=== PATIENT | male | born 1935 | race Caucasian/White ===

== ENCOUNTER 2017-03-30 11:50 | Outpatient (CLI) | payer OTHER, MEDICARE ==
--- NOTE | 2017-03-30 13:09 | RAD ---
CHEST TWO VIEWS: History: Dyspnea. Comparison: 12-10-16 FINDINGS: The cardiac silhouette is upper limits of normal in size. Lungs remain hyperinflated. Extensive scar ring at the right base is similar in appearance to the prior study. There is no lobar consolidation, pneumothorax or pleural fluid evident. Degenerative changes involve the thoracic spine on the later al view. IMPRESSION: COPD and other chronic type findings are stable. POS: [facility]
== END 2017-03-30 11:51 | disposition home or self-care (01) ==
LOC: RAD 11:50
PROVIDERS: ATTEND Internal Medicine Pulmonary Disease
DX: R06.00 Dyspnea, unspecified (principal); J44.9 Chronic obstructive pulmonary disease, unspecified
CPT/HCPCS: 71020

== ENCOUNTER 2017-07-29 13:56 | Outpatient (CLI) | payer OTHER, MEDICARE ==
--- NOTE | 2017-07-29 21:28 | RAD ---
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 pulmonar y nodule. is stable. No acute abnormalities evident. IMPRESSION: Please see redictated report. . POS: [facility]
== END 2017-07-29 13:57 | disposition home or self-care (01) ==
LOC: RAD 13:56
PROVIDERS: ATTEND Thoracic Surgery (Cardiothoracic Vascular Surgery)
DX: C34.31 Malignant neoplasm of lower lobe, right bronchus or lung (principal)
CPT/HCPCS: 71046

== ENCOUNTER 2017-08-09 14:19 | Observation (INO) | payer OTHER, MEDICARE ==
[2017-08-09 14:58] LABS: #Eosinphils 0.2 thou/uL (0.0-0.7); #Lymphocytes 1.2 thou/uL (1.20-3.40); #Monocytes 0.8 thou/uL (0.11-0.59); %Basophils 0.6 % (0.0-1.0); %Eosinophils 2.6 % (0.0-10.0); %Lymphocytes 19.8 % (21.0-51.0); %Monocytes 12.2 % (0.0-10.0); %Neutrophils 64.8 % (42.0-75.0); Hemoglobin 10.7 g/dL (14.0-18.0); Mean Corpuscular HGB CONC 32.6 g/dL (32.0-36.0); Mean Corpuscular Hemoglobin 26.9 pg (27.0-31.0); Mean Corpuscular Volume 82.5 fl (80.0-94.0); Mean Platelet Volume 8.4 fL (7.4-10.4); Platelet Count 255 thou/uL (130-400); RBC Distribution Width 12.8 % (11.5-14.5); Red Blood Cell (RBC) Count 3.96 mill/uL (4.70-6.10); White Blood Cell (WBC) Count 6.1 thou/uL (4.8-10.8)
[2017-08-09 15:23] LABS: ALT (SGPT) 11 U/L (8-55); AST (SGOT) 19 U/L (5-34); Albumin 3.9 g/dL (3.4-4.8); Alkaline Phosphatase 35 U/L (40-150); Anion Gap 13 mmol/L (10-20); BUN (Urea Nitrogen) 25 mg/dL (8.4-25.7); Bilirubin, Total 0.4 mg/dL (0.2-1.2); Calc. Creatinine Clearance 0 mL/min (70-130); Calcium 9.3 mg/dL (7.8-10.44); Carbon Dioxide 22 mmol/L (23-31); Chloride 96 mmol/L (98-107); Estimated GFR-MDRD 38; Globulin 2.9 g/dL (2.4-3.5); Glucose 196 mg/dL (83-110); Potassium 4.4 mmol/L (3.5-5.1); Protein, Total 6.8 g/dL (5.8-8.1); Sodium 127 mmol/L (136-145)
[2017-08-09 15:27] LABS: CKMB 1.4 ng/mL (0-6.6); Troponin I 0.011 ng/mL (< 0.028)
--- NOTE | 2017-08-09 15:44 | RAD ---
PORTABLE CHEST: Date: 08/09/17 HISTORY: Chest pain. COMPARISON: 05/25/17. FINDINGS: Parenchymal stranding in the right lung base is stable. Lung chapa appear well aerated and clear. No infiltrate or vascular congestion seen. Heart size upper normal and stable. IMPRESSION: No acute process. POS: [facility]
[2017-08-09 16:08] LABS: Magnesium 2.2 mg/dL (1.6-2.6); Phosphorus 3.9 mg/dL (2.3-4.7)
[2017-08-09] MEDS ORDERED: Senokot 8.6 MG TAB PO PRN (17:44)
[2017-08-09] MEDS ORDERED: Calcium Carbonate 500 MG ChewTAB PO PRN (17:44)
[2017-08-09] MEDS ORDERED: Milk Of Magnesia 30 ML UDCUP PO PRN (17:44)
[2017-08-09] MEDS ORDERED: Nitroglycerin 0.4 MG TAB (25 Tab Bottle) PO PRN (17:44)
[2017-08-09] MEDS ORDERED: Acetaminophen 325 MG TAB PO PRN (17:44)
[2017-08-09] MEDS ORDERED: Mag-Al 1200 mg/1200 mg/30 ML UDCUP PO PRN (17:44)
[2017-08-09 18:15] VITALS: BMI 33.9
[2017-08-09 18:43] LABS: Troponin I 0.015 ng/mL (< 0.028)
[2017-08-09] MEDS: Sodium Chloride 0.9% 1,000 ML IV SCH (19:49)
[2017-08-09] MEDS ORDERED: Atorvastatin Calcium 10 MG TAB PO SCH ×2 (20:30→21:00)
[2017-08-09] MEDS ORDERED: Dronedarone HCl 400 MG TAB PO SCH (20:30)
[2017-08-09] MEDS ORDERED: Insulin Regular 300 UNITS/3 ML VIAL SC PRN ×2 (20:39)
[2017-08-09] MEDS ORDERED: Dextrose 50% Abboject 50 ML SYRINGE SLOW IVP PRN (20:39)
[2017-08-09] MEDS ORDERED: Dextrose 5% in Water 1,000 ML IV PRN (20:39)
--- NOTE | 2017-08-09 20:45 | PDOC.PN ---
- Subjective Encounter Start Date: 08/09/17 Encounter Start Time: 18:00 Patient seen and examined. - Objective Resuscitation Status: Resuscitation Status FULL:Full Resuscitation MAR Reviewed: Yes Vital Signs & Weight: Vital Signs (12 hours) Temp Pulse Resp BP Pulse Ox 08/09/17 19:33 97.5 F L 77 18 148/86 H 95 08/09/17 17:55 98.1 F 71 20 143/72 H 96 Weight Weight 229 lb 9.6 oz I&O: 08/08/17 08/09/17 08/10/17 06:59 06:59 06:59 Intake Total 240 Balance 240 Result Diagrams: 08/09/17 14:45 08/10/17 04:18 Additional Labs: Laboratory Tests 08/09/17 08/09/17 08/09/17 14:45 14:45 18:09 Troponin I 0.011 0.015 B-Natriuretic Peptide 583.8 H 08/09/17 20:45 Troponin I 0.010 B-Natriuretic Peptide Radiology Reviewed by me: Yes (CXR - no infiltrate/edema) EKG Reviewed by me: Yes (Afib) Phys Exam - Physical Examination Constitutional: NAD HEENT: PERRLA, moist MMs, sclera anicteric Neck: no nodes, no JVD, supple Respiratory: no wheezing, no rales, no rhonchi, clear to auscultation bilateral Cardiovascular: no significant murmur, no rub, irregular no heaves/pulsations Gastrointestinal: soft, non-tender, no distention, positive bowel sounds Musculoskeletal: no edema, pulses present Neurological: non-focal, normal sensation, moves all 4 limbs Psychiatric: normal affect, A&O x 3 Skin: no rash Dx/Plan - Plan * Please see H&P Review of Systems - Review of Systems Constitutional: weakness, malaise. negative: fever, chills, sweats Eyes: Vision Change (blurring of vision - resolved). negative: Pain, Conjunctivae Inflammation, Eyelid Inflammation, Redness ENT: negative: Ear Pain, Ear Discharge, Nose Pain, Nose Discharge, Nose Congestion, Mouth Pain, Mouth Swelling, Throat Pain, Throat Swelling, Other Respiratory: negative: Cough, Dry, Shortness of Breath, Hemoptysis, SOB with Excertion, Pleuritic Pain, Sputum, Wheezing Cardiovascular: negative: chest pain, palpitations, orthopnea, paroxysmal nocturnal dyspnea, edema, light headedness Gastrointestinal: negative: Nausea, Vomiting, Abdominal Pain, Diarrhea, Constipation, Melena, Hematochezia Genitourinary: negative: Dysuria, Frequency, Incontinence, Hematuria, Retention Musculoskeletal: Shoulder Pain (left). negative: Neck Pain, Arm Pain, Back Pain , Hand Pain, Leg Pain, Foot Pain Skin: negative: Rash, Lesions, Hardeep, Bruising, Other Neurological: negative: Weakness, Numbness, Incoordination, Change in Speech, Confusion, Seizures - Medications/Allergies Allergies/Adverse Reactions: Allergies Allergy/AdvReac Type Severity Reaction Status Date / Time No Known Allergies Allergy Verified 08/09/17 18:59 Medications: Current Medications Acetaminophen (Tylenol) 650 mg PO Q4H PRN PRN Reason: Headache/Fever or Pain Al Hydroxide/Mg Hydroxide (Maalox) 30 ml PO Q6H PRN PRN Reason: Heartburn or Indigestion Amlodipine Besylate (Norvasc) 2.5 mg PO DAILY [facility] Aspirin (Aspirin Chewable) 81 mg PO DAILY [facility] Atorvastatin Calcium (Lipitor) 10 mg PO HS [facility] Calcium Carbonate (Tums) 1,000 mg PO Q4H PRN PRN Reason: Heartburn or Indigestion Dextrose/Water (Dextrose 50%) 25 gm SLOW IVP PRN PRN PRN Reason: Hypoglycemia Dronedarone (Multaq) 400 mg PO NOW [facility]1983 Stop: 08/09/17 22:30 Dronedarone (Multaq) 400 mg PO BID-[facility] Fenofibrate (Tricor) 145 mg PO DAILY [facility] Glucagon (Glucagon) 1 mg IM PRN PRN PRN Reason: Hypoglycemia Sodium Chloride (Normal Saline 0.9%) 1,000 mls @ 50 mls/hr IV .Q20H [facility] Last Admin: 08/09/17 19:49 Dose: 1,000 mls Dextrose/Water (D5w) 1,000 mls @ 0 mls/hr IV .Q0M PRN; As Directed PRN Reason: Hypoglycemia Insulin Detemir 25 units/ (Miscellaneous Medication) 0.25 mls @ 0 mls/hr SC HS MELANIA Insulin Human Regular (Humulin R) 0 units SC .MILD SLIDING SCALE PRN PRN Reason: Mild Correctional Scale Insulin Human Regular (Humulin R) 0 units SC .BEDTIME SLIDING SC PRN PRN Reason: Bedtime Correctional Scale Magnesium Hydroxide (Milk Of Magnesium) 30 ml PO DAILYPRN PRN PRN Reason: Constipation Nitroglycerin (Nitrostat) 0.4 mg PO Q5MIN PRN PRN Reason: Chest Pain Non-Formulary Medication (Nebivolol Hcl [Bystolic]) 10 mg PO DAILY MELANIA Rivaroxaban (Xarelto) 15 mg PO DAILY MELANIA Senna (Senokot) 2 tab PO HSPRN PRN PRN Reason: Constipation
[2017-08-09] MEDS ORDERED: Insulin Detemir 100 UNITS/ML 25 UNITS in Admixture Fee SC SCH (21:00)
[2017-08-09 21:27] LABS: Anion Gap 10 mmol/L (10-20); BUN (Urea Nitrogen) 21 mg/dL (8.4-25.7); Calc. Creatinine Clearance 55 mL/min (70-130); Carbon Dioxide 24 mmol/L (23-31); Chloride 100 mmol/L (98-107); Estimated GFR-MDRD 44; Glucose 154 mg/dL (83-110); Potassium 4.2 mmol/L (3.5-5.1); Sodium 130 mmol/L (136-145)
--- NOTE | 2017-08-09 22:35 | CON ---
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 The patient sta wesley that early this morning, he was not feeling well. His sugar was on the low side. Over the day, his weakness became progressive. He also had some diplopia. For that reason, he went to the ER for further evaluation. Initially, the serum sodium was noted to be at 127 and creatinine was at 1.7. Hence, the renal consultation. REVIEW OF SYSTEMS: Positive for generalized malaise. No nausea, no vomiting. Positive for blurry v ision. No overt chest pain, no shortness of breath, no nausea, no vomiting, no syncopal episode, no productive cough. No fever or chills. Appetite is fair. Energy level is fair. No gross hematuria, no dysuria, no urinary frequency. MEDICATIONS: Home medications include Januvia 100 mg daily, glyburide 5 mg q.a.m., Xarelto 15 mg scotty ly, Bystolic 10 mg daily, insulin Tresiba 35-38 units subcu at bedtime, TriCor 145 mg once a day, Mul taq 400 mg p.o. b.i.d., atorvastatin 10 mg tab at bedtime, amlodipine 2.5 mg once a day, aspirin 81 m g daily. PAST MEDICAL HISTORY: 1. Hypertension. 2. 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 3. History of pancreatic mass. 4. Lung cancer - in remission. 5. Chronic atrial fibrillation ? 6. Hyperlipidemia. 7. Status post pneumonia. 8. Type 2 diabetes mellitus. 9. History of SIADH. PAST SURGICAL HISTORY: 1. Status post left knee surgery. 2. Status post right lower lobectomy with mediastinal lymph node dissection. 3. Status post cholecystectomy. SOCIAL HISTORY: The patient is [facility], is single. No children. Several siblings. Smoke d only for 4 years, less than half a pack a day. Alcohol rarely. Education, college graduate. No I V drug abuse. No blood transfusion. FAMILY HISTORY: No family history of ESRD. ALLERGIES: None. TRAUMA: None. IMMUNIZATIONS: Up-to-date. HOSPITALIZATIONS: Please see past medical history. PHYSICAL EXAMINATION: VITAL SIGNS: Currently pending. GENERAL: Awake, comfortable, not in overt distress. SKIN: Adequate turgor. HEENT: Pinkish conjunctivae. Anicteric sclerae. NECK: No neck mass, no carotid bruits, no JVD. LUNGS: Clear breath sounds. No wheezing, no crackles. HEART: Normal sinus rhythm. No murmur, no gallops, no rubs. ABDOMEN: Globular, soft, nontender. EXTREMITIES: No edema, no deformities. LABORATORY DATA: Laboratories of 08/09/2017, white count 6.1, hemoglobin 10.7. Sodium 127, potassiu m 4.4, chloride 96, carbon dioxide 22, BUN 25, creatinine 1.74, GFR 38 mL per minute, glucose 196, ca lcium 9.3, serum osmolality 276, alkaline phosphatase 35, albumin is 3.9. BNP is 583.8. IMAGING: Chest x-ray is clear, no CHF, no infiltrates. ASSESSMENT AND PLAN: 1. Hyponatremia, consider the possibility of hypovolemic hyponatremia since the patient has had decr eased p.o. intake. However, with empiric volume repletion and if this is simply from volume depletio n, the serum sodium should improve. 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 He has had chronic hyponatremia in the past. The serum sodiu m of 127 is near baseline. 2. Chronic renal failure - consider the possibility of hypertensive nephropathy. His previous urina lysis did not show any protein. We are currently also awaiting repeat urine sodium, urine creatinine . For the moment, I agree with empiric volume repletion with this patient with normal saline. We will recheck a base met and CBC in a.m.
[2017-08-10 05:25] LABS: Anion Gap 11 mmol/L (10-20); BUN (Urea Nitrogen) 20 mg/dL (8.4-25.7); Calc. Creatinine Clearance 58 mL/min (70-130); Calcium 9.3 mg/dL (7.8-10.44); Carbon Dioxide 25 mmol/L (23-31); Chloride 102 mmol/L (98-107); Estimated GFR-MDRD 47; Potassium 4.2 mmol/L (3.5-5.1); Sodium 134 mmol/L (136-145)
[2017-08-10 05:29] LABS: Glucose 54 mg/dL (83-110)
--- NOTE | 2017-08-10 06:38 | HP ---
REASON FOR ADMISSION/CHIEF COMPLAINT: Generalized weakness with diaphoresis since this morning. HISTORY OF PRESENT ILLNESS: The patient is an 82-year-old white male with hypertension, diabetes mellitus type 2 on insulin and glyburide presented to the emergency room with the above complaints. The patient presented to the emergency room due to dizziness and not feeling well since this morning. He was also diaphoretic and pale on arrival. He had some diaphoresis, dizziness, and blurriness of vision while he was walking today during his visitation around 8:30 a.m. Please note that patient was n.p.o. overnight for a blood transfusion. He denied any chest pain; however, had some discomfort in the left shoulder. He did not have his usual orange juice at home prior arriving to the hospital. He denies any syncope or other focal neurologic deficit. In the emergency room, his initial vital signs showed temperature 98.1, respiration of 17, pulse of 83 with a blood pressure 143/69 with O2 saturation 98% on room air. His blood sugar this morning was 56. He received 1 liter IV fluid in the emergency room. 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 PAST SURGICAL HISTORY: Lobectomy, left total knee replacement, cholecystectomy. ALLERGIES: No known drug allergies. CURRENT HOME MEDICATIONS: To be verified with the patient. He takes Xarelto, Multaq, glyburide, Levemir 30-40 units at night. FAMILY HISTORY: Brother with CABG in 60s. Mother with history of cancer. SOCIAL HISTORY: No current use of tobacco, alcohol or drug abuse. Full code. DPOA - self/family REVIEW OF SYSTEMS/PHYSICAL EXAMINATION/LABORATORY FINDINGS: Please refer to my progress note. IMPRESSION: 1. Generalized weakness, dizziness with blurriness of vision, multifactorial. 2. Hypoglycemia. The patient took his full dose of Levemir as well as glyburide yesterday despite n.p.o. status. 3. Acute on chronic hyponatremia 4. Paroxysmal atrial fibrillation on anticoagulation. 5. Questionable chest discomfort/left shoulder discomfort, rule out acute coronary syndrome. 6. Chronic kidney disease stage 3. 7. Suspected dehydration due to n.p.o. status as well as blood donation. 8. History of hypertension. 9. History of adenocarcinoma of the lung under remission. 10. Hyperlipidemia. PLAN: The patient will be monitored on the telemetry unit as observation. Cardiology and Nephrology has been consulted. We will confirm and continue his home medications. We will check orthostatic vitals. The patient usually takes 30-40 units of insulin. He is requesting to give him 25 units Levemir tonight. We will hold glyburide. Diabetic diet has been started. We will continue Xarelto. We will check orthostatic vitals. Plan of care was discussed with the patient in detail. He stated understanding. GERSOND
--- NOTE | 2017-08-10 08:48 | PRG ---
DATE OF SERVICE: 08/10/2017 SUBJECTIVE: Mr. Perez is an 82-year-old white male who was admitted for generalized malaise and hypoglycemia. He was also noted to have worsening renal dysfunction as well as hyponatremia. At th at time, I felt this was all volume related. He was empirically given volume repletion, normal salin e. This has improved with his renal function to near baseline as well as improved the hyponatremia. In the past, the patient has been diagnosed with SIADH. I felt that the hyponatremia at this time h ad a prerenal component. This morning he is feeling better, he denies any chest pain or shortness of breath. PHYSICAL EXAMINATION: VITAL SIGNS: Blood pressure is 122/80, heart rate 85, respiratory rate 16, temperature 98.7, pulse o x 96%. GENERAL: Noted to be awake, alert, comfortable, not in distress. SKIN: Adequate turgor. HEENT: The patient has pinkish conjunctivae, anicteric sclerae. NECK: No neck mass, no carotid bruits, no JVD. CHEST: No deformities. LUNGS: Clear breath sounds. No wheezing, no crackles. HEART: Normal sinus rhythm. No murmurs, no gallops, no rubs. ABDOMEN: Globular, soft, nontender, no masses. EXTREMITIES: No edema. MEDICATIONS: Medications of 08/10/2017 was reviewed. LABORATORY DATA: Laboratories of 08/09/2017; white count 6.1, hemoglobin 10.7, sodium 134, potassium 4.2, chloride 102, carbon dioxide 25, BUN 20, creatinine 1.45, GFR 47 mL per minute, glucose 54, chriss cium 9.3. ASSESSMENT AND PLAN: 1. Acute kidney injury on top of his chronic renal failure, superimposed prerenal azotemia, much imp roved with volume repletion. He is nearing baseline glomerular filtration rate. Continue current ma nagement. 2. Hyponatremia - secondary to superimposed hypovolemic hyponatremia, improved with normal saline. Continue current management. No indication for any hypertonic saline. 3. Hypoglycemia, resolved. Agree with current management.
[2017-08-10] MEDS: Dronedarone HCl 400 MG TAB PO SCH ×2 (09:44→16:26)
[2017-08-10] MEDS: Fenofibrate Nanocrystallized 145 MG TAB PO SCH (09:44)
[2017-08-10] MEDS: Nebivolol HCl 5 MG TAB PO SCH (09:45)
[2017-08-10] MEDS: Amlodipine 5 MG TAB PO SCH (09:45)
[2017-08-10] MEDS: Sodium Chloride 0.9% 1,000 ML IV SCH (16:25)
[2017-08-10] MEDS ORDERED: Rivaroxaban 15 MG TAB PO SCH (17:00)
--- NOTE | 2017-08-10 17:54 | PDOC.PN ---
- Subjective Encounter Start Date: 08/10/17 Encounter Start Time: 16:30 Patient seen and examined. No new complaints. No overnight events. Hypoglycemic earlier today. Feels somewhat better. - Objective Resuscitation Status: Resuscitation Status FULL:Full Resuscitation MAR Reviewed: Yes Vital Signs & Weight: Vital Signs (12 hours) Temp Pulse Resp BP BP BP Pulse Ox 08/10/17 15:59 98.0 F 76 15 119/65 96 08/10/17 12:00 97.7 F 80 16 122/64 95 08/10/17 11:30 108/58 L 108/59 L 122/64 08/10/17 09:45 85 08/10/17 07:50 97.7 F 80 16 08/10/17 07:44 98.7 F 85 16 122/80 96 Weight Weight 227 lb I&O: 08/09/17 08/10/17 08/11/17 06:59 06:59 06:59 Intake Total 1365 Output Total 1675 Balance -310 Result Diagrams: 08/11/17 04:27 08/11/17 04:27 Additional Labs: Accuchecks 08/10/17 08/10/17 08/10/17 16:24 12:37 10:21 POC Glucose 156 H 225 H 224 H 08/10/17 08/10/17 08/10/17 08:15 07:38 05:31 POC Glucose 162 H 130 H 107 08/10/17 08/10/17 08/09/17 04:33 02:15 21:00 POC Glucose 60 L 77 171 H EKG Reviewed by me: Yes (Tele Afib) Phys Exam - Physical Examination Constitutional: NAD HEENT: sclera anicteric Respiratory: no wheezing, no rales, no rhonchi, clear to auscultation bilateral Cardiovascular: no rub, irregular no heaves/pulsations Gastrointestinal: soft, non-tender, no distention, positive bowel sounds Musculoskeletal: no edema Neurological: normal sensation, moves all 4 limbs Psychiatric: normal affect, A&O x 3 Dx/Plan - Plan IMPRESSION: 1. Generalized weakness, dizziness with blurriness of vision, multifactorial. improving 2. Hypoglycemia. due to Levemir/glyburide 3. Acute on chronic hyponatremia 4. Paroxysmal atrial fibrillation on anticoagulation. 5. ?chest discomfort/left shoulder discomfort, rule out acute coronary syndrome. 6. Chronic kidney disease stage 3. 7. Suspected dehydration due to n.p.o. status as well as blood donation. 8. History of hypertension. 9. History of adenocarcinoma of the lung under remission. 10. Hyperlipidemia. PLAN: * Cardiology/Nephro input appreciated * Cont gentle hydration * AM labs * Levemir 15 units HS * Glyburide on hold * Cont to monitor * Possible dc in AM if stable * Cont current meds as below Review of Systems - Review of Systems Respiratory: negative: Cough, Dry, Shortness of Breath, Hemoptysis, SOB with Excertion, Pleuritic Pain, Sputum, Wheezing Cardiovascular: negative: chest pain, palpitations, orthopnea, paroxysmal nocturnal dyspnea, edema, light headedness - Medications/Allergies Allergies/Adverse Reactions: Allergies Allergy/AdvReac Type Severity Reaction Status Date / Time No Known Allergies Allergy Verified 08/09/17 18:59 Medications: Current Medications Acetaminophen (Tylenol) 650 mg PO Q4H PRN PRN Reason: Headache/Fever or Pain Al Hydroxide/Mg Hydroxide (Maalox) 30 ml PO Q6H PRN PRN Reason: Heartburn or Indigestion Amlodipine Besylate (Norvasc) 2.5 mg PO DAILY [facility] Last Admin: 08/10/17 09:45 Dose: 2.5 mg Aspirin (Aspirin Chewable) 81 mg PO DAILY [facility] Last Admin: 08/10/17 09:45 Dose: 81 mg Calcium Carbonate (Tums) 1,000 mg PO Q4H PRN PRN Reason: Heartburn or Indigestion Dextrose/Water (Dextrose 50%) 25 gm SLOW IVP PRN PRN PRN Reason: Hypoglycemia Dronedarone (Multaq) 400 mg PO BID-[facility] Last Admin: 08/10/17 16:26 Dose: 400 mg Fenofibrate (Tricor) 145 mg PO DAILY [facility] Last Admin: 08/10/17 09:44 Dose: 145 mg Glucagon (Glucagon) 1 mg IM PRN PRN PRN Reason: Hypoglycemia Sodium Chloride (Normal Saline 0.9%) 1,000 mls @ 50 mls/hr IV .Q20H [facility] Last Admin: 08/10/17 16:25 Dose: 1,000 mls Dextrose/Water (D5w) 1,000 mls @ 0 mls/hr IV .Q0M PRN; As Directed PRN Reason: Hypoglycemia Insulin Detemir 15 units/ (Miscellaneous Medication) 0.15 mls @ 0 mls/hr SC HS MELANIA Insulin Human Regular (Humulin R) 0 units SC .MILD SLIDING SCALE PRN PRN Reason: Mild Correctional Scale Insulin Human Regular (Humulin R) 0 units SC .BEDTIME SLIDING SC PRN PRN Reason: Bedtime Correctional Scale Magnesium Hydroxide (Milk Of Magnesium) 30 ml PO DAILYPRN PRN PRN Reason: Constipation Nebivolol (Bystolic) 10 mg PO DAILY [facility] Last Admin: 08/10/17 09:45 Dose: 10 mg Nitroglycerin (Nitrostat) 0.4 mg PO Q5MIN PRN PRN Reason: Chest Pain Rivaroxaban (Xarelto) 15 mg PO 1700 [facility] Last Admin: 08/10/17 16:26 Dose: 15 mg Senna (Senokot) 2 tab PO HSPRN PRN PRN Reason: Constipation
[2017-08-10] MEDS ORDERED: Atorvastatin Calcium 10 MG TAB PO SCH (21:00)
[2017-08-10] MEDS ORDERED: Insulin Detemir 100 UNITS/ML 15 UNITS in Pre-Filled Syringe SC SCH (21:00)
--- NOTE | 2017-08-10 21:52 | CON ---
DATE OF CONSULTATION: 08/10/2017 HISTORY OF PRESENT ILLNESS: Mr. Osito Perez is an 82-year-old white male followed for the last 6 years. In 07/2011, he was admitted with chest discomfort, underwent Cardiolite testing, which revealed no evidence of ischemia. It was felt this probably due to GERD. He then presented again in with onset of a rapid heartbeat, lightheadedness, and near syncope. He had some dyspnea on exertion, but no chest discomfort. He received a Cardizem drip and converted to sinus rhythm. He was placed on Multaq for control of his atrial fibrillation due to his age and hypertension, was placed on Xarelto 15 mg daily for anticoagulation. In 11/2011 in the office, he was in normal sinus rhythm. In 02/2012, he was seen for preoperative evaluation prior to left total knee replacement. Since he has had normal Cardiolite 4 months prior to that, it was felt that he would be an acceptable risk. In 04/2012, he underwent left total knee replacement and 3 days postoperatively developed atrial fibrillation, which was asymptomatic and only last for a short time. His Xarelto was resumed after surgery. In 09/2012, he was admitted with weakness and a dry cough. He is found to have a 4 cm right lower lobe lung adenocarcinoma. He underwent resection of this. In 12/2016, he was admitted with right upper lobe pneumonia as well as chest discomfort. He underwent Cardiolite testing during that admission, which was negative for ischemia or fixed defect. Last time, he was seen in the office was in 04/2017. He continued to remain in sinus rhythm. He now is admitted with an episode of dizziness and weakness; however, he came to the hospital. He was n.p.o. prior to blood test. He did complain of some left shoulder discomfort, but no chest pain. Blood sugar was 56. He denies any palpitations, although he is in atrial fibrillation at this time. PAST MEDICAL HISTORY: Hypertension, diabetes, hyperlipidemia, paroxysmal atrial fibrillation, renal insufficiency, and history of right lower lobe adenocarcinoma of the lung. OPERATIONS: Right lower lobectomy, left total knee replacement, cholecystectomy , left cataract surgery. MEDICATIONS: When he was last seen in the office include atorvastatin 10 mg daily, Bystolic 10 mg daily, Tresiba 100 units subcu, glyburide 5 mg q.a.m., aspirin 81 daily, Xarelto 15 mg daily, Januvia 100 daily, Multaq 400 mg b.i.d., and Tricor 145 mg daily. ALLERGIES: None. FAMILY HISTORY: Brother had CABG in his 60s. SOCIAL HISTORY: He smoked in the distant past. He does not drink alcohol. REVIEW OF SYSTEMS: Twelve-point review of systems otherwise unremarkable. PHYSICAL EXAMINATION: VITAL SIGNS: Blood pressure 122/80, pulse of 85, and irregularly irregular. HEENT: PERRL. NECK: Supple. CHEST: Clear. CARDIAC: S1 and S2 normal, without any S3, S4, or murmurs. ABDOMEN: Normal bowel sounds, without tenderness, organomegaly. EXTREMITIES: Revealed no clubbing, cyanosis or edema. NEUROLOGIC: Grossly intact. SKIN: Warm and dry. LABORATORY DATA: EKG revealed atrial fibrillation with rate of 88 per minute and poor R-wave progression. Cardiac enzymes x3 are normal. Hemoglobin 10.7, hematocrit 32.7, white count 6100, and platelets 255,000. Sodium 134, potassium 4.2, chloride 102, carbon dioxide 25, BUN 20, creatinine 1.45, glucose this morning is 54. Sodium on admission was 127. BNP 583.8. IMPRESSION: 1. Episode of extreme weakness and diaphoresis, probably secondary to hypoglycemia. 2. Currently in atrial fibrillation with history of paroxysmal atrial fibrillation. I do not think he has had an episode of atrial fibrillation for approximately 5 years. 3. Normal Cardiolite in 12/2016. 4. Hypertension. 5. Diabetes. 6. Hyperlipidemia. 7. Positive family history. 8. Distant smoker. 9. Chronic kidney disease. 10. History of resection of right lower lobe adenocarcinoma of the lung. 11. History of chronic hyponatremia. PLAN: His atrial fibrillation continue to be monitored at this time. It is uncertain how long he has been back in atrial fibrillation. He does not appear to be too symptomatic from that. DISCUSSION: We will continue discussion regarding attempt to return to sinus rhythm with electrical cardioversion or if we are content to just continue with the atrial fibrillation. This certainly may have contributed to some of his symptoms yesterday, although I think the majority of symptoms are due to hypoglycemia. If he is discharged, I will see him in 2 weeks to see is atrial fibrillation persists and consider cardioversion at that time. MOSES
[2017-08-11 04:47] LABS: #Eosinphils 0.2 thou/uL (0.0-0.7); #Lymphocytes 1.5 thou/uL (1.20-3.40); #Monocytes 0.7 thou/uL (0.11-0.59); #Neutrophils 2.9 thou/uL (1.40-6.50); %Basophils 0.5 % (0.0-1.0); %Eosinophils 4.5 % (0.0-10.0); %Lymphocytes 28.6 % (21.0-51.0); %Monocytes 12.7 % (0.0-10.0); %Neutrophils 53.7 % (42.0-75.0); Hemoglobin 10.3 g/dL (14.0-18.0); Mean Corpuscular Hemoglobin 26.8 pg (27.0-31.0); Mean Corpuscular Volume 81.3 fl (80.0-94.0); Mean Platelet Volume 7.8 fL (7.4-10.4); Platelet Count 215 thou/uL (130-400); RBC Distribution Width 12.8 % (11.5-14.5); Red Blood Cell (RBC) Count 3.85 mill/uL (4.70-6.10); White Blood Cell (WBC) Count 5.4 thou/uL (4.8-10.8)
[2017-08-11 05:02] LABS: Anion Gap 8 mmol/L (10-20); BUN (Urea Nitrogen) 17 mg/dL (8.4-25.7); Calc. Creatinine Clearance 63 mL/min (70-130); Carbon Dioxide 26 mmol/L (23-31); Chloride 100 mmol/L (98-107); Estimated GFR-MDRD 50; Glucose 137 mg/dL (83-110); Potassium 4.1 mmol/L (3.5-5.1); Sodium 130 mmol/L (136-145)
[2017-08-11] MEDS: Amlodipine 5 MG TAB PO SCH (08:17)
[2017-08-11] MEDS: Dronedarone HCl 400 MG TAB PO SCH (08:17)
[2017-08-11] MEDS: Nebivolol HCl 5 MG TAB PO SCH (08:18)
[2017-08-11] MEDS: Fenofibrate Nanocrystallized 145 MG TAB PO SCH (08:18)
--- NOTE | 2017-08-11 09:26 | PRG ---
DATE OF SERVICE: 08/11/2017 SUBJECTIVE: Mr. Perez is an 82-year-old white male who was admitted for volume depletion. He w as also noted to be hyponatremic. He was empirically given normal saline. This improved the serum s odium as well as the creatinine. No new complaints today. He is feeling better. He denies any ches t pain or shortness of breath. PHYSICAL EXAMINATION: VITAL SIGNS: Blood pressure 142/68, heart rate 68, respiratory rate 20, temperature 97.5, pulse oxim etry 98% on room air. GENERAL: Awake, alert, supine, comfortable, not in distress. SKIN: Adequate turgor. HEENT: Pinkish conjunctivae. Anicteric sclerae. NECK: No neck mass, no carotid bruits, no JVD. CHEST: No deformities. LUNGS: Clear breath sounds. No wheezing, no crackles. HEART: Normal sinus rhythm. No murmur, no gallops, no rubs. ABDOMEN: Globular, soft, nontender, no masses. EXTREMITIES: No edema, no deformities. MEDICATIONS: Medications of 08/11/2017 was reviewed. LABORATORY DATA: Laboratories of 08/11/2017; white count 5.4, hemoglobin 10.3. Sodium 130, potassiu m 4.1, chloride 100, carbon dioxide 26, BUN 17, creatinine 1.36, GFR 50 mL per minute, glucose 130, c alcium 9.0. ASSESSMENT AND PLAN: 1. Acute kidney injury, superimposed prerenal ischemia, improved renal function with empiric volume repletion. 2. Hyponatremia, stable. The patient may have a superimposed hypovolemic hyponatremia. Serum sodiu m was 130. He has also of note had an underlying syndrome of inappropriate antidiuretic hormone secr etion. Continue free water restriction at the present time. Patient is now volume replete. He is o ff his normal saline. 3. Chronic atrial fibrillation - managed by Cardiology. He is currently on anticoagulation. He is noted to be asymptomatic. Agree with current management.
--- NOTE | 2017-08-11 12:05 | DIS ---
DATE OF DISCHARGE: 08/11/2017 DISCHARGE DISPOSITION: Home. FOLLOWUP: Follow up with primary care physician, Dr. Richard in 1 week. Follow up with Dr. Caballero [facility] in 2 weeks for possible cardioversion. Fall precaution was emphasized. The patient was advised to return to emergency room if he develops a ny new dizziness, palpitations or chest discomfort. INPATIENT CONSULTANTS: Nephrology, Dr. Moya and Cardiology, Dr. Fdeerico Alfaro. The patient was seen on the day of discharge, denies any new complaints, no chest pain, shortness of breath, palpitations. Blood sugars stable. BRIEF HOSPITAL COURSE: The patient is an 82-year-old white male with hypertension, diabetes mellitus type 2, who presented to the emergency room with generalized weakness, diaphoresis and left shoulder discomfort. Please refer to the history and physical dated 08/09/2017 for further details. The patient was admitted to the telemetry unit with the above diagnosis. His serial cardiac enzymes were normal. His symptoms were probably secondary to hypoglycemia along with dehydration and hyponat remia. His blood glucose has been stabilized. His insulin dose has been reduced to 20 units at bedt kasia from 38 units at bedtime. Glyburide has been discontinued as well. Patient also had hyponatremia with sodium of 127 on admission. 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 On the day of discharge his sodium is 130. Yesterday it was 134. IV fluids have been discontinued this morning. He has been cleared by Cardiology and Ne phrology for discharge. He was advised to monitor his blood sugar level closely. His chest x-ray on admission was negative for infiltrate. FINAL DIAGNOSES: 1. Generalized weakness, dizziness with blurriness of vision, multifactorial, resolved. 2. Left shoulder discomfort, acute coronary syndrome ruled out. 3. Paroxysmal atrial fibrillation on Xarelto. The patient will see Dr. Alfaro for possible cardio version after 2 weeks. 4. 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 5. Hypoglycemia, probably secondary to Levemir with glyburide. Please note that patient was fasting for a blood transfusion on the day of admission. 6. Chronic kidney disease stage 3. 7. Hypertension. 8. Lung adenocarcinoma under remission. 9. Hyperlipidemia. Plan of care was discussed with the patient in detail. He stated understanding.
[2017-08-11 12:12] VITALS: BP 123/63; TEMP 98.2
--- NOTE | 2017-08-14 17:49 | EKG ---
Test Reason : Blood Pressure : / mmHG Vent. Rate : 088 BPM Atrial Rate : 312 BPM P-R Int : 000 ms QRS Dur : 096 ms QT Int : 386 ms P-R-T Axes : 000 064 046 degrees QTc Int : 467 ms Atrial fibrillation Abnormal ECG Confirmed by SOLOMON LAGUERRE MD ([id number]), graphic editor ILANA STRINGER ([id number]) on 08/14/2017 5:49:26 PM Referred By: Confirmed By:SOLOMON LAGUERRE MD
== END 2017-08-11 12:19 | disposition home or self-care (01) ==
LOC: ERS 14:19 → 2SW 15:46
PROVIDERS: ADMIT Internal Medicine; ATTEND Internal Medicine
DX: R53.1 Weakness (principal); M25.512 Pain in left shoulder; I48.0 Paroxysmal atrial fibrillation; E87.1 Hypo-osmolality and hyponatremia; E78.5 Hyperlipidemia, unspecified; I12.9 Hypertensive chronic kidney disease with stage 1 through stage 4 chronic kidney disease, or unspecified chronic kidney disease; E11.22 Type 2 diabetes mellitus with diabetic chronic kidney disease; N18.3 Chronic kidney disease, stage 3 (moderate); E11.649 Type 2 diabetes mellitus with hypoglycemia without coma; Z79.01 Long term (current) use of anticoagulants; Z79.4 Long term (current) use of insulin; Z98.890 Other specified postprocedural states; Z85.118 Personal history of other malignant neoplasm of bronchus and lung
CPT/HCPCS: 36415; 36416; 71045; 80048; 80053; 80061; 82553; 83036; 83735; 83880; 83930; 84100; 84484; 85025; 93005; 96360; 96361; G0378; J1815

== ENCOUNTER 2017-11-11 06:22 | Emergency (ER) | payer OTHER, MEDICARE | END 2017-11-11 08:37 | LOC: ERS 06:22 | DX: S00.81XA Abrasion of other part of head, initial encounter (principal); I48.91 Unspecified atrial fibrillation; E78.5 Hyperlipidemia, unspecified; E11.9 Type 2 diabetes mellitus without complications; I10 Essential (primary) hypertension; Z79.899 Other long term (current) drug therapy; Z79.01 Long term (current) use of anticoagulants; Z79.82 Long term (current) use of aspirin; W26.8XXA Contact with other sharp object(s), not elsewhere classified, initial encounter | CPT/HCPCS: 99283 ==

== ENCOUNTER 2017-12-13 07:11 | Outpatient (CLI) | payer OTHER, MEDICARE ==
--- NOTE | 2017-12-13 10:23 | CT ---
CT CHEST WITH IV CONTRAST: HISTORY: Right lower lobe lung neoplasm. Prior surgery. Restaging. COMPARISON: 12/14/2016 and 12/21/2016 FINDINGS: Postoperative changes of the right hilum and prior surgical resection are again demonstrated. Mild s carring at the right base and minimal right pleural fluid are stable. No new parenchymal lung mass i s apparent. No pneumothorax or mediastinal adenopathy. Calcification within the arterial structures . The inferior-most images again partially demonstrate a heterogeneous pancreatic mass. IMPRESSION: 1. Stable postoperative appearance of the chest. No new lung masses. 2. Atherosclerosis. 3. Pancreatic mass, partially visualized. POS: [facility]
[2017-12-13] MEDS ORDERED: Iopamidol 370 76% 100 ML VIAL ONE (13:00)
== END 2017-12-13 07:12 | disposition home or self-care (01) ==
LOC: CT 07:11
PROVIDERS: ATTEND Internal Medicine Hematology & Oncology
DX: C34.31 Malignant neoplasm of lower lobe, right bronchus or lung (principal); I70.8 Atherosclerosis of other arteries; Z98.890 Other specified postprocedural states
CPT/HCPCS: 71260; 82565

== ENCOUNTER 2018-06-17 12:37 | Outpatient (CLI) | payer MEDICARE, BC ==
[2018-06-17 13:44] LABS: Hemoglobin 13.9 g/dL (14.0-18.0); Mean Corpuscular HGB CONC 32.9 g/dL (32.0-36.0); Mean Corpuscular Hemoglobin 27.7 pg (27.0-31.0); Mean Corpuscular Volume 84.3 fL (78.0-98.0); Mean Platelet Volume 8.8 fL (7.4-10.4); Platelet Count 254 thou/uL (130-400); RBC Distribution Width 13.3 % (11.5-14.5); Red Blood Cell (RBC) Count 5.01 mill/uL (4.70-6.10); White Blood Cell (WBC) Count 6.4 thou/uL (4.8-10.8)
[2018-06-17 13:55] LABS: INR-International Normal Ratio 2.4; PTT 40.6 SEC (22.9-36.1); Prothrombin Time 26.5 SEC (12.0-14.7)
[2018-06-17 14:07] LABS: Anion Gap 14 mmol/L (10-20); BUN (Urea Nitrogen) 23 mg/dL (8.4-25.7); Calc. Creatinine Clearance 0 mL/min (70-130); Calcium 9.5 mg/dL (7.8-10.44); Carbon Dioxide 23 mmol/L (23-31); Chloride 102 mmol/L (98-107); Estimated GFR-MDRD 38; Glucose 153 mg/dL (83-110); Potassium 4.9 mmol/L (3.5-5.1); Sodium 134 mmol/L (136-145)
--- NOTE | 2018-06-17 17:07 | EKG ---
Test Reason : Blood Pressure : / mmHG Vent. Rate : 087 BPM Atrial Rate : 271 BPM P-R Int : 000 ms QRS Dur : 114 ms QT Int : 402 ms P-R-T Axes : 000 115 054 degrees QTc Int : 483 ms Atrial flutter with variable A-V block Left posterior fascicular block Prolonged QT Abnormal ECG When compared with ECG of 09-AUG-2017 14:29, Atrial flutter has replaced Atrial fibrillation Left posterior fascicular block is now Present Criteria for Septal infarct are no longer Present Confirmed by DR. Joseph TARIQ ([id number]) on 06/17/2018 5:07:13 PM Referred By: KATHERINE Confirmed By:DR. Joseph TARIQ
== END 2018-06-17 12:38 | disposition home or self-care (01) ==
LOC: LABBT 12:37
PROVIDERS: ATTEND Internal Medicine Cardiovascular Disease
DX: Z01.818 Encounter for other preprocedural examination (principal); I48.91 Unspecified atrial fibrillation
CPT/HCPCS: 80048; 85027; 85610; 85730; 93005; 93010

== ENCOUNTER 2018-06-22 05:41 | Day surgery (SDC) | payer MEDICARE, BC ==
[2018-06-17 12:57] VITALS: BMI 29.8
[2018-06-22] MEDS ORDERED: PROPOFOL 20 ML ONE (07:12)
--- NOTE | 2018-06-22 12:11 | OP ---
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 He is here for planned cardioversion. He has been on Xarelto chronically. DESCRIPTION OF PROCEDURE: The patient received propofol by Anesthesia specialist. After adequate level of sedation achieved, a single 200-joule synchronized shock promptly converted the patient back to sinus rhythm. CONCLUSION: Successful cardioversion. PLAN: Continue flecainide and Xarelto and monitor for recurrence. Job ID: [id number]
[2018-06-22] MEDS ORDERED: PROPOFOL 200 MG/20 ML VIAL ONE (15:42)
== END 2018-06-22 09:35 | disposition home or self-care (01) ==
LOC: CCL 05:41
PROVIDERS: ATTEND Internal Medicine Cardiovascular Disease
PROC: 5A2204Z Restoration of Cardiac Rhythm, Single (ICD-10-PCS; principal; 2018-06-22)
DX: I48.1 Persistent atrial fibrillation (principal); E78.5 Hyperlipidemia, unspecified; E11.9 Type 2 diabetes mellitus without complications; M19.90 Unspecified osteoarthritis, unspecified site; I10 Essential (primary) hypertension; Z85.118 Personal history of other malignant neoplasm of bronchus and lung; Z79.01 Long term (current) use of anticoagulants; Z79.4 Long term (current) use of insulin; Z79.82 Long term (current) use of aspirin; Z79.899 Other long term (current) drug therapy; Z90.2 Acquired absence of lung [part of]
CPT/HCPCS: 92960; J2704

== ENCOUNTER 2018-08-15 10:45 | Outpatient (CLI) | payer MEDICARE, BC ==
[2018-08-15 12:29] LABS: Hemoglobin 13.4 g/dL (14.0-18.0); Mean Corpuscular HGB CONC 30.9 g/dL (32.0-36.0); Mean Corpuscular Hemoglobin 26.9 pg (27.0-31.0); Mean Corpuscular Volume 86.9 fL (78.0-98.0); Mean Platelet Volume 9.5 fL (7.4-10.4); Platelet Count 215 thou/uL (130-400); RBC Distribution Width 12.7 % (11.5-14.5); Red Blood Cell (RBC) Count 4.98 mill/uL (4.70-6.10); White Blood Cell (WBC) Count 7.2 thou/uL (4.8-10.8)
[2018-08-15 12:36] LABS: INR-International Normal Ratio 2.2; Prothrombin Time 24.4 SEC (12.0-14.7)
[2018-08-15 12:37] LABS: PTT 40.7 SEC (22.9-36.1)
[2018-08-15 12:53] LABS: Anion Gap 13 mmol/L (10-20); BUN (Urea Nitrogen) 22 mg/dL (8.4-25.7); Calc. Creatinine Clearance 0 mL/min (70-130); Calcium 9.8 mg/dL (7.8-10.44); Carbon Dioxide 24 mmol/L (23-31); Chloride 98 mmol/L (98-107); Estimated GFR-MDRD 40; Glucose 259 mg/dL (83-110); Potassium 4.9 mmol/L (3.5-5.1); Sodium 130 mmol/L (136-145)
--- NOTE | 2018-08-15 20:44 | EKG ---
Test Reason : Blood Pressure : / mmHG Vent. Rate : 110 BPM Atrial Rate : 110 BPM P-R Int : 200 ms QRS Dur : 128 ms QT Int : 350 ms P-R-T Axes : 088 128 070 degrees QTc Int : 473 ms Probable atrial flutter with 2:1 conduction Non-specific intra-ventricular conduction block ST elevation consider inferior injury or acute infarct * ACUTE PA * Abnormal ECG When compared with ECG of 17-JUN-2018 13:28, Sinus rhythm has replaced Atrial flutter ST elevation now present in Inferior leads Confirmed by DR. Joseph TARIQ ([id number]) on 08/15/2018 8:44:14 PM Referred By: [facility] Confirmed By:DR. Joseph TARIQ
== END 2018-08-15 10:46 | disposition home or self-care (01) ==
LOC: LABBT 10:45
PROVIDERS: ATTEND Internal Medicine Cardiovascular Disease
DX: Z01.818 Encounter for other preprocedural examination (principal); I48.91 Unspecified atrial fibrillation
CPT/HCPCS: 80048; 85027; 85610; 85730; 93005; 93010

== ENCOUNTER 2018-08-22 05:50 | Observation (INO) | payer MEDICARE, BC ==
[2018-08-15 10:55] VITALS: BMI 29.5
[2018-08-22] MEDS ORDERED: Heparin 10,000 UNITS/1 ML VIAL ONE (06:51)
[2018-08-22 07:01] LABS: INR-International Normal Ratio 2.6; Prothrombin Time 27.9 SEC (12.0-14.7)
[2018-08-22 07:02] LABS: PTT 46.2 SEC (22.9-36.1)
[2018-08-22] MEDS ORDERED: Fentanyl 100 MCG/2 ML VIAL ONE (08:31)
[2018-08-22] MEDS ORDERED: Phenylephrine HCL 10 MG/ML VIAL ONE (08:39)
[2018-08-22] MEDS ORDERED: PHENYLEPHRINE-NS 100 MCG/ML 10 ML SYRINGE ONE ×2 (08:39→09:59)
[2018-08-22] MEDS ORDERED: Isoproterenol 0.2 MG/1 ML AMP ONE ×2 (08:42→09:18)
[2018-08-22] MEDS ORDERED: Ondansetron PF 4 MG/2 ML Vial ONE (09:59)
[2018-08-22] MEDS ORDERED: Lidocaine 2% PF 100 mg/5 ml Syringe ONE (09:59)
[2018-08-22] MEDS ORDERED: Metoclopramide HCl 10 MG/2 ML VIAL ONE (09:59)
[2018-08-22] MEDS ORDERED: Protamine Sulfate 250 MG/25 ML VIAL ONE (09:59)
[2018-08-22] MEDS ORDERED: Heparin 30,000 units/30 ml VIAL ONE (09:59)
[2018-08-22] MEDS ORDERED: Glycopyrrolate 0.2 MG/ML 5 ML SYRINGE ONE (09:59)
[2018-08-22] MEDS ORDERED: PROPOFOL 200 MG/20 ML VIAL ONE (09:59)
[2018-08-22] MEDS ORDERED: Rocuronium Bromide 10 MG/ML (10ML VIAL) ONE (09:59)
[2018-08-22] MEDS ORDERED: Heparin 25,000 units/D5W 500 ML ONE (11:32)
[2018-08-22] MEDS ORDERED: Protamine Sulfate 50 MG/5 ML VIAL ONE ×2 (11:55)
--- NOTE | 2018-08-22 16:06 | OP ---
DATE OF PROCEDURE: 08/22/2018 PROCEDURES PERFORMED: Electrophysiology study and radiofrequency ablation. 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 He is here for ablation therapy. The patient has been well anticoagulated with Xarelto. DESCRIPTION OF PROCEDURE: The patient received propofol by Anesthesia specialist. General anesthesia was performed. After adequate level of sedation achieved, the left and right femoral veins were prepped, draped, and anesthetized using subcutaneous lidocaine and the veins were accessed x2 with a multipurpose needle under ultrasound guidance in both sides. On the left side, an 11-Slovenian sheath was used to advance the intracardiac echocardiogram probe, which was used to monitor transseptal procedure and rule out effusion. Also on the left side, a Preface sheath was used to advanced a DuoDeca catheter to the CS and the right atrial positions. On the right side, two 8-Slovenian sheaths were introduced initially with through which a ThermoCool SFST catheter was advanced to the right atrium. Right atrial map and pace mapping was performed in the right atrium. His bundle and CS os were clearly delineated. The baseline rhythm was atrial flutter with flutter cycle length of 234 milliseconds. Overdrive pacing of cavotricuspid isthmus entering the arrhythmia and the post pacing interval matched the tachycardia cycle length. This suggestive of cavotricuspid isthmus dependency. Following that, radiofrequency ablation was performed using 40 cavazos energy transecting the cavotricuspid isthmus, which terminated the atrial flutter. At that point, proximal CS pacing was performed and the transisthmus line was prolonged up to 150 milliseconds to 140 milliseconds, longest transisthmus measurements were adjacent to the ablation line suggestive of cavotricuspid isthmus block. At this point, transseptal puncture was performed x2 with ultrasound guidance. Heparin was administered, which adjusted to ACT over 350 throughout the case. Two SL0 sheaths were introduced through which a ThermoCool SFST catheter expressed a 20-pole deflectable Lasso catheter was advanced to the left atrium. 3D map of the left atrium obtained. Following that, pulmonary venous isolation procedure was performed isolating all 4 pulmonary veins. The superior and inferior posterior lines were also drawn, which isolated the posterior wall sufficiently. Throughout the posterior wall ablation, careful attention was paid not to injure the esophagus by temperature monitoring. At this point, Isuprel was administered at 10 mcg. Any reconnections re-ablated. Following that, the catheter was drawn back to the right atrium and the cavotricuspid isthmus again rechecked. The patient remained in sinus rhythm through this. No complications noted. The patient remained stable throughout. Protamine was administered and the sheaths were pulled in the slab polisher after ACT dropped below 180. The patient tolerated the procedure well. No complications noted. HV interval was 62 milliseconds, Wenckebach cycle length was 270 milliseconds. Burst atrial pacing did not re-induce atrial arrhythmias. During Isuprel, no significant PAC burden was seen. Total ablation time was 30 minute @ 40 cavazos. CONCLUSION: 1. 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 2. Status post cavotricuspid isthmus ablation - successfully terminating the flutter and prolonging trans-isthmus time- -which is suggestive of cavotricuspid block. It eliminated the re-inducibility of the atrial flutter. 3. Inducible atrial fibrillation. 4. Successful pulmonary venous isolation procedure.. Job ID: [id number] [facility]
[2018-08-22] MEDS: Rivaroxaban 15 MG TAB PO SCH (16:40)
[2018-08-22] MEDS ORDERED: Insulin Glargine 25 UNITS in Pre-Filled Syringe 1 EACH SC SCH (21:00)
[2018-08-23] MEDS ORDERED: Alogliptin 25 MG TAB PO SCH (09:00)
[2018-08-23] MEDS ORDERED: Amlodipine 5 MG TAB PO SCH (09:00)
[2018-08-23] MEDS ORDERED: Carvedilol 6.25 MG TAB PO SCH (09:00)
[2018-08-23] MEDS ORDERED: Loratadine 10 MG TAB PO SCH (09:00)
[2018-08-23] MEDS ORDERED: Fenofibrate Nanocrystallized 145 MG TAB PO SCH (09:00)
[2018-08-23] MEDS ORDERED: Aspirin Chewable 81 MG TAB PO SCH (09:00)
[2018-08-23] MEDS ORDERED: Atorvastatin Calcium 10 MG TAB PO SCH (09:00)
--- NOTE | 2018-08-23 09:35 | EKG ---
Test Reason : POST ABLATION Blood Pressure : / mmHG Vent. Rate : 077 BPM Atrial Rate : 077 BPM P-R Int : 206 ms QRS Dur : 104 ms QT Int : 432 ms P-R-T Axes : 057 088 088 degrees QTc Int : 488 ms Sinus rhythm with occasional Premature ventricular complexes Prolonged QT Abnormal ECG When compared with ECG of 15-AUG-2018 11:28, Previous ECG has undetermined rhythm, needs review Questionable change in QRS duration Confirmed by DR. Chun MILAN ([id number]) on 08/23/2018 9:34:38 AM Referred By: [facility] Confirmed By:DR. Chun MILAN
--- NOTE | 2018-08-23 09:37 | EKG ---
Test Reason : SITTING UP IN CHAIR Blood Pressure : / mmHG Vent. Rate : 098 BPM Atrial Rate : 098 BPM P-R Int : 216 ms QRS Dur : 100 ms QT Int : 372 ms P-R-T Axes : 056 083 063 degrees QTc Int : 474 ms Sinus rhythm with 1st degree A-V block Otherwise normal ECG When compared with ECG of 22-AUG-2018 13:21, (Unconfirmed) Premature ventricular complexes are no longer Present Nonspecific T wave abnormality no longer evident in Lateral leads Confirmed by DR. Chun MILAN ([id number]) on 08/23/2018 9:37:17 AM Referred By: [facility] Confirmed By:DR. Chun MILAN
[2018-08-23] MEDS ORDERED: Ketorolac Tromethamine 30 MG/ML VIAL IVP SCH (10:15)
[2018-08-23] MEDS ORDERED: Furosemide 20 MG TAB PO SCH ×2 (13:15)
--- NOTE | 2018-08-23 15:47 | DIS ---
DATE OF ADMISSION: 08/22/2018 DATE OF DISCHARGE: 08/23/2018 ADMITTING DIAGNOSIS: Atrial fibrillation. ADMITTING PHYSICIAN: Ryan Carrasquillo MD PROCEDURES PERFORMED: Electrophysiology study and radiofrequency ablation for atrial fibrillation. 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 He was brought to [facility] for an elective outpatient ablation therapy. He received a total of 30 minutes of RF energy delivered and underwent successful cavotricuspid isthmus ablation in addition to successful pulmonary venous isolation. He has been stable since the end of the procedure. He has not had any early recurrence of atrial arrhythmias and maintained sinus rhythm with heart rate slightly elevated in the 90s. He is breathing easily. He has had some low urine output since his Briscoe was removed. Bladder scans did not reveal any urinary retention issues. Father Ana feels well. He denies any heart racing palpitations, syncope, near syncope, stroke, stroke-like symptoms, nausea, vomiting, diarrhea, or bleeding issues. He was having some chest wall pain typical post ablation that was provoked by deep inspiration that responded with complete resolution with single dose of IV Toradol. Since then, he has no cardiac concerns or complaints. OBJECTIVE: VITAL SIGNS: Temperature 97.8, pulse 94, blood pressure 109/56, respirations 18, and oxygen is 95%. GENERAL: The patient is alert and oriented. Speech is clear. Affect is appropriate. NEUROLOGIC: Grossly intact and nonfocal. NECK: Supple without jugular venous distention. LUNGS: Course throughout, but without any overt wheezes, crackles, or rhonchi. ABDOMEN: Soft and nontender without palpable masses. Hepatojugular reflux is negative. EXTREMITIES: Warm and dry to touch with some trace bilateral edema. Gait is slow, but steady. Fluid balance is up 1.2 L. He was given a dose of p.o. Lasix this afternoon with minimal output following. DISCHARGE INSTRUCTIONS: No lifting more than 5 to 10 pounds for 1 week. No soaking baths for 1 week. No driving for 2 days. No interruption in blood thinning medications unless directed by T[facility]. Contact [facility] with any postablation questions. Light duty for 7 days, then resume activity gradually as tolerated. Monitor for signs of heart failure including weight gain, swelling of the extremities, shortness of breath, and orthopnea. DISCHARGE MEDICATIONS: Home medications resumed. 1. Loratadine 10 mg daily. 2. Aspirin 81 mg daily. 3. Amlodipine 2.5 mg daily. 4. Xarelto 15 mg daily. 5. Tricor 145 mg daily. 6. Carvedilol 6.25 mg p.o. b.i.d. 7. Lipitor 10 mg p.o. daily. 8. Sitagliptin 100 mg p.o. daily. 9. Tresiba 25 units subcu at bedtime. New prescriptions include; 1. Carafate 1 g p.o. q.i.d. x2 weeks. 2. Potassium chloride 20 mEq daily as needed to be taken with Lasix. 3. Lasix 40 mg p.o. daily as needed for shortness of breath, swelling of the extremities, and orthopnea. 4. Protonix 40 mg p.o. daily. Discharge medications include flecainide. CONDITION AT DISCHARGE: Stable. Job ID: [id number]
[2018-08-23 16:30] VITALS: BP 106/59; TEMP 99
[2018-08-23] MEDS: Rivaroxaban 15 MG TAB PO SCH (18:31)
== END 2018-08-23 17:22 | disposition home or self-care (01) ==
LOC: CCL 05:50 → 2SW 14:17
PROVIDERS: ADMIT Internal Medicine Cardiovascular Disease; ATTEND Internal Medicine Cardiovascular Disease
PROC: 02583ZZ Destruction of Conduction Mechanism, Percutaneous Approach (ICD-10-PCS; principal; 2018-08-22)
PROC: 02K83ZZ Map Conduction Mechanism, Percutaneous Approach (ICD-10-PCS; 2018-08-22)
PROC: 4A023FZ Measurement of Cardiac Rhythm, Percutaneous Approach (ICD-10-PCS; 2018-08-22)
PROC: 4A0234Z Measurement of Cardiac Electrical Activity, Percutaneous Approach (ICD-10-PCS; 2018-08-22)
DX: I48.1 Persistent atrial fibrillation (principal); I48.92 Unspecified atrial flutter; I10 Essential (primary) hypertension; E11.9 Type 2 diabetes mellitus without complications; E78.5 Hyperlipidemia, unspecified; Z85.118 Personal history of other malignant neoplasm of bronchus and lung; Z90.2 Acquired absence of lung [part of]; Z79.82 Long term (current) use of aspirin; Z79.01 Long term (current) use of anticoagulants; Z79.4 Long term (current) use of insulin; Z79.2 Long term (current) use of antibiotics; Z79.899 Other long term (current) drug therapy
CPT/HCPCS: 36415; 36416; 51798; 76942; 85347; 85610; 85730; 92960; 93005; 93010; 93613; 93623; 93655; 93656; 93662; 96374; C1730; C1731; C1732; C1759; C1769; G0378; J1644; J1825; J1885; J2001; J2370; J2405; J2704; J2710; J2720; J2765; J3010

== ENCOUNTER 2018-08-24 00:36 | Inpatient (IN) | payer MEDICARE, BC ==
[2018-08-24] MEDS ORDERED: Acetaminophen 500 MG TAB ONE (01:12)
[2018-08-24] MEDS ORDERED: Piperacillin/Tazobactam 4.5 GM VIAL ONE (01:12)
[2018-08-24 01:23] LABS: #Lymphocytes 0.6 thou/uL (1.20-3.40); #Monocytes 1.2 thou/uL (0.11-0.59); #Neutrophils 11.9 thou/uL (1.40-6.50); %Basophils 0.2 % (0.0-1.0); %Eosinophils 0.3 % (0.0-10.0); %Lymphocytes 4.6 % (21.0-51.0); %Monocytes 8.7 % (0.0-10.0); %Neutrophils 86.2 % (42.0-75.0); Hemoglobin 11.8 g/dL (14.0-18.0); Mean Corpuscular HGB CONC 32.8 g/dL (32.0-36.0); Mean Corpuscular Hemoglobin 28.3 pg (27.0-31.0); Mean Corpuscular Volume 86.5 fL (78.0-98.0); Mean Platelet Volume 9.5 fL (7.4-10.4); Platelet Count 150 thou/uL (130-400); RBC Distribution Width 12.8 % (11.5-14.5); Red Blood Cell (RBC) Count 4.15 mill/uL (4.70-6.10); White Blood Cell (WBC) Count 13.8 thou/uL (4.8-10.8)
[2018-08-24 01:41] LABS: ALT (SGPT) 30 U/L (8-55); AST (SGOT) 50 U/L (5-34); Albumin 3.7 g/dL (3.4-4.8); Alkaline Phosphatase 33 U/L (40-150); Anion Gap 16 mmol/L (10-20); BUN (Urea Nitrogen) 25 mg/dL (8.4-25.7); Bilirubin, Total 2.4 mg/dL (0.2-1.2); Calc. Creatinine Clearance 0 mL/min (70-130); Calcium 8.7 mg/dL (7.8-10.44); Carbon Dioxide 18 mmol/L (23-31); Chloride 93 mmol/L (98-107); Estimated GFR-MDRD 35; Glucose 225 mg/dL (83-110); Potassium 4.5 mmol/L (3.5-5.1); Protein, Total 6.7 g/dL (5.8-8.1); Sodium 122 mmol/L (136-145)
[2018-08-24 01:56] LABS: Actual Bicarbonate (HCO3a) 22.6 mEq/L (22-28); Analyzer IN Cardio ER; Base Excess (BEa) -1.1 mEq/L (-2.0 to +3.0); CO2 Tension 34.6 mmHg (35.0-45.0); Calcium, Ionized 1.07 mmol/L (1.12-1.30); Carboxyhemoglobin (COHb) 0.9 gm% (0.0-3.0); Hemoglobin (Hb) 12.1 g/dL (14.0-18.0); O2 Tension (PaO2) 68.4 mmHg (> 60.0); Potassium - ABG Lab 3.99 mmol/L (3.70-5.30); pH, Arterial 7.43 (7.35-7.45)
[2018-08-24] MEDS ORDERED: Aspirin Chewable 81 MG TAB ONE (02:00)
[2018-08-24 02:03] LABS: Puncture Site LRA
[2018-08-24 02:07] LABS: CKMB 1.6 ng/mL (0-6.6)
[2018-08-24 02:31] LABS: Bilirubin Negative (Negative); Blood, Urine Large (Negative); Clarity CLOUDY (Clear); Glucose, Urine (Dipstick) 100 mg/dL (Negative); Leukocyte Large (Negative); Nitrite Positive (Negative); Protein, Urine (Dipstick) Trace mg/dL (Neg-Trace); Specific Gravity, Urine 1.018 (1.002-1.036); Urobilinogen 0.2 mg/dL (0.2-1.0)
[2018-08-24 02:35] LABS: Bacteria/HPF 4+ HPF (None Seen); Pathc Cast-AUWi Flag 2.44 (0-2.49); Squamous Epithelial None Seen HPF (0-3); Yeast-AUWi Flag 154.3 (0-25.0)
[2018-08-24 02:44] LABS: Hyaline Casts/LPF 7-10 HYALINE CAST LPF (0-3 Hyaline); Yeast-All Forms None Seen HPF (None Seen)
[2018-08-24] MEDS ORDERED: Morphine 4 MG/ML VIAL ONE (03:42)
[2018-08-24 04:27] LABS: Base Excess-Venous -2.4 mmol/L (-2.0 to 3.0); Bicarbonate (HCO3v) 20.8 mmol/L (22.0-28.0); CO2 Tension (PvCO2) 29.9 mmHg (40.0-50.0); Calcium, Ionized 1.03 mmol/L (See Comments:); Chloride 91 mmol/L (98-107); Hemoglobin - Calc 11.1 g/dL (14.0-18.0); O2 Tension (PvO2) 63.2 mmHg (35.0-45.0); Potassium 3.9 mmol/L (3.5-5.1); Sodium 123 mmol/L (138-145); T. Carbon Dioxide 21.7 mmol/L (22.0-28.0); pH (Venous) 7.449 (7.320-7.430); vO2 Saturation-calc 93.2 % (60.0-85.0)
[2018-08-24 04:39] LABS: Critical Call Chem Troponin I RESULT DECREASING; Troponin I 1.781 ng/mL (< 0.028)
[2018-08-24 05:18] VITALS: BMI 33.7
[2018-08-24] MEDS: cefTRIAXone\\ROCEPHIN 1 GM in Sodium Chloride 0.9% 100 ML IVPB SCH (05:39)
[2018-08-24 08:17] LABS: Troponin I 1.477 ng/mL (< 0.028)
--- NOTE | 2018-08-24 08:18 | RAD ---
CHEST 1 VIEW: Date: 08/24/18 INDICATION: History of cardiac ablation, with chest pain and shortness of breath. COMPARISON: Exam is compared to prior dated 08/09/17. FINDINGS: Cardiomegaly persists. There is pulmonary vascular congestion and small bilateral pleural effusions, right greater than left. There is subsegmental atelectasis and scarring within the right lower lobe. No pneumothorax is evident. IMPRESSION: Cardiomegaly with mild pulmonary vascular congestion and small bilateral pleural effusion suggests mi ld CHF. Continued follow-up is recommended. POS: [facility]
[2018-08-24] MEDS: Tamsulosin HCl 0.4 MG CAP PO SCH (08:31)
[2018-08-24] MEDS ORDERED: Furosemide 40 MG TAB PO PRN (08:38)
[2018-08-24] MEDS ORDERED: Potassium Chloride 20 MEQ TAB PO PRN (08:38)
[2018-08-24] MEDS ORDERED: Acetaminophen 325 MG TAB PO PRN (08:40)
[2018-08-24] MEDS ORDERED: Non-Formulary Item 1 EACH (Amlodipine Besylate [Amlodipine Besylate] 2.5 MG) PO SCH (09:00)
[2018-08-24] MEDS ORDERED: Rivaroxaban 10 MG TAB PO SCH (09:00)
[2018-08-24 09:48] LABS: #Eosinphils 0.1 thou/uL (0.0-0.7); #Lymphocytes 0.7 thou/uL (1.20-3.40); #Monocytes 0.8 thou/uL (0.11-0.59); #Neutrophils 9.2 thou/uL (1.40-6.50); %Basophils 0.1 % (0.0-1.0); %Lymphocytes 6.1 % (21.0-51.0); %Monocytes 7.5 % (0.0-10.0); %Neutrophils 85.4 % (42.0-75.0); Hemoglobin 11.1 g/dL (14.0-18.0); Mean Corpuscular Hemoglobin 27.6 pg (27.0-31.0); Mean Corpuscular Volume 86.4 fL (78.0-98.0); Mean Platelet Volume 9.5 fL (7.4-10.4); Platelet Count 139 thou/uL (130-400); RBC Distribution Width 12.7 % (11.5-14.5); Red Blood Cell (RBC) Count 4.02 mill/uL (4.70-6.10); White Blood Cell (WBC) Count 10.8 thou/uL (4.8-10.8)
--- NOTE | 2018-08-24 09:49 | ULT ---
PRELIMINARY REPORT/[facility]/EMERGENTY AFTER-HOURS PROCEDURE Addendum created by Chao Blakely MD on 08/24/2018 5:14 AM Central Time ([place] & [place]) THIS REPORT CONTAINS FINDINGS THAT MAY BE CRITICAL TO PATIENT CARE. The findings were verbally commun icated via telephone conference with SHIMON NGUYEN at 5:14 AM CDT on 08/24/2018. The findings were ac knowledged and understood. Initial Report created on 08/24/2018 3:40 AM Central Time ([place] & [place]) US Abdomen Limited, Right Upper Quadrant EXAM DATE/TIME: 08/24/2018 2:16 AM CLINICAL HISTORY: 83 years old, male; Abnormal findings; Abnormal lab test; Elevated liver enzymes; Prior surgery; Surgery date: 6+ months; Surgery type: Partial lung removal; Patient HX: Elevated lft's, fever; Addit ional info: HX; Lung CA TECHNIQUE: Imaging protocol: Real-time ultrasound of the abdomen with image documentation. Examination was focus ed on the right upper quadrant. COMPARISON: No relevant prior studies available. FINDINGS: Liver: Mild hepatomegaly. Mild perihepatic fluid. No mass. Gallbladder: Prior cholecystectomy. Common bile duct: Unremarkable. Pancreas: Limited visualization due to bowel gas. Large mass in the region of the pancreatic tail luma suring up to 5.9 cm. Right kidney: Somewhat echogenic right kidney. No mass. No hydronephrosis. IMPRESSION: Large mass in the region of the pancreatic tail concerning for malignancy/metastasis. Recommend furth er evaluation with CT. Mild hepatomegaly. Mild perihepatic fluid. Somewhat echogenic right kidney. Correlate for medical renal disease. Thank you for allowing us to participate in the care of your patient. Dictated and Authenticated by: Chao Blakely MD 08/24/2018 3:40 AM Central Time ([place] & [place]) FINAL REPORT EMERGENCY AFTER HOURS RIGHT UPPER QUADRANT ULTRASOUND: Date: 08/24/18 FINDINGS/IMPRESSION: I agree with the preliminary report provided by [facility]. The patient's pancreatic mass is known. Pancreatic lesion measures 4.6 x 5.0 x 5.9 cm. Right kidney m easures 11.5 cm. Gallbladder is surgically absent. Liver is enlarged with a small amount of ascites. POS: [facility]
[2018-08-24] MEDS: Amlodipine 5 MG TAB PO SCH (09:55)
[2018-08-24] MEDS: Loratadine 10 MG TAB PO SCH (09:56)
[2018-08-24] MEDS: Carvedilol 6.25 MG TAB PO SCH ×2 (09:56→20:40)
[2018-08-24] MEDS: Aspirin Chewable 81 MG TAB PO SCH (09:56)
[2018-08-24] MEDS: Alogliptin 25 MG TAB PO SCH (09:56)
--- NOTE | 2018-08-24 10:36 | CON ---
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 He recently underwent a cardiac ablation therapy a few days ago. He then presented later on for complains of chest pains and slight shortness of breath. We are being consulted for his chronic renal failure/hyponatremia. Please note, he was also noted to be hyponatremic. This morning, he is feeling better. He is relatively asymptomatic. He denies any chest pain or shortness of breath at the present time. REVIEW OF SYSTEMS: Positive for mild shortness of breath and intermittent chest pain. No syncopal episode. No productive cough. No fever or chills. No diarrhea. No constipation. No hematochezia. No melena. No hematemesis. Occasional joint pains. No confusion. No fever or chills. No leg swelling. PAST MEDICAL HISTORY: Includes; 1. History of lung cancer, currently in remission. 2. Chronic atrial fibrillation. 3. Hyperlipidemia. 4. Status post pneumonia. 5. Type 2 diabetes mellitus. 6. History of SIADH. 7. History of ? pancreatic mass lungs - stable. 8. 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 9. Longstanding hypertension. PAST SURGICAL HISTORY: 1. Status post right lower lobectomy with mediastinal lymph node dissection. 2. Status post left knee surgery. 3. Status post cholecystectomy. 4. Recently status post cardiac ablation. SOCIAL HISTORY: The patient is retired the [employer]. He has several siblings. Smoked only for 4 years, less than half a pack a day. Alcohol rarely. Education, college graduate. No IV drug abuse. No blood transfusion. FAMILY HISTORY: No family history of ESRD. ALLERGIES: NONE. TRAUMA: None. IMMUNIZATION: Up-to-date. HOSPITALIZATIONS: Please see past medical history. PHYSICAL EXAMINATION: VITAL SIGNS: Blood pressure is noted at 116/74, heart rate 86, respiratory rate 22, and pulse ox 100%. GENERAL: Noted to be awake, alert, supine, comfortable, not in distress. SKIN: Adequate turgor. HEENT: He has pinkish conjunctivae. Anicteric sclerae. NECK: No neck mass. No carotid bruits. No JVD. CHEST: No deformities. LUNGS: Clear breath sounds. No wheezing. No crackles. HEART: Normal sinus rhythm. No murmurs. No gallops. No rubs. ABDOMEN: Globular, soft, and nontender. No masses. EXTREMITIES: No edema. No deformities. NEUROLOGIC: Awake and oriented to 3 spheres. Moving all extremities. No tremors. No asterixis. No ataxia. MEDICATIONS: Medications of August 24, 2018; 1. Lipitor 10 mg tablet at bedtime. 2. Coreg 6.25 mg p.o. b.i.d. 3. Aspirin 81 mg daily. 4. Ceftriaxone 1 g every 24 hours. 5. Furosemide 40 mg daily - p.r.n. 6. Levaquin 150 mg q.24 hours. 7. Claritin 10 mg daily. 8. Niacin 750 mg daily. 9. Ramipril on hold. 10. Protonix 40 one daily. 11. K-Dur 20 mEq daily p.r.n. 12. Xarelto 15 mg daily. 13. Januvia 100 mg daily. 14. Carafate 1 g p.o. q.i.d. 15. Flomax 0.4 mg daily. LABORATORY DATA: Laboratories of August 24, 2018, white count 13.8 and hemoglobin 11.8. Sodium 123, potassium 3.9, and chloride 91. On August 24, 2018, at 12 a.m., serum sodium is 122. On August 15, 2018, serum sodium 130. ASSESSMENT AND PLAN: 1. Chronic renal failure - creatinine is slightly higher at 1.85. Previously, he runs about 1.6. This could be a hemodynamically-mediated renal dysfunction secondary to a possible congestive heart failure. Cardiology has been consulted. 2. Hyponatremia - the patient has history of syndrome of inappropriate antidiuretic hormone secretion. Free water restriction for the moment. We will hold off tolvaptan for the moment. 3. Chest pain. The patient is being ruled out for myocardial infarction. Please note that his most recent BUN was 25 with a creatinine 1.85. Potassium is 4.5. Troponin I is noted to be at 1.477. Cardiology has been consulted. For the moment, agree with current management. There is no indication for any dialytic intervention. Job ID: [id number]
[2018-08-24] MEDS: Rivaroxaban 15 MG TAB PO SCH (10:51)
[2018-08-24] MEDS: Sucralfate 1 GM TAB PO SCH ×4 (10:52→20:52)
--- NOTE | 2018-08-24 11:34 | CON ---
DATE OF CONSULTATION: HISTORY OF PRESENT ILLNESS: An 83-year-old gentleman, who was just recently discharged from the hospital for status post ablation, when at home had shortness of breath without any associated chest pain. He said he was breathing rapidly. Denies any coughing. Denies any fever or chills. He came to the ER where a CT angio was done, which did not show any pulmonary emboli. The previous described pancreatic mass was seen. This morning, he said he is feeling better. No chest pain. No shortness breath. It resolved. PAST MEDICAL HISTORY: Outlined, pertinent for bronchogenic carcinoma, status post lobectomy, history of cardiac arrhythmias, history of renal failure, history of high cholesterol, history of hyperlipidemia, hypertension. PAST SURGICAL HISTORY: Includes cholecystectomy, right lower lobe lobectomy, knee surgery, recent ablation. SOCIAL HISTORY: No alcohol and tobacco abuse. HOME MEDICATIONS: Includes: 1. Januvia 100. 2. Carafate. 3. Xarelto 15. 4. Potassium 20. 5. Protonix 40. 6. Lasix 40. 7. Coreg 6.25 twice daily. 8. Lipitor 10. 9. Aspirin. 10. Amlodipine 2.5. 11. He is now started on ceftriaxone and all home medications. SOCIAL HISTORY: Unremarkable. FAMILY HISTORY: Unremarkable. REVIEW OF SYSTEMS: A 10-point negative. PHYSICAL EXAMINATION: On examination this morning, he is awake, alert, responsive, in no distress, sats are 100% on 2 L, pulse 85, normal sinus rhythm, blood pressure , respirations 18. CHEST: Decreased breath sounds, no wheezing. CARDIAC: Normal S1, S2. No gallops. LABORATORY DATA: He had a blood gas done, pO2 was 63, pCO2 29, pH 7.44, this is apparently venous blood. His sodium was 119. It is 123 this morning. BNP is 238. His urine shows wbcs 50. IMAGING: His chest x-ray did not show any new infiltrates. The right-sided thoracotomy scar appears relatively stable. IMPRESSION: 1. Dyspnea, etiology unclear, probably sepsis syndrome, abdominal x-ray, right pleural thickening, status post right lower lobectomy. 2. Recent supraventricular ablation. 3. Diabetes. 4. Azotemia. 5. Hyponatremia, recurrent. PLAN: 1. Continue broad-spectrum antibiotics for presumed UTI. 2. Hold Lasix. 3. Notify Nephrology. 4. We will follow in the ICU. Consultation note, 70 minutes, 50% direct patient care. Job ID: [id number]
--- NOTE | 2018-08-24 11:34 | HP ---
CHIEF COMPLAINT: Shortness of breath and weakness. HISTORY OF PRESENT ILLNESS: This patient is an 83-year-old male, who presented to the emergency department last evening. The patient was admitted here on 08/22/2018, two days ago for an ablation procedure for atrial fibrillation. At that time, the patient had a Briscoe catheter. He states when it was removed, he had some dysuria that has improved with each void, but not completely back to normal. Other than that, the patient reported that he did not sleep well the night after the ablation and only got a couple hours of sleep, but otherwise felt well and was discharged to home on the . In the evening, the patient continued to feel well, went to bed around 9:30, but at 11 o'clock, he woke up abruptly, breathing rapidly and feeling very short of breath. He subsequently got up out of bed, went and got into a chair, but the symptoms did not resolve. He also reported some generalized edema, which is new for him as well. He failed to have any improvement with his breathing, so he subsequently presented to the emergency department. He also reports that he has had some intermittent subjective fevers overnight. He denies any chest pain or cough. He does say that he has had some history of esophageal discomfort, for which he takes medications, but not presently. REVIEW OF SYSTEMS: All systems reviewed as noted above. The patient had one night of difficulty sleeping and generalized edema. All other systems were reviewed and all pertinent positives and negatives noted in the history of present illness. PAST MEDICAL HISTORY: Notable for paroxysmal atrial fibrillation; diabetes mellitus; hypertension; hyperlipidemia; hyponatremia; history of lung cancer; and a history of a pancreatic mass, which is chronic and in discussion with Dr. Blue, has been followed over a period of time as an outpatient. PAST SURGICAL HISTORY: Lobectomy, left total knee arthroplasty, cholecystectomy, appendectomy, atrial fibrillation ablation on 08/22, and cataractectomy with extraocular lens implants. FAMILY HISTORY: Brother with coronary artery bypass in his 60s. Mother had a history of cancer. SOCIAL HISTORY: Nonsmoker, nondrinker, nondrug user. He is full code. His surrogate decision maker would be his brother and [id number] as well as a friend, who are listed in the computer. ALLERGIES: NONE. CURRENT MEDICATIONS: 1. Potassium 20 mEq daily. 2. Lipitor 10 mg daily. 3. Aspirin 81 mg daily. 4. Amlodipine 2.5 mg daily. 5. Protonix 40 mg daily. 6. Tresiba 25 units subcu at bedtime. 7. TriCor 145 mg one p.o. daily. 8. Carvedilol 6.25 b.i.d. 9. Loratadine 10 mg daily. 10. Carafate 1 g q.i.d. 11. Xarelto 15 mg daily. 12. Lasix 40 mg daily. 13. Januvia 100 mg daily. PHYSICAL EXAMINATION: VITAL SIGNS: Pulse 98, respirations 16 to 30, and O2 sat 100% on nasal cannula. GENERAL APPEARANCE: Age-appropriate male, in no distress. He is currently awake, alert, oriented, pleasant, and cooperative. He is not tachypneic and in no distress. HEENT: PERRL. He has obvious lens implants. No OP lesions. NECK: Supple and symmetric. No lymphadenopathy, JVD, or carotid bruits. HEART: Regular rate and rhythm without murmurs, gallops, or rubs. LUNGS: Clear to auscultation bilaterally with no wheezes or rales. ABDOMEN: Soft, nontender, and nondistended. Positive bowel sounds. No masses. No organomegaly. EXTREMITIES: Have trace edema in both upper and lower extremities, mostly in the hands and feet and ankle areas. NEUROLOGIC: The patient is intact. There are no evidence of focal deficits. PSYCH: Normal affect and behavior. LABORATORY DATA: White count 13.8, hemoglobin 11.8, and platelets 150. ABG, pH of 7.43, pCO2 is 35, pO2 is 68.4. Sodium 122, potassium 4.5, chloride 93, CO2 is 18, BUN 25, creatinine is 1.85, and glucose 225. Lactic acid 1.2. Calcium 8.7. Total bili 2.4, AST is 50, and ALT is 30. Troponin initially is 2.009. BNP 239. Urinalysis shows large blood, positive nitrites, large leukocyte esterase, greater than 50 white cells, 11 to 20 red cells, and 4+ bacteria. IMAGING DATA: Flu screen is negative. Chest x-ray shows cardiomegaly with mild pulmonary vascular congestion. Small bilateral pleural effusions suggestive of mild CHF. Abdominal ultrasound, no report as of yet, but apparently reveals the pancreatic tail mass that was known. IMPRESSION AND PLAN: Acute hypoxic respiratory failure with hypoxia. It appears as the patient may have a little bit of volume overload. I will have to pick and shovel worker on this later. ADDENDUM: IMPRESSION AND PLAN: 1. Acute hypoxic respiratory failure. The patient presented with some shortness of breath and hypoxemia may be related to infection or maybe some volume overload related to some pulmonary edema. He has regular dose of Lasix and he is feeling okay with 2 L of oxygen. At this point, we will repeated echo, not be overly aggressive with the diuresis on Pulmonology following. 2. Urinary tract infection with white count of 13.8, given Rocephin. We will follow up on blood and urine cultures. 3. Elevated troponins secondary to recent procedure expected. 4. Chronic kidney disease, stage 3B, stable. 5. Pancreatic mass. This was discussed with Dr. Blue. He indicates that he and Dr. Nieves to follow this over a long period of time. The patient was not interested in pursuing any aggressive treatment. Therefore, they have been continually following this with imaging. It has been almost a year since his last imaging. Therefore, we will go ahead and repeat a CT with oral contrast only given his renal function. 6. History of atrial fibrillation, status post ablation. Continue with the Xarelto. 7. Hyperlipidemia. Continue Lipitor and fenofibrate. 8. History of hypertension. Continue amlodipine. 9. History of reflux. Continue pantoprazole and Carafate. Job ID: [id number]
[2018-08-24] MEDS: Fenofibrate Nanocrystallized 145 MG TAB PO SCH (12:01)
[2018-08-24] MEDS: Atorvastatin Calcium 10 MG TAB PO SCH (12:02)
--- NOTE | 2018-08-24 13:01 | CT ---
CT ABDOMEN AND PELVIS WITHOUT IV CONTRAST: INDICATIONS: History of pancreatic mass. COMPARISON: Recent right upper quadrant ultrasound dated 08/24/2018 CT abdomen and pelvis dated 07/02/2015. Prior CT dated 01/01/2015. FINDINGS: There are bilateral pleural effusions with bibasilar atelectasis. The hypodense pancreatic mass has intervally grown since the comparison examination, now measuring 6. 0 x 4.3 cm, with dilatation of the upstream pancreatic duct within the tail. The gallbladder is surgically absent. The left renal cyst is stable. There is mild anasarca. There is mild ascites. There is gas present within the bladder. There is a moderate amount of retained s tool within the colon. The small bowel is of normal caliber. No pathologically enlarged lymph nodes are grossly evident. No acute osseous abnormality is evident. There is scattered degenerative and osteoarthritic change. IMPRESSION: 1. Slowly enlarging pancreatic body mass, measuring 6 x 4.3 cm, where on a prior CT examination from 2015 it measured 5.2 x 3.7 cm. 2. Stable left renal cyst. 3. Bilateral pleural effusions, mild ascites, and anasarca. Recommend correlation for congestive he art failure or volume overload. 4. Moderate amount of retained stool within the colon. 5. Gas within the bladder may be related to recent instrumentation. Recommend correlation. POS: CARINE
--- NOTE | 2018-08-24 16:08 | PDOC.CTH ---
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 He was brought to [facility] for an elective outpatient ablation therapy. He received a total of 30 minutes of RF energy delivered and underwent successful cavotricuspid isthmus ablation in addition to successful pulmonary venous isolation. He has been stable since the end of the procedure. He has not had any early recurrence of atrial arrhythmias and maintained sinus rhythm with heart rate slightly elevated in the 90s. Yesterday post ablation he was breathing easily but did have some low urine output since his Briscoe was removed. Bladder scans did not reveal any urinary retention issues, with PVR <100mL Father Ana came back to the hospital reporting shortness of breath and some continued chest wall pain which is typical post ablation, provoked by deep inspiration that responded yesterday with complete resolution with single dose of IV Toradol. - Objective Vital Signs Temp Pulse Resp BP BP Pulse Ox 08/24/18 12:00 98.2 F 08/24/18 09:55 91 108/77 08/24/18 08:00 98 F 08/24/18 07:39 100 08/24/18 07:00 98 F 08/24/18 06:00 98.1 F 08/24/18 05:15 98 08/24/18 05:03 98.1 F 91 30 H 127/66 99 Admit Weight 3.968 oz Weight 248 lb 14.43 oz 08/23/18 08/24/18 08/25/18 06:59 06:59 06:59 Intake Total 120 1010 Output Total 780 Balance 120 230 - Physical Examination General/Neuro: alert & oriented x3, NAD Neck: carotid US brisk, no JVD present Lungs: unlabored respirations Heart: PMI normal, RRR Abdomen: NT/ND, soft Other PE findings: bilat groin sites stable - Telemetry Telemetry Rhythm: Sinus rhythm, trigeminy - Labs Result Diagrams: 08/24/18 09:39 08/24/18 00:57 Troponin/CKMB CK-MB (CK-2) 1.6 ng/mL (0-6.6) 08/24/18 00:57 Troponin I 1.477 ng/mL (< 0.028) H* 08/24/18 07:32 - Assessment/Plan 1. Persistent atrial fibrillation - s/p PVAI (and CTI ablation for typical atrial flutter) on 08/22/18 2. Shortness of breath -likely fluid overload 3. Oral anticoagulation 4. Hyponatremia 5. A/C kidney disease 6. UTI - GN rods, as per primary team Echocardiogram did not reveal any significant pericardia effusion or tamponade. Some MR and some aortic stenosis is seen during the bedside exam, measurements are pending. Remains in sinus rhythm post ablation. Please continue oral anticoagulation. May offer PRN toradol for post ablation chest wall discomfort. Otherwise no post ablation complications are seen thus far.
[2018-08-24] MEDS ORDERED: Dextrose 50% Abboject 50 ML SYRINGE SLOW IVP PRN (17:59)
[2018-08-24] MEDS ORDERED: Dextrose 5% in Water 1,000 ML IV PRN (17:59)
[2018-08-24] MEDS: Insulin Glargine 25 UNITS in Pre-Filled Syringe 1 EACH SC SCH (20:47)
[2018-08-24] MEDS ORDERED: Calcium Carbonate 500 MG ChewTAB PO SCH (21:00)
[2018-08-24] MEDS ORDERED: INSULIN DEGLUDEC 25 UNIT SQ SCH (21:00)
[2018-08-24] MEDS ORDERED: Calcium Carbonate 500 MG ChewTAB PO PRN (22:30)
[2018-08-24] MEDS: Melatonin 3 MG TAB PO PRN (22:55)
[2018-08-25] MEDS: cefTRIAXone\\ROCEPHIN 1 GM in Sodium Chloride 0.9% 100 ML IVPB SCH (05:09)
[2018-08-25 05:55] LABS: Anion Gap 10 mmol/L (10-20); BUN (Urea Nitrogen) 20 mg/dL (8.4-25.7); Calc. Creatinine Clearance 66 mL/min (70-130); Calcium 8.8 mg/dL (7.8-10.44); Carbon Dioxide 24 mmol/L (23-31); Chloride 90 mmol/L (98-107); Estimated GFR-MDRD 50; Glucose 158 mg/dL (83-110); Potassium 4.4 mmol/L (3.5-5.1); Sodium 120 mmol/L (136-145)
--- NOTE | 2018-08-25 08:12 | PRG ---
DATE OF SERVICE: 08/25/2018 SUBJECTIVE: Ana is an 83-year-old gentleman. This morning, he is doing better, still weak. OBJECTIVE: VITAL SIGNS: His saturations are 97%, pulse 80, blood pressure 120/80, respiratory rate 18. GENERAL: Denies difficulty breathing. No longer chills or sweats. CHEST: Decreased breath sounds without any wheezing. CARDIAC: Normal S1 and S2. No gallops or masses. Urine is growing Klebsiella sensitive to the present antibiotic. His creatinine is 1.35, sodium 120. White count 10,000. Echocardiogram shows slightly depressed LV function. Examination of chest, decreased breath sounds, no wheezing. Cardiac, normal S1 and S2. Abdomen soft without masses. His CT pancreas shows his pancreatic mass that measures 6 x 4.3 cm. Prior to that, it was 5.2 x 3.3 cm, remains slightly increased for unknown significance. Small pleural effusion is seen. IMPRESSION: 1. Urosepsis. 2. Hyponatremia, recent ablation. 3. Small pleural effusion. 4. Diabetes. 5. Persistent atrial fibrillation, status post ablation. PLAN: Continue antibiotics, probably deescalate, he is started on Xarelto by the EP people. Continue PT supportive care. We will follow. Job ID: [id number]
[2018-08-25] MEDS: Loratadine 10 MG TAB PO SCH (08:27)
[2018-08-25] MEDS: Carvedilol 6.25 MG TAB PO SCH ×2 (08:28→21:07)
[2018-08-25] MEDS: Amlodipine 5 MG TAB PO SCH (08:29)
[2018-08-25] MEDS: Tamsulosin HCl 0.4 MG CAP PO SCH (08:29)
[2018-08-25] MEDS: Alogliptin 25 MG TAB PO SCH (08:30)
[2018-08-25] MEDS: Aspirin Chewable 81 MG TAB PO SCH (08:30)
--- NOTE | 2018-08-25 09:37 | PRG ---
DATE OF SERVICE: 08/25/2018 SUBJECTIVE: Fr. Perez is an 83-year-old white male, who was seen by the Renal Service for his acute kidney injury and hyponatremia. I felt that the slightly higher creatinine may have been a reflection of a hemodynamically-mediated renal dysfunction. Repeat creatinine level is now showing it is much improved. However, the patient is noted to be hyponatremic at serum sodium 120. He is currently on free water restriction. This patient has a previous history of SIADH. He recently underwent a cardiac ablation. This was successful. No other complaints today. He has also been diagnosed with UTI and Levaquin has been started. OBJECTIVE: VITAL SIGNS: Blood pressure 138/79, heart rate 86, and respiratory rate 21. GENERAL: He is awake, alert, comfortable, not in distress. SKIN: Adequate turgor. HEENT: He has a pinkish conjunctivae. Anicteric sclerae. NECK: No neck mass. No carotid bruits. No JVD. CHEST: No deformities. LUNGS: Clear breath sounds. No wheezing. No crackles. HEART: Normal sinus rhythm. No murmurs. No gallops. No rubs. ABDOMEN: Globular, soft, and nontender. No masses. EXTREMITIES: No edema. No deformities. MEDICATIONS: Medications of August 25, 2018, was reviewed. LABORATORY DATA: Laboratories of August 24, 2018, shows a sodium of 120, potassium 4.4, chloride 90, carbon dioxide 24, BUN 20, creatinine 1.35, glucose 158, and calcium 8.8. ASSESSMENT AND PLAN: 1. Acute kidney injury - hemodynamically-mediated renal dysfunction, improved creatinine from 1.8 to most recent value of 1.3. Continue current management. No indication for any dialytic intervention. 2. Urinary tract infection, currently on Levaquin. We will adjust Levaquin to 500 mg IV q.24 hours starting tomorrow. 3. Hyponatremia - the patient has history of syndrome of inappropriate antidiuretic hormone secretion. We will start tolvaptan at 15 mg tablet daily. Recheck liver function test. We will also do a basic metabolic panel and CBC in a.m. As per recommendation by Cardiology - chrissie gallegos Job ID: [id number] [facility] SYSTEMYamileth
[2018-08-25] MEDS: Rivaroxaban 15 MG TAB PO SCH (10:06)
[2018-08-25] MEDS: Sucralfate 1 GM TAB PO SCH ×4 (10:07→21:08)
[2018-08-25] MEDS: Atorvastatin Calcium 10 MG TAB PO SCH (10:38)
[2018-08-25] MEDS: Fenofibrate Nanocrystallized 145 MG TAB PO SCH (10:38)
[2018-08-25] MEDS: Tolvaptan 15 MG TAB PO SCH (11:27)
[2018-08-25] MEDS ORDERED: Furosemide 40 MG/4 ML VIAL SLOW IVP SCH (11:30)
[2018-08-25] MEDS: HumaLOG 300 UNITS/3 ML VIAL SC PRN ×2 (11:48→17:54)
--- NOTE | 2018-08-25 15:52 | PDOC.CTH ---
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 He was brought to for an elective outpatient ablation therapy. He received a total of 30 minutes of RF energy delivered and underwent successful cavotricuspid isthmus ablation in addition to successful pulmonary venous isolation. He has been stable since the end of the procedure. He has not had any early recurrence of atrial arrhythmias and maintained sinus rhythm with heart rate slightly elevated in the 90s. Yesterday post ablation he was breathing easily but did have some low urine output since his Briscoe was removed. Bladder scans did not reveal any urinary retention issues, with PVR <100mL Father Ana came back to the hospital reporting shortness of breath. No further chest pain. He reports he is having less burning with urination as well. - Objective Vital Signs Temp Pulse Pulse Pulse BP BP BP 08/25/18 13:00 98.6 F 08/25/18 09:15 93 92 132/69 143/73 H 08/25/18 08:29 93 138/79 08/25/18 08:28 132/69 08/25/18 08:00 99 F 08/25/18 04:00 98.7 F Pulse Ox Pulse Ox Pulse Ox 08/25/18 13:00 08/25/18 09:15 99 97 08/25/18 08:29 08/25/18 08:28 08/25/18 08:00 97 08/25/18 04:00 Admit Weight 3.968 oz Weight 248 lb 14.43 oz 08/24/18 08/25/18 08/26/18 06:59 06:59 06:59 Intake Total 120 1830 580 Output Total 1300 740 Balance 120 530 -160 - Physical Examination General/Neuro: alert & oriented x3, NAD Neck: carotid US brisk Lungs: CTA, unlabored respirations Heart: PMI normal, RRR Abdomen: NT/ND, soft - Telemetry Telemetry Rhythm: SR - Labs Result Diagrams: 08/24/18 09:39 08/25/18 04:57 Troponin/CKMB CK-MB (CK-2) 1.6 ng/mL (0-6.6) 08/24/18 00:57 Troponin I 1.477 ng/mL (< 0.028) H* 08/24/18 07:32 - Assessment/Plan 1. Persistent atrial fibrillation, currently in sinus rhythm - s/p PVAI (and CTI ablation for typical atrial flutter) on 08/22/18 2. Shortness of breath -likely fluid overload -improving without diuresing. 3. Oral anticoagulation -Xarelto 4. Hyponatremia 5. A/C kidney disease 6. UTI - GN rods, as per primary team Echocardiogram did not reveal any significant pericardia effusion or tamponade. Some MR and some aortic stenosis is seen during the bedside exam, measurements are pending. Remains in sinus rhythm post ablation. Please continue oral anticoagulation. May offer PRN toradol for post ablation chest wall discomfort. Otherwise no post ablation complications are seen thus far. Rhythm remains stable overnight. No new EP issues at time time. Renal managing low Na+.
--- NOTE | 2018-08-25 18:38 | PRG ---
DATE OF SERVICE: 08/25/2018 SUBJECTIVE: The patient is feeling unbetter overall, is not perfect, has had better days, but generally better. No specific complaints. Still feels a little bit puffy. He stated that his abdomen felt very distended yesterday, but it is less so today. He has been up with physical therapy and walking. OBJECTIVE: VITAL SIGNS: Temperature 98.5, pulse 88, BP 115/58, respirations 21, O2 saturation 98% on room air. GENERAL APPEARANCE: Age-appropriate male, in no distress. Awake, alert, oriented, pleasant, and cooperative. HEART: Regular rate and rhythm. No significant murmurs, gallops, or rubs. LUNGS: Clear to auscultation bilaterally with good chest wall expansion and air exchange. ABDOMEN: Slightly distended and hypertympanitic. No tenderness. No masses. EXTREMITIES: Mild diffuse generalized edema. LABORATORY DATA: Sodium 120, potassium 4.3, chloride 90, CO2 is 24, BUN 10, creatinine 1.35, glucose 158. Urine cultures growing Klebsiella pneumoniae which is sensitive to the Rocephin. IMPRESSION AND PLAN: 1. Shortness of breath, appears to be resolved. Could be multifactorial, possibly representing a little volume overload, although he is significantly improved at this point, did not require diuresis. 2. Urinary tract infection growing Klebsiella. Continue to monitor blood cultures. If negative in 48 hours, could consider possible conversion to an oral agent. 3. Acute kidney injury. Nephrology following. Suspected hemodynamically mediated, is improving presently and creatinine is down to 1.3. 4. Hyponatremia, chronic SIADH. He was given 15 mg of tolvaptan daily by Nephrology. 5. Diabetes mellitus, adequate control. 6. Acute hypoxic respiratory failure, improved. Still using oxygen p.r.n. 7. Chronic kidney disease stage IIIB. 8. Pancreatic mass. Repeat imaging showed very subtle enlargement from 2016. 9. History of atrial fibrillation, on Xarelto. He is status post ablation on the . 10. Hyperlipidemia. Continue Lipitor and fenofibrate. 11. Hypertension. Continue amlodipine. 12. History of reflux. Continue pantoprazole and Carafate. Job ID: [id number]
[2018-08-25] MEDS: Insulin Glargine 25 UNITS in Pre-Filled Syringe 1 EACH SC SCH (21:07)
[2018-08-25] MEDS: Melatonin 3 MG TAB PO PRN (21:08)
[2018-08-26] MEDS: cefTRIAXone\\ROCEPHIN 1 GM in Sodium Chloride 0.9% 100 ML IVPB SCH (04:49)
[2018-08-26 05:45] LABS: Band 4 % (5-11); Hemoglobin 10.6 g/dL (14.0-18.0); Hypochromia SLIGHT = 6-15 cells (100X) (0-5/hpf); Lymphocytes 6 % (21-51); MDiff Complete? YES; Mean Corpuscular HGB CONC 32.3 g/dL (32.0-36.0); Mean Corpuscular Hemoglobin 27.6 pg (27.0-31.0); Mean Corpuscular Volume 85.6 fL (78.0-98.0); Monocytes 11 % (0-10); Neutrophil 79 % (42-75); Platelet Count 147 thou/uL (130-400); Platelet Morphology Comment Appears Adequate; RBC Distribution Width 12.5 % (11.5-14.5); Red Blood Cell (RBC) Count 3.84 mill/uL (4.70-6.10)
[2018-08-26 05:46] LABS: ALT (SGPT) 21 U/L (8-55); AST (SGOT) 17 U/L (5-34); Albumin 3.2 g/dL (3.4-4.8); Alkaline Phosphatase 40 U/L (40-150); Anion Gap 11 mmol/L (10-20); BUN (Urea Nitrogen) 20 mg/dL (8.4-25.7); Bilirubin, Total 1.1 mg/dL (0.2-1.2); Calc. Creatinine Clearance 64 mL/min (70-130); Calcium 8.8 mg/dL (7.8-10.44); Carbon Dioxide 25 mmol/L (23-31); Chloride 93 mmol/L (98-107); Estimated GFR-MDRD 48; Globulin 2.9 g/dL (2.4-3.5); Glucose 167 mg/dL (83-110); Potassium 3.9 mmol/L (3.5-5.1); Protein, Total 6.1 g/dL (5.8-8.1); Sodium 125 mmol/L (136-145)
[2018-08-26] MEDS: HumaLOG 300 UNITS/3 ML VIAL SC PRN ×4 (08:19→20:42)
[2018-08-26] MEDS: Sucralfate 1 GM TAB PO SCH ×4 (08:29→20:44)
[2018-08-26] MEDS: Alogliptin 25 MG TAB PO SCH (08:29)
[2018-08-26] MEDS: Loratadine 10 MG TAB PO SCH (08:30)
[2018-08-26] MEDS: Rivaroxaban 15 MG TAB PO SCH (08:30)
[2018-08-26] MEDS: Tolvaptan 15 MG TAB PO SCH (08:30)
[2018-08-26] MEDS: Amlodipine 5 MG TAB PO SCH (08:31)
[2018-08-26] MEDS: Atorvastatin Calcium 10 MG TAB PO SCH (08:31)
[2018-08-26] MEDS: Tamsulosin HCl 0.4 MG CAP PO SCH (08:32)
[2018-08-26] MEDS: Fenofibrate Nanocrystallized 145 MG TAB PO SCH (08:32)
[2018-08-26] MEDS: Aspirin Chewable 81 MG TAB PO SCH (08:32)
[2018-08-26] MEDS: Carvedilol 6.25 MG TAB PO SCH ×2 (08:33→20:43)
[2018-08-26] MEDS: Cefdinir 300 MG CAP PO SCH ×2 (08:54→20:43)
--- NOTE | 2018-08-26 09:05 | PRG ---
DATE OF SERVICE: 08/26/2018 SUBJECTIVE: This morning, he is awake, alert, and responsive. He is better. OBJECTIVE: VITAL SIGNS: Pulse 80, blood pressure 114/80, sats 100%, respiratory rate 18. CHEST: Decreased breath sounds. No wheezing. CARDIAC: Normal S1, S2. No gallop. ABDOMEN: No masses. ASSESSMENT: 1. Klebsiella urinary tract infection. 2. Hyponatremia, much improved. 3. Hypertension. 4. Supraventricular tachycardia. 5. Pancreatic mass. The patient at this stage did not workup for a pancreatic mass. We will repeat a PET-CT in outpatient basis. Switch over to oral antibiotics. Continue PT. Hopefully home within next few days. Job ID: [id number]
[2018-08-26] MEDS ORDERED: Zolpidem Tartrate 5 MG TAB PO PRN (09:15)
--- NOTE | 2018-08-26 09:22 | PDOC.PN ---
- Subjective Encounter Start Date: 08/26/18 (f/u DM) Encounter Start Time: 09:20 Subjective: Pt without complaints this morning. notes his blood sugars are a lot -: higher here than at home. Unable to sleep last night - even with -: melatonin - Objective Resuscitation Status - Order Detail: 08/24/18 08:40 Resuscitation Status Routine Resuscitation Status: FULL: Full Resuscitation Vital Signs & Weight: Vital Signs (12 hours) Temp Pulse BP 08/26/18 08:33 112/59 L 08/26/18 08:31 91 112/59 L 08/26/18 08:00 98.5 F 08/26/18 07:00 96 F L Weight Admit Weight 3.968 oz Weight 248 lb 14.43 oz Most Recent Monitor Data Heart Rate from ECG 81 NIBP 112/59 NIBP BP-Mean 76 Respiration from ECG 16 SpO2 95 I&O: 08/25/18 08/26/18 08/27/18 06:59 06:59 06:59 Intake Total 1830 1160 350 Output Total 1300 2895 240 Balance 530 -1735 110 Result Diagrams: 08/26/18 04:45 08/26/18 04:45 Additional Labs: Accuchecks 08/25/18 08/25/18 08/25/18 21:13 17:40 11:37 POC Glucose 226 H 187 H 248 H EKG Reviewed by me: Yes (sinus 80's with pvc) Phys Exam - Physical Examination Constitutional: NAD Respiratory: no wheezing, no rales, no rhonchi, clear to auscultation bilateral Cardiovascular: RRR, no significant murmur Gastrointestinal: soft, non-tender, no distention, positive bowel sounds Non pitting edema bilateral LE Neurological: non-focal, moves all 4 limbs Psychiatric: normal affect Skin: no rash Dx/Plan (1) Sepsis Code(s): A41.9 - SEPSIS, UNSPECIFIED ORGANISM Status: Acute (2) CKD (chronic kidney disease) Code(s): N18.9 - CHRONIC KIDNEY DISEASE, UNSPECIFIED Status: Chronic Qualifiers: Chronic kidney disease stage: stage 3 (moderate) Qualified Code(s): N18.3 - Chronic kidney disease, stage 3 (moderate) (3) Hyponatremia Code(s): E87.1 - HYPO-OSMOLALITY AND HYPONATREMIA Status: Chronic (4) UTI (urinary tract infection) Status: Acute Qualifiers: Urinary tract infection type: acute cystitis Hematuria presence: without hematuria Qualified Code(s): N30.00 - Acute cystitis without hematuria (5) Dyslipidemia Code(s): E78.5 - HYPERLIPIDEMIA, UNSPECIFIED Status: Chronic (6) Paroxysmal atrial fibrillation Code(s): I48.0 - PAROXYSMAL ATRIAL FIBRILLATION Status: Chronic (7) Diabetes mellitus type 2 in nonobese Code(s): E11.9 - TYPE 2 DIABETES MELLITUS WITHOUT COMPLICATIONS Status: Chronic (8) Hypertension Code(s): I10 - ESSENTIAL (PRIMARY) HYPERTENSION Status: Chronic - Plan * Pt sx improved * sepsis secondary to Klebsiella UTI possibly from campos catheter on 08/22 - changed to cefdinir - anticipate 7 days of abx * hyponatremia - started on vaptin and improved today * DM sub-optimally controlled - increase lantus to 28 units tonight * Insomnia secondary to hospital - d/c melatonin and start restoril. 15 mg is the lowest dose available, no interactions identified with his curernt meds * * dvt prophy - on full dose oral anticoagulant * di prophy - not indicated * code status full * * reviewed plan of care with patient, no questions or further needs at end of eval. Pt remains at high risk in current condition..
--- NOTE | 2018-08-26 09:56 | PQF ---
RITA IBRAHIM DENA [id number] CLINICAL DOCUMENTATION IMPROVEMENT CLARIFICATION FORM: ICD-10 Updated PLEASE DO AN ADDENDUM TO THE PROGRESS NOTE WITH ANY DOCUMENTATION UPDATES OR ADDITIONS AND CARRY THROUGH TO DC SUMMARY. THANK YOU. DATE: 08/26 ATTN: DR. CUBA RUIZ Please exercise your independent, professional judgment in responding to the clarification form. Clinical indicators are provided on the bottom of this form for your review. Please check appropriate box(es): [ xx ] Sepsis D/T Klebsiella UTI possibly recent donaldson catheter placement on [ ] Sepsis D/T Klebsiella UTI not R/T recent donaldson catheter placement on 08/22 [ ] Severe sepsis with acute organ dysfunction of: (Examples: respiratory failure, encephalopathy, acute kidney failure, other) [ ] Other diagnosis [ ] Unable to determine In addition, please specify: Present on Admission (POA): [ xx ] Yes [ ] No [ ] Unable to determine For continuity of documentation, please document condition throughout progress notes and discharge summary. Thank You. CLINICAL INDICATORS - SIGNS / SYMPTOMS / LABS ER PRESENTATION 08/24: SEPSIS ALERT RA SAT 89-93% > 2L NC 98% T: 100.6 RR: 24-32 HR: 90-104 ER PHYSICIAN FINAL DIAGNOSES: SEPSIS, UTI T: 101.6 (08/24, 1900 AFTER ADMISSION) H&P (RICKKLEN): PT ADMITTED HERE ON 08/22/18 FOR ABLATION PROCDURE FOR AFIB. AT THAT TIME, THE PT HAD A DONALDSON CATHETER PULMONOLOGY CONSULT (HART) 08/24: IMPRESSION: 1) DYSPNEA, ETIOLOGY UNCLEAR, PROBABLY SEPSIS SYNDROME... PULMONOLOGY PN (HART) 08/25: IMPRESSION: 1) UROSEPSIS RISKS: CURRENT KLEBSIELLA UTI W/ RECENT DONALDSON CATHETER ON 08/22 ACUTE RESPIRATORY FAILURE GUTIERREZ TREATMENT: CCU MONITORING (08/24 - PRESENT) ANTIBIOTICS (IV ROCEPHIN (08/24-PRESENT); LEVAQUIN (08/24-) THANK YOU! Jayashree (This form is maintained as a part of the permanent medical record) 2014 [employer]. All Rights Reserved Jayashree Tanner RN, BSN [email or web address] Office: [phone] [facility]ITAL[facility]amileth
--- NOTE | 2018-08-26 10:09 | PRG ---
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 Renal consultation was done due to the acute kidney injury on top of his chronic renal failure. He was also found to be hyponatremic. He has also been found to have a UTI, currently on IV antibiotics. He was also seen by Dr. Carrasquillo due to his recent cardiac ablation. He made a recommendation of giving this patient Lasix. He did receive a one-time dose of Lasix. This morning, he is feeling better. No new complaints. No chest pain or shortness of breath. OBJECTIVE: VITAL SIGNS: Blood pressure 112/59, heart rate 81, respiratory rate 16, pulse ox 95%. GENERAL: Awake, sitting comfortable, not in distress. SKIN: Adequate turgor. HEENT: He has pinkish conjunctivae. Anicteric sclerae. No neck mass. No carotid bruits. No JVD. CHEST: No deformities. LUNGS: Clear breath sounds. No wheezing. No crackles. HEART: Normal sinus rhythm. No murmur, gallops, or rubs. ABDOMEN: Globular, soft, nontender. No masses. EXTREMITIES: No edema. No deformities. MEDICATIONS: Medications of 08/26/2018 were reviewed. LABORATORY DATA: Laboratories of 08/26/2018 showed a white count of 8 and hemoglobin 10.6. Sodium 125, potassium 3.9, chloride 93, carbon dioxide 25, BUN 20, creatinine 1.4, glucose 167, and calcium 8.8. Albumin is 3.2. ASSESSMENT AND PLAN: 1. Acute kidney injury/chronic renal failure. Stable renal function. Creatinine 1.4, it is near baseline. GFR 48 mL/minute. Continue current management. No indication for any dialytic intervention. 2. Hyponatremia - the patient has history of syndrome of inappropriate antidiuretic hormone. We will continue tolvaptan 50 mg tablet once a day. 3. Status post cardiac ablation, doing well, in normal sinus rhythm. 4. Urinary tract infection, currently on antibiotics. The patient was placed on Levaquin and this has been discontinued. He is currently on cefdinir at the present time. 5. Overall, I agree with current management. Start lasix and KCl - per Cardiology recommendation; discussed with Dr. Carrasquillo Job ID: [id number] [facility]
--- NOTE | 2018-08-26 12:39 | PDOC.CTH ---
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 He was brought to [facility] for an elective outpatient ablation therapy. He received a total of 30 minutes of RF energy delivered and underwent successful cavotricuspid isthmus ablation in addition to successful pulmonary venous isolation. He has been stable since the end of the procedure. He has not had any early recurrence of atrial arrhythmias and maintained sinus rhythm with heart rate slightly elevated in the 90s. Post ablation he was breathing easily but did have some low urine output since his Briscoe was removed. Bladder scans did not reveal any urinary retention issues, with PVR <100mL Father Ana came back to the hospital reporting shortness of breath. No further chest pain or burning with urination SOB is improved too. - Objective Vital Signs Temp Pulse BP Pulse Ox 08/26/18 08:33 112/59 L 08/26/18 08:31 91 112/59 L 08/26/18 08:00 98.5 F 97 08/26/18 07:00 96 F L Admit Weight 3.968 oz Weight 248 lb 14.43 oz 08/25/18 08/26/18 08/27/18 06:59 06:59 06:59 Intake Total 1830 1160 350 Output Total 1300 2895 240 Balance 530 -1735 110 - Physical Examination General/Neuro: alert & oriented x3, NAD Neck: carotid US brisk, no JVD present Lungs: CTA, unlabored respirations Heart: PMI normal, RRR Abdomen: NT/ND, soft - Telemetry Telemetry Rhythm: SR - Labs Result Diagrams: 08/26/18 04:45 08/26/18 04:45 Troponin/CKMB CK-MB (CK-2) 1.6 ng/mL (0-6.6) 08/24/18 00:57 Troponin I 1.477 ng/mL (< 0.028) H* 08/24/18 07:32 - Assessment/Plan 1. History of Persistent atrial fibrillation, currently in sinus rhythm - s/p PVAI (and CTI ablation for typical atrial flutter) on 08/22/18 2. Shortness of breath -likely fluid overload -improving without diuresing. 3. Oral anticoagulation -Xarelto 4. Hyponatremia -per nephrology/primary team 5. A/C kidney disease 6. UTI - GN rods, as per primary team 7. Hyperglycemia - as per primary team 8. Edema, fluid overload - 2+ BLE Echocardiogram did not reveal any significant pericardia effusion or tamponade. Some MR and some aortic stenosis is seen during the bedside exam. Remains in sinus rhythm post ablation. Please continue oral anticoagulation. May offer PRN toradol for post ablation chest wall discomfort. Otherwise no post ablation complications are seen thus far. Lungs are clear but does have + SOB and pitting edema BLE. Would recommend considering lasix to remove some of his extra fluid. Rhythm remains stable. No new EP issues at time time. Will check on him Wednesday if he remains hospitalized.
[2018-08-26] MEDS ORDERED: Furosemide 40 MG TAB PO SCH (15:30)
[2018-08-26] MEDS ORDERED: Potassium Chloride 20 MEQ TAB PO SCH (15:30)
[2018-08-26] MEDS: Temazepam 15 MG CAP PO PRN (20:42)
[2018-08-26] MEDS: Insulin Glargine 28 UNITS in Pre-Filled Syringe 1 EACH SC SCH (20:42)
[2018-08-27 05:08] LABS: Anion Gap 12 mmol/L (10-20); BUN (Urea Nitrogen) 22 mg/dL (8.4-25.7); Calc. Creatinine Clearance 69 mL/min (70-130); Calcium 8.9 mg/dL (7.8-10.44); Carbon Dioxide 26 mmol/L (23-31); Chloride 96 mmol/L (98-107); Estimated GFR-MDRD 53; Glucose 117 mg/dL (83-110); Potassium 3.9 mmol/L (3.5-5.1); Sodium 130 mmol/L (136-145)
[2018-08-27 05:26] LABS: Band 14 % (5-11); Hemoglobin 10.8 g/dL (14.0-18.0); Lymphocytes 3 % (21-51); MDiff Complete? YES; Mean Corpuscular HGB CONC 32.2 g/dL (32.0-36.0); Mean Corpuscular Hemoglobin 27.2 pg (27.0-31.0); Mean Corpuscular Volume 84.5 fL (78.0-98.0); Mean Platelet Volume 9.3 fL (7.4-10.4); Monocytes 16 % (0-10); Myelocyte 1 % (0-0); Neutrophil 65 % (42-75); Platelet Count 176 thou/uL (130-400); Platelet Morphology Comment Appears Adequate; RBC Distribution Width 12.8 % (11.5-14.5); RBC Morphology Normal; Red Blood Cell (RBC) Count 3.98 mill/uL (4.70-6.10); White Blood Cell (WBC) Count 6.4 thou/uL (4.8-10.8)
--- NOTE | 2018-08-27 08:43 | PDOC.PN ---
- Subjective Encounter Start Date: 08/27/18 (f/u diabetes) Encounter Start Time: 08:41 Subjective: Pt reports breathing is better. Denies any chest pain, dyspnea. Able to -: ambulate with a walker. normally does not use a walker at home. slept -: better last night with restoril. Denies any complaints today - Objective Resuscitation Status - Order Detail: 08/24/18 08:40 Resuscitation Status Routine Resuscitation Status: FULL: Full Resuscitation Vital Signs & Weight: Vital Signs (12 hours) Temp BP 08/27/18 05:00 98.2 F 08/27/18 00:00 98.2 F 08/26/18 20:43 144/72 H Weight Admit Weight 3.968 oz Weight 248 lb 14.43 oz Most Recent Monitor Data Heart Rate from ECG 81 NIBP 129/71 NIBP BP-Mean 90 Respiration from ECG 21 SpO2 95 I&O: 08/26/18 08/27/18 08/28/18 06:59 06:59 06:59 Intake Total 1160 1300 Output Total 2895 2840 Balance -1735 -1540 Result Diagrams: 08/27/18 04:28 08/27/18 04:28 Additional Labs: Accuchecks 08/27/18 08/26/18 08/26/18 06:24 20:41 17:09 POC Glucose 130 H 205 H 182 H 08/26/18 08/26/18 11:47 08:15 POC Glucose 181 H 183 H EKG Reviewed by me: Yes (sinus 80's pvc's) Phys Exam - Physical Examination Constitutional: NAD Respiratory: no wheezing, no rales, no rhonchi, clear to auscultation bilateral Cardiovascular: RRR, no significant murmur Gastrointestinal: soft, non-tender, no distention, positive bowel sounds 2+ edema in bilateral LE Neurological: non-focal, moves all 4 limbs Skin: no rash Dx/Plan (1) Sepsis Code(s): A41.9 - SEPSIS, UNSPECIFIED ORGANISM Status: Acute (2) CKD (chronic kidney disease) Code(s): N18.9 - CHRONIC KIDNEY DISEASE, UNSPECIFIED Status: Chronic Qualifiers: Chronic kidney disease stage: stage 3 (moderate) Qualified Code(s): N18.3 - Chronic kidney disease, stage 3 (moderate) (3) Hyponatremia Code(s): E87.1 - HYPO-OSMOLALITY AND HYPONATREMIA Status: Chronic (4) UTI (urinary tract infection) Status: Acute Qualifiers: Urinary tract infection type: acute cystitis Hematuria presence: without hematuria Qualified Code(s): N30.00 - Acute cystitis without hematuria (5) Dyslipidemia Code(s): E78.5 - HYPERLIPIDEMIA, UNSPECIFIED Status: Chronic (6) Paroxysmal atrial fibrillation Code(s): I48.0 - PAROXYSMAL ATRIAL FIBRILLATION Status: Chronic (7) Diabetes mellitus type 2 in nonobese Code(s): E11.9 - TYPE 2 DIABETES MELLITUS WITHOUT COMPLICATIONS Status: Chronic (8) Hypertension Code(s): I10 - ESSENTIAL (PRIMARY) HYPERTENSION Status: Chronic - Plan * * Pt continues to improve * appreciate Nephro and Pulmonology and EP consults * * Pt received lasix yesterday afternoon and scheduled daily. Renal function stable/slightly improved today * * sepsis secondary to Klebsiella UTI possibly from campos catheter on 08/22 - changed to cefdinir - anticipate 7 days of abx * * hyponatremia -improved, d/w Dr. Moya and continue the vaptin while here and d/ c at discharge * * DM control improved, continue higher dose of lantus * * Insomnia secondary to hospital - continue the restoril prn while here * * anticipate d/c soon. Pt and his POA are asking about pancreas mass and if this can be contributing to lower sodium and higher blood sugars. Discussed that any surgery or procedure can worsen SIADH and this may be the source as well as infection and some volume overload. Will message Dr. Nieves to see if she is available to discuss the plan for the mass and if this needs to be addressed as an inpatient. * * dvt prophy - on full dose oral anticoagulant * di prophy - not indicated * code status full * * reviewed plan of care with patient, no questions or further needs at end of eval. Pt remains at high risk in current condition... * * Spoke with Dr. Nieves earlier today and follow up will be arranged by her office. She does not think the sodium level is related to the pancreatic mass. There is no indication for the patient to remain in the hospital for this issue. Conveyed the information to patient. * * Plan is lasix 40 mg daily for 1 week with potassium supplementation, and follow up with Dr. Moya. Anticipate discharge tomorrow.
[2018-08-27] MEDS: Loratadine 10 MG TAB PO SCH (09:25)
[2018-08-27] MEDS: Alogliptin 25 MG TAB PO SCH (09:25)
[2018-08-27] MEDS: Potassium Chloride 20 MEQ TAB PO SCH (09:26)
[2018-08-27] MEDS: Amlodipine 5 MG TAB PO SCH (09:26)
[2018-08-27] MEDS: Fenofibrate Nanocrystallized 145 MG TAB PO SCH (09:26)
[2018-08-27] MEDS: Atorvastatin Calcium 10 MG TAB PO SCH (09:27)
[2018-08-27] MEDS: Cefdinir 300 MG CAP PO SCH ×2 (09:27→20:41)
[2018-08-27] MEDS: Tamsulosin HCl 0.4 MG CAP PO SCH (09:27)
[2018-08-27] MEDS: Rivaroxaban 15 MG TAB PO SCH (09:27)
[2018-08-27] MEDS: Tolvaptan 15 MG TAB PO SCH (09:28)
[2018-08-27] MEDS: Sucralfate 1 GM TAB PO SCH ×4 (09:28→20:41)
[2018-08-27] MEDS: Aspirin Chewable 81 MG TAB PO SCH (09:29)
[2018-08-27] MEDS: Carvedilol 6.25 MG TAB PO SCH ×2 (09:29→20:41)
[2018-08-27] MEDS: Furosemide 20 MG TAB PO SCH (09:38)
--- NOTE | 2018-08-27 12:07 | PRG ---
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 He had an acute kidney injury on top of his chronic renal failure. IV volume repletion was initially given with improvement of his renal function. He also had a cardiac ablation therapy done recently. I did discuss with Dr. Carrasquillo regarding his case. He did recommend placing this patient on diuretic regimen. 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 Tolvaptan was started and this has improved his serum sodium. Most recent sodium is now noted at 130. This was 128 at one time. No other complaints today. The patient has had some difficulty sleeping. No complaints of chest pain or shortness of breath. OBJECTIVE: VITAL SIGNS: Blood pressure 149/65, heart rate 85, respiratory rate 22, and pulse ox 99%. GENERAL: The patient is sleeping, comfortable, not in distress. SKIN: Adequate turgor. HEENT: Pinkish conjunctivae. Anicteric sclerae. No neck mass. No carotid bruits. No JVD. CHEST: No deformities. LUNGS: Clear breath sounds. HEART: Normal sinus rhythm. No murmur. No gallops. No rubs. ABDOMEN: Globular, soft, nontender. No masses. EXTREMITIES: No edema, no deformities. MEDICATIONS: Medications of August 27, 2018, was reviewed. LABORATORY DATA: Laboratories of August 27, 2018; white count 6.4, hemoglobin 10.8. Sodium 130, potassium 3.9, chloride 96, carbon dioxide 26, BUN 22, creatinine 1.3, calcium 8.9, glucose is 113. ASSESSMENT AND PLAN: 1. Acute kidney injury/chronic renal failure. Stable renal function. Creatinine of 1.3 is near baseline. He is at stage III chronic renal failure. Continue supportive care. Continue current diuretic regimen. 2. Congestive heart failure, on maintenance Lasix and potassium. 3. Hyponatremia-from syndrome of inappropriate antidiuretic hormone secretion. Continue tolvaptan while in the hospital. Once the patient is discharged, consider discontinuing tolvaptan, place him on a strict free water restriction of 1.5 L per day. 4. Cardiac arrhythmia-status post cardiac ablation. The patient normal sinus rhythm. Job ID: [id number]
[2018-08-27] MEDS: HumaLOG 300 UNITS/3 ML VIAL SC PRN ×3 (12:18→20:40)
--- NOTE | 2018-08-27 12:19 | PRG ---
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 OBJECTIVE: VITAL SIGNS: Temperature is 98.1, pulse 85, blood pressure 149/65, O2 saturation 99%. HEENT: Unremarkable. NECK: No JVD. CHEST: Clear. CARDIAC: S1, S2. Regular. ABDOMEN: Soft. EXTREMITIES: No edema. LABORATORY DATA: White blood cell count 6.4, hematocrit 33.6, and platelet count 176. Sodium 130, potassium 3.9, chloride 96, CO2 of 26, BUN 22, creatinine 1.3, glucose 117. ASSESSMENT: 1. Klebsiella urinary tract infection. 2. Hyponatremia, which is improved. 3. Hypertension. 4. Supraventricular tachycardia. 5. Pancreatic mass. PLAN: The patient appears to be doing well from everybody's standpoint. He is probably ready for discharge to home on oral antibiotics. Job ID: [id number]
--- NOTE | 2018-08-27 19:02 | EKG ---
Test Reason : Blood Pressure : / mmHG Vent. Rate : 106 BPM Atrial Rate : 106 BPM P-R Int : 210 ms QRS Dur : 094 ms QT Int : 342 ms P-R-T Axes : 038 082 068 degrees QTc Int : 454 ms Sinus tachycardia with 1st degree A-V block with Premature atrial complexes with Abberant conduction Possible Left atrial enlargement Nonspecific ST abnormality Abnormal ECG Confirmed by SHIMON NGUYEN MD ([id number]), field map editor ILANA STRINGER ([id number]) on 08/27/2018 7:02:08 PM Referred By: Confirmed By:SHIMON NGUYEN MD
[2018-08-27] MEDS: Insulin Glargine 28 UNITS in Pre-Filled Syringe 1 EACH SC SCH (20:40)
[2018-08-27] MEDS: Temazepam 15 MG CAP PO PRN (20:41)
[2018-08-28 05:18] LABS: Anion Gap 11 mmol/L (10-20); BUN (Urea Nitrogen) 20 mg/dL (8.4-25.7); Calc. Creatinine Clearance 66 mL/min (70-130); Calcium 8.9 mg/dL (7.8-10.44); Carbon Dioxide 27 mmol/L (23-31); Chloride 95 mmol/L (98-107); Estimated GFR-MDRD 50; Glucose 122 mg/dL (83-110); Potassium 3.8 mmol/L (3.5-5.1); Sodium 129 mmol/L (136-145)
[2018-08-28 05:26] LABS: Band 7 % (5-11); Eosinophils 1 % (0-10); Hemoglobin 10.5 g/dL (14.0-18.0); Lymphocytes 25 % (21-51); MDiff Complete? YES; Mean Corpuscular HGB CONC 32.7 g/dL (32.0-36.0); Mean Corpuscular Hemoglobin 28.2 pg (27.0-31.0); Mean Corpuscular Volume 86.3 fL (78.0-98.0); Monocytes 8 % (0-10); Neutrophil 59 % (42-75); Platelet Count 196 thou/uL (130-400); Platelet Morphology Comment Appears Adequate; RBC Distribution Width 12.8 % (11.5-14.5); RBC Morphology Normal; Red Blood Cell (RBC) Count 3.71 mill/uL (4.70-6.10); White Blood Cell (WBC) Count 6.7 thou/uL (4.8-10.8)
[2018-08-28] MEDS: HumaLOG 300 UNITS/3 ML VIAL SC PRN (05:48)
[2018-08-28 07:13] VITALS: TEMP 98.5
[2018-08-28] MEDS: Rivaroxaban 15 MG TAB PO SCH (08:34)
[2018-08-28] MEDS: Tolvaptan 15 MG TAB PO SCH (08:34)
[2018-08-28] MEDS: Loratadine 10 MG TAB PO SCH (08:35)
[2018-08-28] MEDS: Fenofibrate Nanocrystallized 145 MG TAB PO SCH (08:35)
[2018-08-28] MEDS: Potassium Chloride 20 MEQ TAB PO SCH (08:35)
[2018-08-28] MEDS: Atorvastatin Calcium 10 MG TAB PO SCH (08:35)
[2018-08-28] MEDS: Sucralfate 1 GM TAB PO SCH (08:35)
[2018-08-28] MEDS: Cefdinir 300 MG CAP PO SCH (08:36)
[2018-08-28] MEDS: Furosemide 20 MG TAB PO SCH (08:36)
[2018-08-28] MEDS: Carvedilol 6.25 MG TAB PO SCH (08:36)
[2018-08-28] MEDS: Amlodipine 5 MG TAB PO SCH (08:37)
[2018-08-28] MEDS: Aspirin Chewable 81 MG TAB PO SCH (08:37)
[2018-08-28] MEDS: Alogliptin 25 MG TAB PO SCH (08:38)
[2018-08-28 08:39] VITALS: BP 118/66
--- NOTE | 2018-08-29 01:51 | DIS ---
DATE OF ADMISSION: 08/24/2018 DATE OF DISCHARGE: 08/28/2018 CONSULTANTS: 1. Pulmonology, Dr. Blue and Dr. Soto. 2. Nephrology, Dr. Moya. 3. Electrophysiology/Cardiology, Dr. Carrasquillo. MEDICATIONS: Medications are reconciled at discharge. New medications; 1. Lasix 40 mg once daily x7 days schedule. 2. Potassium chloride 20 mEq once a day for 7 days total. 3. Florastor 1 capsule daily for 30 days. Medications to resume; 1. Amlodipine 2.5 mg daily. 2. Aspirin 81 mg daily. 3. Lipitor 10 mg daily. 4. Carvedilol 6.25 mg b.i.d. 5. Fenofibrate 145 mg daily. 6. Furosemide 40 mg daily as needed for swelling, shortness of breath. 7. Tresiba 25 units as scheduled subcutaneous at bedtime. 8. Claritin 10 mg daily. 9. Protonix 40 mg daily. 10. Potassium chloride 20 mEq daily when taking the as needed furosemide. 11. Xarelto 15 mg daily. 12. Sucralfate 1 g p.o. four times daily as instructed by Dr. Carrasquillo or your primary care provider. 13. Januvia 100 mg daily. FINAL DIAGNOSES: 1. Acute on chronic hyponatremia in the context of syndrome of inappropriate antidiuretic hormone secretion. 2. Acute hypoxic respiratory failure, secondary to volume overload. 3. Urinary tract infection, uncomplicated. 4. Chronic kidney disease stage 3, stable. 5. Status post cardiac ablation, on full anticoagulation. 6. Anemia, chronic, stable and likely secondary to chronic kidney disease. 7. Pancreatic mass, uncharacterized. 8. Volume overload with preserved ejection fraction. SECONDARY DIAGNOSES: 1. Hypertension. 2. Dyslipidemia. 3. Diabetes mellitus type 2. FOLLOWUP: 1. Dr. Moya, please contact his office this week to arrange a followup blood test for monitoring of kidneys. 2. Dr. Richard - follow up this week for a general check, as well as to repeat a urine culture to ensure that the urinary tract infection has resolved. 3. Follow up with Cardiology as previously instructed. 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 At home, his symptoms did not improve with getting out of bed and going to a chair, and he noted generalized swelling. In addition, he reports some intermittent subjective fevers. In the emergency room, his presentation was concerning for acute hypoxic respiratory failure, urinary tract infection, and the patient was admitted to the Hospital Service. HOSPITAL COURSE: The patient was started on broad spectrum antibiotics, which I reviewed with the pharmacist today. He received 1 dose of vancomycin and 1 dose of the Zosyn on 08/24, also received 1 g of Rocephin for 3 days starting on 08/24, one dose of Levaquin 750 mg on 08/24, and one dose of 500 mg on 08/25. He was switched over to cefdinir on 08/26 and received 2 doses each day. His urine culture grew Klebsiella resistant to ampicillin, sulbactam, gentamicin, and indeterminate to Zosyn, tobramycin, and nitrofurantoin. Because of the extensive amount of antibiotics, this will not be continued at discharge. The patient is asymptomatic. I will start Florastor at discharge to help reduce the likelihood of an intestinal infection. I requested he follow up with Dr. Richard for a repeat urine culture to ensure the infection has been adequately treated. The patient was diuresed here with scheduled furosemide. He has responded well to this and his breathing has improved. He is not requiring any oxygen therapy. He is able to ambulate with the assistance of a walker, and is overall asymptomatic. Diuretic therapy was initiated and discussed between Dr. Carrasquillo and Dr. Moya with a plan of 1 week of scheduled Lasix and then as-needed use. The patient also presented with hyponatremia, with known SIADH. On admission, his sodium level was 122, which decreased to 120, and subsequently improved with today's value of 129. He was started on tolvaptan and has tolerated this well. He is back to his usual level of sodium and there is no indication to continue this as an outpatient. The patient overall feeling well, ambulating, not requiring oxygen and does meet criteria for discharge to home. The patient with an elevated troponin on admission. He was evaluated by Dr. Carrasquillo of , who reviewed the echo and the patient did not have any significant effusion or tamponade. Remains in sinus rhythm. No complications were noted. Finally, the patient has a known pancreatic mass which has been imaged for at least the past few years and followed by Dr. Nieves. She met with the patient while here and will arrange followup in her office for this. There is no intervention planned. PHYSICAL EXAMINATION: VITAL SIGNS: On day of discharge, blood pressure 118/66, pulse 84, respirations 21, and temperature 98.7. GENERAL: Awake, alert, responsive, in no apparent distress. Able to speak in full sentences. LUNGS: Clear to auscultation bilateral. HEART: Normal S1, S2. Regular rate and rhythm. No audible murmurs. ABDOMEN: Soft with present bowel sounds. EXTREMITIES: 1+ pitting edema bilateral. DIET: Heart healthy, diabetic prudent with a free water restriction around 1.5 L per day. ACTIVITY: As tolerated. CODE STATUS: Full. DISCHARGE DISPOSITION: To home. HEDRICK FINDINGS AND TEST RESULTS: Renal panel today 129, 3.8, 95, 27, 21.35, and 122. Blood sugars over the past 24 hours have ranged from 122 to 217. Creatinine has ranged from 1.35 to 1.85. Liver function tests on admission, T bilirubin 2.4, AST 50, ALT 30, alkaline phosphatase 33, total protein 6.7, and albumin 3.7. BNP 238. Troponin 2.0, 1.7, and 1.47. Urinalysis showed large blood present, nitrite, large leukocyte esterase, 11 to 20 red blood cells, greater than 50 white blood cell. CBC 6.7, 10.5, 32.1, and 196. Chest x-ray on 08/24, cardiomegaly with mild pulmonary vascular congestion. Small bilateral pleural effusions suggesting mild CHF. Abdominal ultrasound on 08/24 shows a known pancreatic mass measuring 4 x 5 x 5 cm. Abdominal and pelvis CT on 08/24, which shows a slowly enlarging pancreatic body mass, stable left renal cyst, bilateral pleural effusions, and moderate amount of retained stool. Echocardiogram on 08/24 showed an EF of 45% to 50%, moderate MR, moderate-to- severe aortic stenosis and possible ruptured chordae of anterior leaflet of mitral valve. Urine culture shows Klebsiella resistant to ampicillin/sulbactam, gentamicin, and indeterminate to nitrofurantoin, Zosyn, and tobramycin. Influenza testing was negative. Blood cultures x2 on 08/24/2018 negative. Reviewed with the patient and his friend Susan this hospital course, the importance of followup, the medication changes, and to seek care precautions. There were no questions or further needs at the end of evaluation. Total time coordinating discharge is 45 minutes. Job ID: [id number] MTDD
== END 2018-08-28 09:37 | disposition home or self-care (01) | DRG 698 ==
LOC: ERS 00:36 → CCU 02:04
PROVIDERS: ADMIT Internal Medicine; ATTEND Internal Medicine
DX: T83.511A Infection and inflammatory reaction due to indwelling urethral catheter, initial encounter (principal); J96.01 Acute respiratory failure with hypoxia; A41.59 Other Gram-negative sepsis; N17.9 Acute kidney failure, unspecified; E22.2 Syndrome of inappropriate secretion of antidiuretic hormone; N39.0 Urinary tract infection, site not specified; I12.9 Hypertensive chronic kidney disease with stage 1 through stage 4 chronic kidney disease, or unspecified chronic kidney disease; N18.3 Chronic kidney disease, stage 3 (moderate); E11.22 Type 2 diabetes mellitus with diabetic chronic kidney disease; E87.70 Fluid overload, unspecified; I48.2 Chronic atrial fibrillation; E78.5 Hyperlipidemia, unspecified; K21.9 Gastro-esophageal reflux disease without esophagitis; D63.1 Anemia in chronic kidney disease; G47.09 Other insomnia; K86.9 Disease of pancreas, unspecified; Z85.118 Personal history of other malignant neoplasm of bronchus and lung; Z90.2 Acquired absence of lung [part of]; Z79.84 Long term (current) use of oral hypoglycemic drugs; Z79.82 Long term (current) use of aspirin; Z79.899 Other long term (current) drug therapy; Z87.891 Personal history of nicotine dependence; Y84.6 Urinary catheterization as the cause of abnormal reaction of the patient, or of later complication, without mention of misadventure at the time of the procedure
CPT/HCPCS: 36415; 36416; 51798; 71045; 74176; 76705; 76942; 80048; 80053; 81003; 81015; 82330; 82553; 82803; 82805; 83605; 83880; 84484; 85025; 85347; 85610; 85730; 87040; 87077; 87086; 87186; 87804; 92960; 93005; 93010; 93306; 93613; 93623; 93655; 93656; 93662; 94760; 96365; 96367; 96374; 96375; C1730; C1731; C1732; C1759; C1769; G0378; J0696; J1644; J1825; J1885; J1940; J1956; J2001; J2270; J2370; J2405; J2543; J2704; J2710; J2720; J2765; J3010; J3370; J7050

== ENCOUNTER 2018-08-30 12:34 | Inpatient (IN) | payer MEDICARE, BC ==
[2018-08-30] MEDS ORDERED: Acetaminophen 325 MG TAB PO PRN (13:59)
[2018-08-30] MEDS ORDERED: Dextrose 50% Abboject 50 ML SYRINGE SLOW IVP PRN (13:59)
[2018-08-30] MEDS ORDERED: Dextrose 5% in Water 1,000 ML IV PRN (13:59)
[2018-08-30] MEDS ORDERED: Morphine 4 MG/ML VIAL SLOW IVP PRN (13:59)
[2018-08-30 14:35] LABS: Hemoglobin 11.1 g/dL (14.0-18.0); Mean Corpuscular HGB CONC 32.6 g/dL (32.0-36.0); Mean Corpuscular Hemoglobin 27.9 pg (27.0-31.0); Mean Corpuscular Volume 85.6 fL (78.0-98.0); Mean Platelet Volume 9.4 fL (7.4-10.4); Platelet Count 301 thou/uL (130-400); RBC Distribution Width 13.2 % (11.5-14.5); Red Blood Cell (RBC) Count 3.97 mill/uL (4.70-6.10); White Blood Cell (WBC) Count 13.6 thou/uL (4.8-10.8)
[2018-08-30 14:45] LABS: Band 2 % (5-11); Lymphocytes 8 % (21-51); MDiff Complete? YES; Metamyelocyte 1 % (0-0); Monocytes 8 % (0-10); Myelocyte 1 % (0-0); Neutrophil 80 % (42-75); Ovalocytes SLIGHT = 2-5 cells (100X) (0-1/hpf); Platelet Morphology Comment Appears Adequate; Polychromasia SLIGHT = 2-3 cells (100X) (0-2/hpf)
--- NOTE | 2018-08-30 14:49 | HP ---
PRIMARY CARE PROVIDER: García Richard MD HISTORY OF PRESENT ILLNESS: The patient is a direct admit from Dr. Richard's office. The patient had atrial fib/flutter ablation on 08/22, went home on 08/23. He was back on 08/24 with UTI. He was discharged on 08/28/2018. He was seen by his primary care doctor today. He has had some abdominal pain for bile movement yesterday for overnight. They are described as soft brown. He is dizzy on arising with no falling. PAST MEDICAL HISTORY: Atrial flutter ablation 08/22, paroxysmal atrial fibrillation, diabetes mellitus type 2, hypertension, dyslipidemia, hyponatremia, history of lung cancer, history of pancreatic mass. PAST SURGICAL HISTORY: Lobectomy, left knee arthroplasty, cholecystectomy, appendectomy, cataract surgery with lens implants. CURRENT MEDICATIONS: 1. Sucralfate 1 g q.i.d. 2. Protonix 40 mg a day. 3. Insulin 25 units subcu at bedtime. 4. Januvia 100 mg a day. 5. Coreg 6.25 mg twice a day. 6. Lipitor 10 mg a day. 7. Aspirin 81 mg a day. 8. Amlodipine 2.5 mg a day. 9. Xarelto 15 mg a day. 10. Fenofibrate Tricor 145 mg a day. 11. Florastor 250 mg a day. 12. Lasix 40 mg a day. 13. K-Dur 20 mEq a day. ALLERGIES: NO KNOWN DRUG ALLERGIES. FAMILY HISTORY: Brother with coronary artery disease. Mother had a history of cancer. SOCIAL HISTORY: Nonsmoker, nondrinker, nondrug user. Full code. Surrogate decision maker would be his brother and [id number]. REVIEW OF SYSTEMS: GENERAL: No headaches, dizziness, or fainting. EYES: He has some itchy burning eyes. No blurred vision, double vision, etc. ENT: He had epistaxis with O2 when he was in the hospital. No ear pain or drainage. No current nasal bleeding. No trouble swallowing. CARDIAC: No chest pain, orthopnea or paroxysmal nocturnal dyspnea. GI: See present illness. He had one episode of emesis right before I saw him. Abdominal discomfort. GENITOURINARY: No hematuria, dysuria, or nocturia. MUSCULOSKELETAL: Marked swelling in his legs for compression stocking. NEUROLOGICAL: No strokes, seizures, or focal weakness. PSYCHIATRIC: No anxiety or depression. SKIN: No bruising, bleeding or rash. HEME/LYMPH: No tender or swollen lymph nodes in the axilla, inguinal, or cervical area. PHYSICAL EXAMINATION: VITAL SIGNS: Temperature 97.6, pulse 82, respirations 18, and blood pressure 113/72. HEAD, EYES, EARS, NOSE, AND THROAT: Revealed pupils equal and round with implants. Extraocular movements are intact. Sclerae are white. Tympanic membranes are clear. Nose is clear. Oral mucous membranes are wet. NECK: No jugular venous distention, adenopathy, or thyromegaly. CHEST: Clear to auscultation and percussion. HEART: Regular rate and rhythm. First and second heart sounds are clear. There are no appreciated murmurs or gallops. ABDOMEN: Soft. Bowel sounds are normal. There is no hepatosplenomegaly. No masses. No rebound. No bruits. Bowel sounds were hyper-resonant and he did have some distention, tympanitic. EXTREMITIES: Reveal 2 to 3+ edema with no cyanosis or clubbing. Pedal pulses obscured by edema. Carotid, radial and femoral pulses intact. SKIN: Warm and dry without bruises or rash. HEME/LYMPH: No tender or swollen lymph nodes in axilla, inguinal, or cervical area. STUDIES: There are no studies presented at all. He is a direct admit. PLAN: 1. Stat CBC, comp metabolic profile. 2. EKG. 3. Three-view abdomen, review when available. Also Accu-Cheks sliding scale will be monitored. If creatinine is adequate, we will get a CT with oral and IV contrast as soon as other studies are available. Job ID: [id number]
[2018-08-30] MEDS: Ondansetron ODT 4 MG TAB PO PRN (15:10)
--- NOTE | 2018-08-30 15:40 | RAD ---
FFrontal radiograph chest Upright and supine frontal imaging of the abdomen and pelvis: 08/30/2018 COMPARISON: Frontal radiograph chest 08/24/2018 HISTORY: Abdominal pain FINDINGS: Hazy nonspecific increased density is again noted within bilateral lung bases medially, wit h stable blunting of the costophrenic angles. Combination of findings suggest bibasilar nonspecific c onsolidation/collapse and pleural fluid. No pneumothorax. There is otherwise critical station of the aortic arch. Upright imaging demonstrates no free intraperitoneal air. The bowel gas pattern appears nonobstructed. Postoperative clips are noted in the mid right abdomen. There is multilevel degenerati ve change noted throughout the imaged spine and involving bilateral hips. Vascular calcification note d in the region of the splenic artery. IMPRESSION: Nonspecific bibasilar pleural and parenchymal opacity. Findings may be related to edema. No free intraperitoneal air or evidence of small bowel obstruction.
--- NOTE | 2018-08-30 17:59 | PDOC.EVN ---
Event Note - Event Note Event Note: EKG- pericarditis- stat ECHO
[2018-08-30 18:21] LABS: Anion Gap 19 mmol/L (10-20); BUN (Urea Nitrogen) 43 mg/dL (8.4-25.7); Calc. Creatinine Clearance 32 mL/min (70-130); Calcium 9.2 mg/dL (7.8-10.44); Carbon Dioxide 20 mmol/L (23-31); Chloride 92 mmol/L (98-107); Estimated GFR-MDRD 23; Glucose 293 mg/dL (83-110); Sodium 124 mmol/L (136-145)
[2018-08-30 18:23] LABS: Potassium 6.8 mmol/L (3.5-5.1)
[2018-08-30] MEDS: Sodium Chloride 0.9% 1,000 ML IV SCH (20:14)
[2018-08-30] MEDS: Zolpidem Tartrate 5 MG TAB PO PRN (20:14)
[2018-08-30] MEDS: Carvedilol 6.25 MG TAB PO SCH (20:14)
--- NOTE | 2018-08-30 20:57 | PRG ---
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 He was also complaining of dizziness on standing. He complains of some mild shortness of breath and abdominal fullness. During the initial evaluation, he was noted to be on acute kidney injury with hyperkalemia. Please note, this patient was discharged on Lasix and K-Dur. We are being consulted for his acute kidney injury as well as for hyperkalemia. He has been given insulin and Kayexalate earlier. PHYSICAL EXAMINATION: VITAL SIGNS: Blood pressure is noted at 94/63 with heart rate of 84, respiratory rate 16, temperature 97.2, and pulse ox 97%. GENERAL: Noted to be awake, supine, comfortable, not in overt distress. SKIN: Adequate turgor. HEENT: He has pinkish conjunctivae. Anicteric sclerae. NECK: No neck mass. No carotid bruits. No JVD. CHEST: No deformities. LUNGS: Decreased breath sounds. HEART: Normal sinus rhythm. No murmurs, gallops, or rubs. ABDOMEN: Globular, soft, nontender. No masses. EXTREMITIES: Positive for edema. NEUROLOGIC: Awake and oriented to 3 spheres. Moving all extremities. No tremors. No asterixis. No ataxia. MEDICATIONS: Medications of 08/30/2018; 1. Aspirin 81 mg daily. 2. Lipitor 10 mg at bedtime. 3. Coreg 6.25 mg p.o. b.i.d. 4. Insulin glargine 25 units subcu at bedtime. 5. Humalog sliding scale. 6. Morphine sulfate 4 mg IV q.4 p.r.n. 7. Niacin 750 mg once a day. 8. Zofran 4 mg p.o. q.6 p.r.n. 9. Protonix 40 mg tablet once a day. 10. Xarelto 15 mg tablet once a day. 11. Florastor 250 mg once a day. 12. Normal saline 125 mL/h q.8. 13. Status post Kayexalate. ASSESSMENT AND PLAN: 1. Hyperkalemia - the patient is status post Kayexalate. I will give lactulose 30 mL now to enhance a bowel movement with him to make the Kayexalate more effective. 2. Acute kidney injury - consider hemodynamically-mediated renal dysfunction. The patient was on diuretics. My bias is to add albumin infusion with this patient 25 g IV q.6 for the next 1 to 2 days. There is no indication for any dialytic intervention. We will be rechecking another potassium at midnight. I reviewed today's lab of August 30, 2018, white count 13.6 and hemoglobin 11.1. Sodium 124, potassium is 6.8, chloride 92, carbon dioxide is 20, BUN 43, creatinine 2.64, calcium 9.2. If the patient's hyponatremia worsens by tomorrow, we can always restart this patient on tolvaptan 15 mg tablet once a day. Overall, agree with current management. Job ID: [id number]
[2018-08-30] MEDS ORDERED: INSULIN DEGLUDEC 25 UNIT SQ SCH (21:00)
[2018-08-30] MEDS: Insulin Glargine 25 UNITS in Pre-Filled Syringe SC SCH (21:11)
[2018-08-30] MEDS: Albumin 25% 25 GM/100 ML BOT IVPB SCH (21:12)
[2018-08-30 23:00] LABS: Anion Gap 20 mmol/L (10-20); BUN (Urea Nitrogen) 48 mg/dL (8.4-25.7); Calc. Creatinine Clearance 27 mL/min (70-130); Calcium 9.4 mg/dL (7.8-10.44); Carbon Dioxide 21 mmol/L (23-31); Chloride 90 mmol/L (98-107); Estimated GFR-MDRD 19; Glucose 310 mg/dL (83-110); Potassium 6.1 mmol/L (3.5-5.1); Sodium 125 mmol/L (136-145)
[2018-08-31] MEDS ORDERED: Sodium Chloride 0.9% 500 ML IV SCH (00:30)
[2018-08-31] MEDS ORDERED: Dextrose 50% Abboject 50 ML SYRINGE SLOW IVP SCH (00:45)
[2018-08-31] MEDS ORDERED: Insulin Regular 300 UNITS/3 ML VIAL SC SCH (00:45)
[2018-08-31] MEDS ORDERED: Calcium Gluc 4.6 MEQ/10 ML (100 MG/ML) SLOW IVP SCH (00:45)
[2018-08-31] MEDS: Sodium Chloride 0.9% 1,000 ML IV SCH ×4 (00:51→09:53)
[2018-08-31] MEDS: HumaLOG 300 UNITS/3 ML VIAL SC PRN ×5 (03:18→21:30)
[2018-08-31] MEDS: Albumin 25% 25 GM/100 ML BOT IVPB SCH ×2 (03:19→09:54)
[2018-08-31] MEDS: Ondansetron ODT 4 MG TAB PO PRN (04:11)
[2018-08-31 05:05] LABS: Anion Gap 24 mmol/L (10-20); BUN (Urea Nitrogen) 50 mg/dL (8.4-25.7); Calc. Creatinine Clearance 25 mL/min (70-130); Calcium 9.2 mg/dL (7.8-10.44); Carbon Dioxide 15 mmol/L (23-31); Chloride 92 mmol/L (98-107); Estimated GFR-MDRD 18; Glucose 318 mg/dL (83-110); Potassium 5.9 mmol/L (3.5-5.1); Sodium 125 mmol/L (136-145)
[2018-08-31 05:09] LABS: Band 15 % (5-11); Hemoglobin 10.4 g/dL (14.0-18.0); Lymphocytes 10 % (21-51); MDiff Complete? YES; Mean Corpuscular HGB CONC 32.3 g/dL (32.0-36.0); Mean Corpuscular Volume 86.6 fL (78.0-98.0); Mean Platelet Volume 10.2 fL (7.4-10.4); Metamyelocyte 1 % (0-0); Monocytes 6 % (0-10); Neutrophil 68 % (42-75); Platelet Count 288 thou/uL (130-400); Platelet Morphology Comment Appears Adequate; RBC Distribution Width 13.3 % (11.5-14.5); Red Blood Cell (RBC) Count 3.71 mill/uL (4.70-6.10); White Blood Cell (WBC) Count 17.7 thou/uL (4.8-10.8)
[2018-08-31 06:14] LABS: Potassium 5.9 mmol/L (3.5-5.1)
[2018-08-31] MEDS ORDERED: Insulin Regular 300 UNITS/3 ML VIAL SC STA (06:17)
[2018-08-31] MEDS ORDERED: Dextrose 50% Abboject 50 ML SYRINGE SLOW IVP PRN (06:19)
--- NOTE | 2018-08-31 06:42 | CON ---
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 He was also dizzy when he got up to walk. He has recently undergone atrial flutter ablation on August 22. At the time of admission, he was found to have a potassium of 6.1 and a creatinine of 3.0. His glucose was 310. Hemoglobin at that time was 11.1 and platelet count was 301,000. He was admitted, was given Kayexalate, and subsequently given insulin, glucose, and calcium. His most recent potassium is 5.9. This was at 0420 in the morning. Since that time, there has been no treatment, but an another potassium has just been drawn. Echocardiogram was performed at the time of admission. This shows pericardial effusion with compression of the right atrium and right ventricle. There is no acute tamponade type physiology. 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 He has no real complaints. His rhythm appears to be sinus. His pulse is in the 60s. His blood pressure is 95/57. PAST MEDICAL HISTORY: 1. History of lung cancer, status post right lower lobectomy by Dr. Masterson. 2. Atrial flutter/fibrillation, status post ablation. 3. Diabetes mellitus. 4. Hypertension. 5. Dyslipidemia. 6. History of pancreatic mass. PAST SURGICAL HISTORY: 1. Right thoracotomy with right lower lobectomy. 2. Left knee replacement. 3. Cholecystectomy. 4. Appendectomy. 5. Cataract surgery. CURRENT MEDICATIONS: Noted. ALLERGIES: NONE. SOCIAL HISTORY: He does not use tobacco, alcohol, or other drugs. REVIEW OF SYSTEMS: A 10-point review of systems is performed is negative except as above. PHYSICAL EXAMINATION: GENERAL: This is a well-developed, well-nourished man, resting comfortably in bed. He is a little bit short of breath. VITAL SIGNS: His temperature is 98.6, pulse is 69 and regular, blood pressure 95/57, oxygen saturations are 95%. NECK: Supple without adenopathy. CHEST: Clear bilaterally. HEART: Rhythm is regular. There are diminished heart tones. ABDOMEN: Slightly distended. Soft and nontender. EXTREMITIES: There is pitting pretibial edema bilaterally. LABORATORY DATA: I have reviewed his echo and chest x-ray series. ASSESSMENT AND PLAN: Pericardial effusion with right atrial and ventricular compression. This is not an acute tamponade situation, but it is causing some obstruction to the right heart filling. I have discussed pericardial window with him. We will see what his potassium comes back this morning. He also to me appears to be intravascularly dry, although edematous. He has been given 25% Either Dr. Masterson or I will plan for pericardial window later today. Job ID: [id number] [facility]
[2018-08-31] MEDS ORDERED: Insulin Regular 300 UNITS/3 ML VIAL IVP SCH (07:00)
[2018-08-31] MEDS ORDERED: Rivaroxaban 15 MG TAB PO SCH (09:00)
--- NOTE | 2018-08-31 09:31 | PRG ---
DATE OF SERVICE: 08/31/2018 SUBJECTIVE: Fr. Perez is an 83-year-old white male, who was admitted for generalized malaise and acute kidney injury. His initial potassium was elevated. He was given Kayexalate, which now improved to a most recent value of 5.9. However, the patient decompensated. He became hypotensive. Emergent cardiac echo was done, which showed significant pericardial effusion. Cardiothoracic Surgery has been consulted. Dr. Masterson is to evaluate this patient. We are following this patient for his acute kidney injury. OBJECTIVE: VITAL SIGNS: Blood pressure is 76/54, heart rate 85, respiratory rate 9, and pulse ox 92%. GENERAL: Awake, comfortable, not in overt distress. SKIN: Adequate turgor. HEENT: Slightly pale conjunctivae. Anicteric sclerae. NECK: No neck mass. No carotid bruits. No JVD. CHEST: No deformities. LUNGS: Clear breath sounds. HEART: Normal sinus rhythm. No murmurs. No gallops. No rubs. ABDOMEN: Globular, soft, and nontender. No masses. EXTREMITIES: Positive for edema. No deformities. MEDICATIONS: Medications of August 31, 2018, reviewed. LABORATORY DATA: Laboratories of August 31, 2018; sodium 125, potassium 5.9, chloride 92, carbon dioxide 15, BUN 50, creatinine 3.37, glucose 318, and calcium 9.2. Hemoglobin 10.4. ASSESSMENT AND PLAN: 1. Hypotension - emergent. The patient was given 2 L of fluid. Cardiac echo was done and tentative report showed a possible pericardial effusion. Cardiothoracic Surgery has been consulted. 2. Acute kidney injury - superimposed hemodynamically-mediated dysfunction, status post volume repletion. Continue supportive care. No indication for any emergent hemodialysis. 3. Hyperkalemia. Potassium is much improved from 6.8 to a most recent value of 5.9. Continue supportive care. There is no indication for any emergent dialysis with this patient. 4. Pericardial effusion/pericardial tamponade - for emergent pericardial window placement Overall prognosis remains guarded. Continue supportive care. [facility] ID: [id number] [facility]
[2018-08-31] MEDS ORDERED: Fentanyl 100 MCG/2 ML VIAL ONE (09:42)
[2018-08-31] MEDS ORDERED: Sodium Bicarbonate 150 MEQ in Dextrose 5% in Water 1,000 ML IV SCH (09:45)
[2018-08-31] MEDS ORDERED: CEFAZOLIN 2 GM in Premix Bag 1 BAG IVPB SCH (10:00)
[2018-08-31] MEDS ORDERED: PHENYLEPHRINE-NS 100 MCG/ML 10 ML SYRINGE ONE ×2 (10:07→16:28)
--- NOTE | 2018-08-31 10:07 | CON ---
DATE OF CONSULTATION: 08/31/2018 SERVICE: Pulmonary Medicine. REASON FOR CONSULT: Respiratory failure. HISTORY OF PRESENT ILLNESS: The patient is an 83-year-old white male with past medical history significant for history of lung cancer and a pancreatic mass. Either way, he was in his usual state of health until last week when he started having infectious symptoms. He came into the emergency department and was discovered to have urinary tract infection. He was discharged from the hospital 2 to 3 days ago on oral antibiotic. Since then, all of his infectious symptoms improved, though he had progressive shortness of breath, paroxysmal nocturnal dyspnea and orthopnea. He returned to the emergency department because of shortness of breath and ultimately was discovered to have a large pericardial effusion that had tamponade physiology. Because of marginal blood pressures, he was transitioned out from the floor to the IMCU and subsequently sent to the ICU. He denies having cough, fevers, chills, nausea, vomiting, or diarrhea. Otherwise, he is in his usual state of health. PAST MEDICAL HISTORY: 1. Paroxysmal atrial fibrillation, status post ablation in 2018. 2. Type 2 diabetes mellitus. 3. Hypertension. 4. Dyslipidemia. 5. Lung cancer. 6. Pancreatic mass. PAST SURGICAL HISTORY: 1. History of lobectomy. 2. Left knee arthroplasty. 3. Cholecystectomy. 4. Appendectomy. 5. Cataract surgery with lens implants. ALLERGIES: NO KNOWN DRUG ALLERGIES. MEDICATIONS: List of his inpatient medications was reviewed. Multiple updates were made at this time. FAMILY HISTORY: Noncontributory. SOCIAL HISTORY: Negative for alcohol, tobacco, or illicit drug use. He has no exposure to chemicals, dust, asbestos, or tuberculosis. REVIEW OF SYSTEMS: General; head, eyes, ears, nose, and throat; cardiovascular, respiratory, GI, , musculoskeletal, neurologic, and skin are negative, except as mentioned in the HPI. PHYSICAL EXAMINATION: VITAL SIGNS: Afebrile, pulse 85, blood pressure 76/54, respirations 9, saturation 97% on room air. GENERAL: The patient is awake and alert, in no apparent distress. LUNGS: Decent air entry. Dependent crackles are noted. No prolonged expiratory phase or wheezing is appreciated. HEART: Normal rate regular. ABDOMEN: Soft, nontender, nondistended. Bowel sounds are positive. MUSCULOSKELETAL: No cyanosis or clubbing. No pitting in the bilateral lower extremities. NEUROLOGICAL: Grossly nonfocal. LABORATORY DATA: WBC 17.7, hemoglobin 10.4, platelets 288,000. Band count is 15% on top of 68% neutrophils. Creatinine is up trending to 3.27, BUN 50, anion gap 24, bicarb 15, chloride 92, potassium 5.9, sodium 125, calcium 9.2. IMAGING STUDIES: Echocardiogram demonstrates RV and RA collapse. Respiratory variation was not performed. EF is normal. Acute abdominal series demonstrate nonspecific bibasilar pleural-parenchymal opacifications which are essentially stable. No free intraperitoneal air is present. No evidence of small bowel obstruction. ASSESSMENT: 1. Acute hypoxic respiratory failure. 2. Cardiac tamponade, evolving. 3. History of lung cancer. 4. Pancreatic mass. 5. Hyponatremia. DISCUSSION AND PLAN: The patient is going to get a liter of fluid. We have him in line for a pericardial window as soon as it can be recently done. We have a pericardiocentesis catheter at bedside in the event that things get significantly worse. We will continue his outpatient antibiotics. Once the pericardial window is in place, we will initiate diuretics as the patient is floridly volume overloaded. Repeat laboratories will be performed to verify the hyperkalemia is resolving. Pulmonary Critical Care will continue to follow very closely. 70 minutes have been devoted to this patient in various activities. I personally reviewed all imaging studies and laboratory data noted within this document. For fifty percent of this time, I was interacting with the patient at the bedside or coordinating care with the care team. For the remainder of the time I was immediately available to the patient in the hospital unit. Job ID: [id number] MTDD
[2018-08-31] MEDS ORDERED: Phenylephrine HCL 10 MG/ML VIAL ONE (10:23)
[2018-08-31] MEDS ORDERED: Bupivacaine HCl 0.5%/Epinephrine 1:200,000/PF 30 ml Vial ONE (10:31)
[2018-08-31] MEDS ORDERED: SUGAMMADEX SODIUM 500 MG/5 ML VIAL ONE (10:41)
[2018-08-31] MEDS ORDERED: Sodium Chloride 0.9% 1,000 ML IV SCH (10:45)
[2018-08-31] MEDS ORDERED: traMADol HCl 50 MG TAB PO PRN (10:46)
[2018-08-31] MEDS ORDERED: Fentanyl 100 MCG/2 ML VIAL SLOW IVP PRN (10:46)
[2018-08-31 11:07] LABS: BF Color Red; Body Fluid Source Pericardial Fluid; Clarity Cloudy/Turbid (Clear); Tube # EDTA
[2018-08-31 11:08] LABS: WBC/NonHematic-Auto 7060 /cumm
[2018-08-31 11:09] LABS: RBC Count-Automated 2850000 /cumm
[2018-08-31 11:50] LABS: Anion Gap 20 mmol/L (10-20); BUN (Urea Nitrogen) 52 mg/dL (8.4-25.7); Calc. Creatinine Clearance 24 mL/min (70-130); Carbon Dioxide 17 mmol/L (23-31); Chloride 97 mmol/L (98-107); Estimated GFR-MDRD 17; Glucose 198 mg/dL (83-110); Potassium 5.4 mmol/L (3.5-5.1); Sodium 129 mmol/L (136-145)
[2018-08-31 11:59] LABS: Band 13 % (5-11); Hemoglobin 8.8 g/dL (14.0-18.0); Lymphocytes 9 % (21-51); MDiff Complete? YES; Mean Corpuscular HGB CONC 31.6 g/dL (32.0-36.0); Mean Corpuscular Hemoglobin 27.5 pg (27.0-31.0); Mean Platelet Volume 9.8 fL (7.4-10.4); Metamyelocyte 1 % (0-0); Monocytes 6 % (0-10); Myelocyte 4 % (0-0); Neutrophil 67 % (42-75); Platelet Count 250 thou/uL (130-400); Platelet Morphology Comment Appears Adequate; Polychromasia SLIGHT = 2-3 cells (100X) (0-2/hpf); RBC Distribution Width 13.2 % (11.5-14.5); Red Blood Cell (RBC) Count 3.21 mill/uL (4.70-6.10); Reflex for Review?? NO; Vacuoles MODERATE; White Blood Cell (WBC) Count 19.2 thou/uL (4.8-10.8)
--- NOTE | 2018-08-31 12:21 | RAD ---
CHEST ONE VIEW: COMPARISON: 08/24/2018 and 08/30/2018 at 3:20 p.m. FINDINGS: Interval placement of a left-sided central venous catheter, subclavian in origin, with the distal tip projecting over the expected region of the superior vena cava. The heart is enlarged. Bilateral pl eural and parenchymal changes. No pneumothorax. IMPRESSION: 1. Interval placement of a left-sided central venous catheter. No pneumothorax. 2. Bibasilar pleural and parenchymal changes. POS: C
[2018-08-31] MEDS: Aspirin Chewable 81 MG TAB PO SCH (12:36)
[2018-08-31] MEDS: Atorvastatin Calcium 10 MG TAB PO SCH (12:37)
[2018-08-31] MEDS: Saccharomyces boulardii 250 MG CAP PO SCH (12:38)
[2018-08-31] MEDS: Carvedilol 6.25 MG TAB PO SCH ×2 (12:38→20:21)
[2018-08-31] MEDS: CEFAZOLIN 2 GM in Premix Bag 1 BAG IVPB SCH ×2 (12:56→20:21)
--- NOTE | 2018-08-31 13:00 | OP ---
DATE OF PROCEDURE: 08/31/2018 PREOPERATIVE DIAGNOSIS: Acute pericardial tamponade. POSTOPERATIVE DIAGNOSIS: Acute pericardial tamponade. PROCEDURES PERFORMED: 1. Left subclavian central line placement. 2. Pericardial window. ANESTHESIA: General endotracheal. ESTIMATED BLOOD LOSS: Minimal. FINDINGS: 1500 mL of blood within the pericardium. SPECIMENS: Fluid sent for cytology, cell count, Gram stain, and culture. DRAINS: A 24-Hungarian Herminio drain placed in the pericardium. DESCRIPTION OF PROCEDURE: After consent was obtained, the patient was brought to the operating room, placed in supine position on the operating room table. Appropriate central line was placed and general endotracheal anesthesia was induced. A left subclavian central line was placed by modified Seldinger technique. This line was secured and sterilely dressed. Chest and abdomen were prepped and draped in usual sterile fashion. Skin incision was made over the xiphoid. The xiphoid was sharply resected. The pericardium was then sharply entered and 1500 mL of blood was evacuated from the pericardium. Specimens were sent as above. A 24-Hungarian drain was placed along the diaphragm in the pericardium. The fascia was reapproximated with #1 Vicryl in an interrupted fashion. The wounds were then closed in layers and Dermabond applied to skin. The patient tolerated the procedure well and was hemodynamically stable at completion. Job ID: [id number]
[2018-08-31] MEDS ORDERED: Furosemide 40 MG/4 ML VIAL SLOW IVP SCH (14:00)
[2018-08-31 14:24] LABS: BF Segmented Neutrophils 81 %; Cell Count Non Hematic 15 %; Eosinophils 2 %; Lymphocytes 2 %
--- NOTE | 2018-08-31 14:52 | PDOC.PN ---
- Subjective Encounter Start Date: 08/31/18 Encounter Start Time: 14:00 Subjective: f/u for acute pericardial tamponade s/p pericardial window with 1.5 L -: blood effusion drained. Hemodynamically stabilizing after evacuation -: of fluid. - Objective Resuscitation Status - Order Detail: 08/30/18 13:55 Resuscitation Status Routine Resuscitation Status: FULL: Full Resuscitation MAR Reviewed: Yes Vital Signs & Weight: Vital Signs (12 hours) Temp Pulse Resp BP BP Pulse Ox 08/31/18 12:38 145/77 H 08/31/18 11:05 97.3 F L 08/31/18 08:20 97.7 F 08/31/18 08:19 96 08/31/18 08:16 97.7 F 85 22 H 76/54 L 98 08/31/18 08:10 85 20 119/57 L 95 08/31/18 07:12 97.6 F 08/31/18 04:00 97.1 F L Weight Admit Weight 237 lb 1.6 oz Weight 237 lb 1.6 oz Most Recent Monitor Data Heart Rate from ECG 86 NIBP 147/76 NIBP BP-Mean 99 Respiration from ECG 17 SpO2 96 I&O: 08/30/18 08/31/18 09/01/18 06:59 06:59 06:59 Intake Total 2190 1420 Output Total 850 10 Balance 1340 1410 Result Diagrams: 08/31/18 11:15 08/31/18 11:15 Additional Labs: Accuchecks 08/31/18 08/31/18 08/31/18 05:51 04:22 03:13 POC Glucose 339 H 328 H 376 H 08/31/18 08/30/18 08/30/18 02:12 19:31 16:09 POC Glucose 361 H 307 H 361 H Laboratory Tests 08/30/18 08/31/18 08/31/18 14:10 04:21 04:21 WBC 13.6 H 17.7 H Hgb 11.1 L 10.4 L Neutrophils % (Manual) 80 H 68 Band Neuts % (Manual) 2 L 15 H Sodium 125 L Potassium 5.9 H Carbon Dioxide 15 L BUN 50 H Creatinine 3.37 H 08/31/18 08/31/18 05:50 11:15 WBC Hgb Neutrophils % (Manual) 67 Band Neuts % (Manual) 13 H Sodium Potassium 5.9 H Carbon Dioxide BUN Creatinine Radiology Reviewed by me: Yes (Echo - RA/RV collapse, large pericardial effusion ) EKG Reviewed by me: Yes (Tele - SR) Phys Exam - Physical Examination alert, pale, responsive HEENT: PERRLA, sclera anicteric, oral pharynx no lesions Neck: no nodes, no JVD, supple, full ROM Respiratory: no wheezing, no rales, no rhonchi, clear to auscultation bilateral Pericardial Herminio drain in place Cardiovascular: RRR, no rub, gallop Gastrointestinal: soft, non-tender, no distention, positive bowel sounds Musculoskeletal: pulses present, edema present Neurological: normal sensation, moves all 4 limbs Psychiatric: A&O x 3 Skin: normal turgor, cap refill <2 seconds Dx/Plan (1) Cardiac tamponade Code(s): I31.4 - CARDIAC TAMPONADE Status: Acute Comment: s/p pericardial window with 1.5L removed and Herminio drain placement, continue critical monitoring (2) Hypotension Status: Acute Comment: Secondary to #1, improved after pericardial window, avoid antihypertensives, serial monitoring (3) GUTIERREZ (acute kidney injury) Code(s): N17.9 - ACUTE KIDNEY FAILURE, UNSPECIFIED Status: Acute Comment: Secondary to shock and hypoperfusion, avoid nephrotoxic meds and limit contrast exposure, serial creatinine (4) CKD (chronic kidney disease), stage III Code(s): N18.3 - CHRONIC KIDNEY DISEASE, STAGE 3 (MODERATE) Status: Chronic Comment: See above (5) Atrial fibrillation Code(s): I48.91 - UNSPECIFIED ATRIAL FIBRILLATION Status: Acute Qualifiers: Atrial fibrillation type: paroxysmal Qualified Code(s): I48.0 - Paroxysmal atrial fibrillation Comment: s/p cardiac ablation with return of SR, continue (6) Hyponatremia Code(s): E87.1 - HYPO-OSMOLALITY AND HYPONATREMIA Status: Chronic Comment: Likely due to volume overload, improved, serial Na+ - Plan continue antibiotics, PT/OT, transition social worker, DVT proph w/SCDs continue critical support -: Avoid antihypertensives -: Hold all anticoagulation -: PT for mobilization -: AM lab: CMP, CBC, Mg++, PO3 * .
[2018-08-31] MEDS ORDERED: Succinylcholine Chloride 20 MG/ML 10 ml SYRINGE FS ONE (16:28)
[2018-08-31] MEDS ORDERED: Rocuronium Bromide 10 MG/ML (10ML VIAL) ONE (16:28)
[2018-08-31] MEDS ORDERED: Glycopyrrolate 0.2 MG/ML 5 ML SYRINGE ONE (16:28)
[2018-08-31] MEDS ORDERED: Lidocaine 1% PF 5 ML VIAL ONE (16:28)
[2018-08-31] MEDS ORDERED: ePHEDrine 50 MG/ML VIAL ONE (16:28)
[2018-08-31] MEDS ORDERED: PROPOFOL 200 MG/20 ML VIAL ONE (16:28)
[2018-08-31] MEDS ORDERED: Ondansetron PF 4 MG/2 ML Vial ONE (16:28)
[2018-08-31] MEDS: Insulin Glargine 25 UNITS in Pre-Filled Syringe SC SCH (20:22)
[2018-08-31] MEDS: Zolpidem Tartrate 5 MG TAB PO PRN (20:27)
[2018-09-01 05:03] LABS: ALT (SGPT) 1629 U/L (8-55); AST (SGOT) 2844 U/L (5-34); Alkaline Phosphatase 80 U/L (40-150); Anion Gap 12 mmol/L (10-20); BUN (Urea Nitrogen) 50 mg/dL (8.4-25.7); Bilirubin, Direct 0.7 mg/dL (0.1-0.3); Calc. Creatinine Clearance 27 mL/min (70-130); Calcium 8.1 mg/dL (7.8-10.44); Carbon Dioxide 30 mmol/L (23-31); Chloride 90 mmol/L (98-107); Estimated GFR-MDRD 19; Glucose 199 mg/dL (83-110); Phosphorus 4.1 mg/dL (2.3-4.7); Potassium 3.5 mmol/L (3.5-5.1); Protein, Total 5.1 g/dL (5.8-8.1); Sodium 128 mmol/L (136-145)
[2018-09-01] MEDS: CEFAZOLIN 2 GM in Premix Bag 1 BAG IVPB SCH (05:09)
[2018-09-01 05:11] LABS: Band 2 % (5-11); Hemoglobin 9.6 g/dL (14.0-18.0); Hypochromia SLIGHT = 6-15 cells (100X) (0-5/hpf); Lymphocytes 3 % (21-51); MDiff Complete? YES; Mean Corpuscular HGB CONC 32.6 g/dL (32.0-36.0); Mean Corpuscular Volume 85.9 fL (78.0-98.0); Mean Platelet Volume 9.5 fL (7.4-10.4); Monocytes 1 % (0-10); Neutrophil 94 % (42-75); Platelet Count 280 thou/uL (130-400); Platelet Morphology Comment Appears Adequate; RBC Distribution Width 13.2 % (11.5-14.5); Red Blood Cell (RBC) Count 3.41 mill/uL (4.70-6.10); White Blood Cell (WBC) Count 21.3 thou/uL (4.8-10.8)
[2018-09-01] MEDS: HumaLOG 300 UNITS/3 ML VIAL SC PRN ×2 (06:50→13:32)
--- NOTE | 2018-09-01 07:48 | RAD ---
CHEST 1 VIEW: Date: 09/01/18 HISTORY: Post pericardial window. COMPARISON: Radiograph prior day. FINDINGS: The left subclavian central venous catheter is similar. Heart size mildly enlarged. Layering bilateral effusions with fluid extending along the right minor fissure and major fissure. No pneumothorax. IMPRESSION: Similar examination given the upright position on today's exam. POS: HOME
[2018-09-01] MEDS ORDERED: Magnesium Sulfate 2 GM in Sodium Chloride 0.9% 100 ML IVPB SCH (08:15)
[2018-09-01] MEDS ORDERED: Potassium Chloride 20 MEQ TAB PO SCH (08:15)
[2018-09-01] MEDS ORDERED: Magnesium 2 GM/50 ML 2 GM in Premix Bag 1 BAG IVPB SCH (08:45)
--- NOTE | 2018-09-01 09:03 | PRG ---
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 During the initial workup, he was found to have a large pericardial effusion with a possible pericardial tamponade. He underwent emergent surgery yesterday and a pericardial window was placed. He is breathing better today. We are following him up for his acute kidney injury on top of his chronic renal failure. He was also initially noted to be hyperkalemic, but potassium now is much improved. The patient voices no new complaints today. OBJECTIVE: VITAL SIGNS: Blood pressure is 102/60, heart rate 76, respiratory rate 17, and pulse ox 98%. GENERAL: Awake, comfortable, not in overt distress. SKIN: Adequate turgor. HEENT: He has a slightly pale conjunctivae. Anicteric sclerae. NECK: No neck mass. No carotid bruits. No JVD. CHEST: No deformities. LUNGS: Decreased breath sounds. HEART: Normal sinus rhythm. No murmur. No gallops or rubs. ABDOMEN: Globular, soft, and nontender. No masses. EXTREMITIES: No edema. MEDICATIONS: Medications of 09/01/2018, were reviewed. LABORATORY DATA: Laboratories of 09/01/2018; white count 21.3 and hemoglobin 9.6. Sodium 128, potassium 3.5, chloride 90, carbon dioxide 30, BUN 50, creatinine 3.1, glucose 199, phosphorus 4.1, AST is 2844, and ALT is 1629. ASSESSMENT AND PLAN: 1. Acute kidney injury on top of his chronic renal failure. Stabilizing renal function. Creatinine is actually slightly improved from 3.5 to 3.1. There is no indication for any dialytic intervention. The improved renal function may be a reflection of better hemodynamics with this patient after placement of a pericardial window. 2. Borderline anemia. We will continue to observe. 3. Hyperkalemia, resolved. 4. Pericardial effusion/pericardial tamponade-doing better. He is status post pericardial window placement. 5. Overall agree with current management. We will be rechecking another CBC and basic metabolic in a.m. Job ID: [id number]
[2018-09-01] MEDS: Saccharomyces boulardii 250 MG CAP PO SCH (09:20)
[2018-09-01] MEDS: Atorvastatin Calcium 10 MG TAB PO SCH (09:20)
[2018-09-01] MEDS: Aspirin Chewable 81 MG TAB PO SCH (09:21)
[2018-09-01] MEDS: Tamsulosin HCl 0.4 MG CAP PO SCH (09:21)
[2018-09-01] MEDS: Carvedilol 6.25 MG TAB PO SCH ×2 (09:21→21:06)
[2018-09-01] MEDS: Furosemide 40 MG/4 ML VIAL SLOW IVP SCH (09:24)
[2018-09-01] MEDS: Albumin 25% 25 GM/100 ML BOT IVPB SCH ×2 (09:24→15:42)
--- NOTE | 2018-09-01 10:00 | PDOC.PN ---
- Subjective Encounter Start Date: 09/01/18 Encounter Start Time: 09:40 Subjective: f/u s/p pericardial tamponade with pericardial window POD #1. Feels -: better today but weak. Dyspnea improved. - Objective Resuscitation Status - Order Detail: 08/30/18 13:55 Resuscitation Status Routine Resuscitation Status: FULL: Full Resuscitation MAR Reviewed: Yes Vital Signs & Weight: Vital Signs (12 hours) Temp BP 09/01/18 09:21 102/59 L 09/01/18 04:00 98.3 F 09/01/18 00:00 97.8 F Weight Admit Weight 237 lb 1.6 oz Weight 243 lb 6.245 oz Most Recent Monitor Data Heart Rate from ECG 80 NIBP 102/60 NIBP BP-Mean 74 Respiration from ECG 17 SpO2 98 I&O: 08/31/18 09/01/18 09/02/18 06:59 06:59 06:59 Intake Total 2190 3475 Output Total 850 4070 Balance 1340 -595 Result Diagrams: 09/01/18 04:20 09/01/18 04:20 Additional Labs: Accuchecks 08/31/18 08/31/18 21:27 18:18 POC Glucose 320 H 257 H Microbiology 08/31/18 10:17 Pericardial fluid Body Fluid Culture - Preliminary Laboratory Tests 08/26/18 08/30/18 08/31/18 04:45 14:10 04:21 WBC 13.6 H Hgb 11.1 L Neutrophils % (Manual) 80 H Band Neuts % (Manual) 2 L Sodium 125 L Potassium 5.9 H Carbon Dioxide 15 L BUN 50 H Creatinine 3.37 H Magnesium AST 17 ALT 21 08/31/18 08/31/18 08/31/18 04:21 05:50 11:15 WBC 17.7 H Hgb 10.4 L Neutrophils % (Manual) 68 Band Neuts % (Manual) 15 H Sodium 129 L Potassium 5.9 H 5.4 H Carbon Dioxide BUN Creatinine 3.50 H Magnesium AST ALT 08/31/18 09/01/18 09/01/18 11:15 04:20 04:20 WBC Hgb Neutrophils % (Manual) 67 Band Neuts % (Manual) 13 H Sodium Potassium Carbon Dioxide BUN Creatinine Magnesium 1.9 AST 2844 H ALT 1629 H EKG Reviewed by me: Yes (Tele - SR) Phys Exam - Physical Examination Constitutional: NAD alert, responsive HEENT: PERRLA, sclera anicteric, oral pharynx no lesions Neck: no nodes, no JVD, supple, full ROM diminished in bases Respiratory: no wheezing, no rhonchi S1, S2 Cardiovascular: RRR, no significant murmur, no rub, gallop Gastrointestinal: soft, non-tender, no distention, positive bowel sounds mild peripheral edema Musculoskeletal: pulses present Neurological: normal sensation, moves all 4 limbs Psychiatric: A&O x 3 Skin: normal turgor, cap refill <2 seconds Dx/Plan (1) Cardiac tamponade Code(s): I31.4 - CARDIAC TAMPONADE Status: Acute Comment: s/p pericardial window with 1.5L removed and Herminio drain placement, continue critical monitoring , supportive mgmt (2) Hypotension Status: Acute Comment: Secondary to #1, improved after pericardial window, avoid antihypertensives, serial monitoring, stabilizing currently (3) GUTIERREZ (acute kidney injury) Code(s): N17.9 - ACUTE KIDNEY FAILURE, UNSPECIFIED Status: Acute Comment: Secondary to shock and hypoperfusion, avoid nephrotoxic meds and limit contrast exposure, serial creatinine, mild improvement (4) CKD (chronic kidney disease), stage III Code(s): N18.3 - CHRONIC KIDNEY DISEASE, STAGE 3 (MODERATE) Status: Chronic Comment: See above (5) Atrial fibrillation Code(s): I48.91 - UNSPECIFIED ATRIAL FIBRILLATION Status: Acute Qualifiers: Atrial fibrillation type: paroxysmal Qualified Code(s): I48.0 - Paroxysmal atrial fibrillation Comment: s/p cardiac ablation with return of SR, current SR (6) Hyponatremia Code(s): E87.1 - HYPO-OSMOLALITY AND HYPONATREMIA Status: Chronic Comment: Likely due to volume overload, improved, serial Na+ (7) Shock liver Code(s): K72.00 - ACUTE AND SUBACUTE HEPATIC FAILURE WITHOUT COMA Status: Acute Comment: Suspected give prior hypotensive episode with pericardial tamponade, check RUQ sono, serial LFT's - Plan PT/OT, social media editor, respiratory therapy, out of bed/ambulate, DVT proph w/ SCDs Continue supportive mgmt -: OOB to chair -: Continue ASA, Lipitor -: Resuming Coreg -: Hold OAC * Check RUQ sono to r/o obstruction * AM laB: CMP, CBC, Mg++, PO3
[2018-09-01] MEDS: Polyethylene Glycol 3350 17 GM Packet PO SCH (11:00)
--- NOTE | 2018-09-01 15:59 | ULT ---
FUltrasound abdomen limited: (Right upper quadrant) 09/01/2018 HISTORY: 83-year-old male with transaminitis, elevated liver function tests. FINDINGS: There is a very hypoechoic mass at the junction between the body and tail of the pancreas that corres ponds to the pancreatic mass. It is partially visualized. Most of it is obscured by shadowing from ov erlying bandages (for cardiac ablation procedure recently). Liver is enlarged. Hepatic echogenicity is within normal limits. Small amount of free fluid abutting the left lobe. Gallbladder surgically absent. Common duct caliber is 5 mm. No hydronephrosis of the right kidney. IMPRESSION: 1. Hepatomegaly 2. Small volume of ascites. 3. Status post cholecystectomy. 4. Hypoechoic pancreatic mass, incompletely imaged
--- NOTE | 2018-09-01 16:42 | PRG ---
DATE OF SERVICE: 09/01/2018 SERVICE: Pulmonary Medicine. INTERVAL HISTORY: The patient is doing absolutely wonderful from respiratory standpoint. Yesterday, he ended up getting a pericardial window. Immediately following this procedure, the patient had improvement in blood pressure, in color. He denies any current nausea or vomiting. He has appropriate chest discomfort. Otherwise, there has been no interval change to his condition. PHYSICAL EXAMINATION: VITAL SIGNS: Afebrile, pulse 80, blood pressure 105/53, respirations 21, saturation 95% on 2 L nasal cannula. HEENT: Normocephalic and atraumatic. Sclerae are white. Conjunctivae are pink. Oral mucosa is moist without lesions. LUNGS: Excellent air entry. Dependent crackles are present. No prolonged expiratory phase or wheezing is appreciated. HEART: Normal rate, regular. ABDOMEN: Soft, nontender, and nondistended. Bowel sounds are positive. MUSCULOSKELETAL: No cyanosis or clubbing. There is 1+ pitting in the bilateral lower extremities. NEUROLOGIC: Grossly nonfocal. GENITOURINARY: Briscoe catheter in place. LABORATORY DATA: WBC 21.3, hemoglobin 9.6, platelets 280,000 and roughly stable. Band count has dramatically improved to 2%. Creatinine downtrending to 3.1, BUN 50. Basic metabolic profile is otherwise unremarkable. Sodium and chloride are both downtrending. AST and ALT are elevated at 2800 and 1600 respectively. Alkaline phosphatase falls within normal limits. Segmented neutrophils represent 81% of the significant white blood cells. That being said, this is primarily a bloody effusion. Body fluid culture is negative to-date. Cytology is negative for evidence of malignant cells. IMAGING DATA: Abdominal ultrasound demonstrates hepatomegaly, small volume ascites, and hypoechoic pancreatic mass. The patient is status post cholecystectomy. ASSESSMENT: 1. Acute hypoxic respiratory failure, improving. 2. Cardiac tamponade, status post pericardial window, postoperative day #1. 3. Pancreatic mass. 4. history of lung cancer. 5. Hyponatremia. DISCUSSION AND PLAN: We will restrict fluid to 1500 mL per day. We will continue to diurese through time to promote return to euvolemia. The patient will remain in the ICU for the time being. We will focus on mobilization efforts throughout today. Job ID: [id number]
[2018-09-01] MEDS: Zolpidem Tartrate 5 MG TAB PO PRN (21:10)
[2018-09-01] MEDS: Insulin Glargine 25 UNITS in Pre-Filled Syringe SC SCH (21:11)
[2018-09-02 05:10] LABS: #Eosinphils 0.1 thou/uL (0.0-0.7); #Lymphocytes 0.8 thou/uL (1.20-3.40); #Monocytes 0.9 thou/uL (0.11-0.59); #Neutrophils 12.7 thou/uL (1.40-6.50); %Basophils 0.2 % (0.0-1.0); %Lymphocytes 5.7 % (21.0-51.0); Hemoglobin 9.8 g/dL (14.0-18.0); Mean Corpuscular HGB CONC 32.9 g/dL (32.0-36.0); Mean Corpuscular Hemoglobin 28.4 pg (27.0-31.0); Mean Corpuscular Volume 86.2 fL (78.0-98.0); Mean Platelet Volume 9.3 fL (7.4-10.4); Platelet Count 291 thou/uL (130-400); RBC Distribution Width 13.3 % (11.5-14.5); Red Blood Cell (RBC) Count 3.44 mill/uL (4.70-6.10); White Blood Cell (WBC) Count 14.6 thou/uL (4.8-10.8)
[2018-09-02 05:38] LABS: ALT (SGPT) 476 U/L (8-55); AST (SGOT) 624 U/L (5-34); Albumin 3.2 g/dL (3.4-4.8); Alkaline Phosphatase 80 U/L (40-150); Anion Gap 10 mmol/L (10-20); BUN (Urea Nitrogen) 44 mg/dL (8.4-25.7); Bilirubin, Total 1.3 mg/dL (0.2-1.2); Calc. Creatinine Clearance 37 mL/min (70-130); Calcium 8.4 mg/dL (7.8-10.44); Carbon Dioxide 36 mmol/L (23-31); Chloride 88 mmol/L (98-107); Estimated GFR-MDRD 26; Globulin 2.1 g/dL (2.4-3.5); Glucose 140 mg/dL (83-110); Potassium 3.6 mmol/L (3.5-5.1); Protein, Total 5.3 g/dL (5.8-8.1); Sodium 130 mmol/L (136-145)
[2018-09-02] MEDS: Saccharomyces boulardii 250 MG CAP PO SCH (08:04)
[2018-09-02] MEDS: Polyethylene Glycol 3350 17 GM Packet PO SCH (08:04)
[2018-09-02] MEDS: Carvedilol 6.25 MG TAB PO SCH ×2 (08:04→20:50)
[2018-09-02] MEDS: Tamsulosin HCl 0.4 MG CAP PO SCH (08:04)
[2018-09-02] MEDS: Aspirin Chewable 81 MG TAB PO SCH (08:04)
[2018-09-02] MEDS: Atorvastatin Calcium 10 MG TAB PO SCH (08:05)
[2018-09-02] MEDS: Furosemide 40 MG/4 ML VIAL SLOW IVP SCH (08:05)
[2018-09-02] MEDS: Diabetic Tussin 200 MG/10 ML UDCUP PO PRN ×3 (08:53→23:31)
[2018-09-02] MEDS ORDERED: Potassium Chloride 20 MEQ TAB PO SCH (10:00)
--- NOTE | 2018-09-02 10:04 | PRG ---
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 This was a hemodynamically - mediated renal dysfunction secondary to his cardiac tamponade and decreased EF. He is much improved with the placement of a pericardial window. He was also noted to have an elevated LFT, which is now clinically much improved. Our feeling is that this could be a passive liver congestion. He currently is on diuretic. He has also was found to have a hypoechoic pancreatic mass, which is chronic in nature and is being followed up by his oncologist. No other complaints today. No acute events. OBJECTIVE: VITAL SIGNS: Blood pressure 119/65, heart rate 79, respiratory rate 22, and pulse ox 97%. GENERAL: The patient is sleeping, comfortable, arousable, not in distress. SKIN: Adequate turgor. HEENT: He has a pinkish conjunctivae. Anicteric sclerae. NECK: No neck mass. No carotid bruits. No JVD. CHEST: No deformities. LUNGS: Clear breath sounds. No wheezing. No crackles. HEART: Normal sinus rhythm. No murmur. No gallops. No rubs. ABDOMEN: Globular, soft, and nontender. No masses. EXTREMITIES: No edema. MEDICATIONS: Medications of September 02, 2018, was reviewed. LABORATORY DATA: Laboratories of September 02, 2018, white count 14.6 and hemoglobin 9.8. Sodium 130, potassium 3.6, chloride 88, carbon dioxide 36, BUN 44, creatinine 2.37, calcium 8.4, AST 624, ALT 476, and albumin 3.2. ASSESSMENT AND PLAN: 1. Cardiac tamponade/large pericardial effusion - stable. The patient is doing well. He is asymptomatic. He is status post pericardial window placement. 2. Acute kidney injury on top of his chronic renal failure, much improved creatinine with stabilization of his hemodynamics. 3. Acute liver dysfunction - LFT is improving spontaneously. Consider the possibility of passively liver congestion. 4. Chronic pancreatic mass - followed up by his oncologist. Overall agree with current management. There is no indication for any dialytic intervention. Job ID: [id number]
--- NOTE | 2018-09-02 10:10 | PDOC.PN ---
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 He is sitting up in a chair. He does not have any complaints. He is feeling weak today. He denies any dyspnea. - Objective Resuscitation Status - Order Detail: 08/30/18 13:55 Resuscitation Status Routine Resuscitation Status: FULL: Full Resuscitation MAR Reviewed: Yes Vital Signs & Weight: Vital Signs (12 hours) Temp BP Pulse Ox 09/02/18 08:04 105/57 L 09/02/18 07:23 95 09/02/18 07:00 99.1 F 09/02/18 04:00 98.3 F 95 Weight Admit Weight 243 lb 6.245 oz Weight 237 lb 10.533 oz Most Recent Monitor Data Heart Rate from ECG 79 NIBP 119/65 NIBP BP-Mean 83 Respiration from ECG 22 SpO2 97 I&O: 09/01/18 09/02/18 09/03/18 06:59 06:59 06:59 Intake Total 3475 1420 100 Output Total 4070 5645 470 Balance -595 -4225 -370 Result Diagrams: 09/02/18 04:50 09/02/18 04:50 Additional Labs: Accuchecks 09/02/18 09/01/18 09/01/18 04:47 21:06 17:25 POC Glucose 154 H 182 H 185 H 09/01/18 11:51 POC Glucose 182 H Phys Exam - Physical Examination HEENT: PERRLA Respiratory: no wheezing, no rales, no rhonchi + decreased breath sounds at the bases Cardiovascular: RRR, no significant murmur, no rub Gastrointestinal: soft, non-tender, no distention, positive bowel sounds Musculoskeletal: pulses present, edema present trace pedal edema bilaterally Dx/Plan (1) Cardiac tamponade Code(s): I31.4 - CARDIAC TAMPONADE Status: Acute Comment: s/p pericardial window with 1.5L removed and Herminio drain placement, continue critical monitoring , supportive mgmt (2) [id number] kidney injury Code(s): N17.9 - ACUTE KIDNEY FAILURE, UNSPECIFIED; N18.9 - CHRONIC KIDNEY DISEASE, UNSPECIFIED Status: Acute (3) Atrial fibrillation Code(s): I48.91 - UNSPECIFIED ATRIAL FIBRILLATION Status: Chronic Qualifiers: Atrial fibrillation type: paroxysmal Qualified Code(s): I48.0 - Paroxysmal atrial fibrillation Comment: s/p cardiac ablation with return of SR, current SR (4) Diabetes mellitus type 2 in nonobese Code(s): E11.9 - TYPE 2 DIABETES MELLITUS WITHOUT COMPLICATIONS Status: Chronic (5) Hypertension Code(s): I10 - ESSENTIAL (PRIMARY) HYPERTENSION Status: Chronic (6) Hyponatremia Code(s): E87.1 - HYPO-OSMOLALITY AND HYPONATREMIA Status: Chronic Comment: Likely due to volume overload, improved, serial Na+ - Plan * Cardiac Tamponade- s/p Pericardial window- clinically stable * Acute on chronic heart failure with preserved EF- continue Diureses with Lasix * Acute on chronic kidney injury- improved- continue as per Nephrology * AFIB- his heart rate is controlled- Xarelto is on hold * Hyponatremia- improving- likely from volume overload * DM- blood glucose is stable. * HTN- blood pressure is stable * Deconditioning- agree with PT * Replace potassium
--- NOTE | 2018-09-02 10:15 | PRG ---
DATE OF SERVICE: 09/02/2018 SERVICE: Pulmonary Medicine. INTERVAL HISTORY: The patient is doing absolutely wonderful from respiratory standpoint. Kidney function is improved. His urine output is excellent. He denies any current chest pain, fevers, or chills. Otherwise, there has been no interval change to his condition. PHYSICAL EXAMINATION: VITAL SIGNS: Afebrile, pulse 79, blood pressure 119/65, respirations 22, and saturation 97% on 2 L nasal cannula. GENERAL: The patient is awake and alert, in no apparent distress. LUNGS: Minimal crackles are present. There is no prolonged expiratory phase, wheezing, or rhonchi present. HEART: Normal rate, regular. ABDOMEN: Soft, nontender, and nondistended. Bowel sounds are positive. MUSCULOSKELETAL: No cyanosis or clubbing. There is 1+ pitting at the hips. No pitting in bilateral lower extremities any longer. GENITOURINARY: No Briscoe. NEUROLOGIC: Grossly nonfocal. LABORATORY DATA: WBC 14.6, hemoglobin 9.8, and platelets 291,000. Sodium 130 and uptrending, potassium 3.6, creatinine 2.37 and beautifully downtrending from 3.1, BUN 44, bicarb 36, and chloride 88. AST and ALT have precipitously improved. Body fluid culture remains negative. Pathology was negative for malignant cells. ASSESSMENT: 1. Acute hypoxic respiratory failure, resolving. 2. Cardiac tamponade, status post pericardial window, postop day #2. 3. Acute kidney injury, significantly improved. 4. Shock liver secondary to passive congestion, resolving. 5. Hyponatremia, improving. 6. Contraction alkalosis. 7. History of lung cancer. 8. Pancreatic mass. DISCUSSION AND PLAN: I will back off on our diuretics to once daily as he has developed a contraction alkalosis. I do not want to prevent any prerenal issues. He remains slightly volume overloaded, but I do not think we need to be in any lewis to get this fluid off at this moment. We will focus on mobilization efforts. I will check a magnesium with tomorrow morning's laboratories, and replace his potassium. The patient would prefer to stay in the ICU for an additional day, which we are going to abide by. Job ID: [id number]
--- NOTE | 2018-09-02 15:36 | PRG ---
DATE OF SERVICE: 09/02/2018 SUBJECTIVE: Mr. Perez seems to be doing better today. He denies chest pains. He is sitting up in a chair. No new complaints. Feeling a little weak. Denies dyspnea. His chest tube was removed today. OBJECTIVE: VITAL SIGNS: Blood pressure is 105/57, heart rate is 79, respirations 12, temperature 99.1 degrees Fahrenheit. GENERAL: He is alert and oriented man, in no apparent distress. NECK: Supple. Jugular veins not distended. CHEST: Coarse without crackles. HEART: Sounds are regular to rate and rhythm. No murmur or gallop. No rub is appreciated. ABDOMEN: Benign. Chest tube site is without reaction in bandages. EXTREMITIES: Lower extremities without edema, clubbing, or cyanosis. LABORATORY DATA: White cell count is decreasing at 14.6; hemoglobin 9.8, stable; platelet count is 291. Sodium 130, potassium 3.6, BUN is 44, creatinine 2.37. Telemetry strips reviewed revealing continued sinus rhythm. ASSESSMENT AND PLAN: Mr. Perez is a pleasant 83-year-old man, who has a history of sustained atrial fibrillation and flutter. He underwent pulmonary venous isolation and CTI ablation on 08/22/2018. He had diastolic heart failure, which prompted him to be rehospitalized in 2 days of his ablation. Echo at that point revealed no pericardial effusion and he stabilized with diuretics. He continued on anticoagulant. Subsequently, he was readmitted on the with progressive dyspnea. Abdominal discomfort. While on monitoring, he became progressively hypotensive and an echocardiogram revealed pericardial tamponade and large pericardial effusion. He underwent a pericardial window placement and 1500 mL of bloody fluid was drained. His chest tubes stopped draining and removed today. He is stable for both hemodynamically and from the rhythm standpoint. Creatinine is now improving. He had also marked abnormal LFTs likely due to shock liver with the hypertension is also trending to normal range. He still has lower sodium, but is improved from before. PLAN: At this point, I agree with the current management. Continue monitoring for recurrence of pericardial effusion. Consider restarting low-dose anticoagulant if clinically tolerated once the renal and liver function are improved. Possibly empiric treatment for pericarditis could be also considered with colchicine once liver function normalized. If symptomatic, anti-inflammatory agents also could be used. Job ID: [id number]
[2018-09-02] MEDS: HumaLOG 300 UNITS/3 ML VIAL SC PRN ×2 (17:15→20:49)
[2018-09-02] MEDS: Insulin Glargine 25 UNITS in Pre-Filled Syringe SC SCH (20:49)
[2018-09-02] MEDS: Zolpidem Tartrate 5 MG TAB PO PRN (20:52)
[2018-09-03 04:46] LABS: Anion Gap 10 mmol/L (10-20); BUN (Urea Nitrogen) 32 mg/dL (8.4-25.7); Calc. Creatinine Clearance 51 mL/min (70-130); Calcium 8.5 mg/dL (7.8-10.44); Carbon Dioxide 37 mmol/L (23-31); Chloride 88 mmol/L (98-107); Estimated GFR-MDRD 40; Glucose 127 mg/dL (83-110); Magnesium 1.8 mg/dL (1.6-2.6); Sodium 131 mmol/L (136-145)
[2018-09-03 04:51] LABS: Phosphorus 2.2 mg/dL (2.3-4.7)
[2018-09-03] MEDS: Carvedilol 6.25 MG TAB PO SCH ×2 (08:28→21:13)
[2018-09-03] MEDS: Tamsulosin HCl 0.4 MG CAP PO SCH ×2 (08:28→08:29)
[2018-09-03] MEDS: Saccharomyces boulardii 250 MG CAP PO SCH (08:29)
[2018-09-03] MEDS: Atorvastatin Calcium 10 MG TAB PO SCH (08:29)
[2018-09-03] MEDS: Polyethylene Glycol 3350 17 GM Packet PO SCH (08:30)
[2018-09-03] MEDS: Aspirin Chewable 81 MG TAB PO SCH (08:30)
[2018-09-03] MEDS: Furosemide 40 MG/4 ML VIAL SLOW IVP SCH (08:30)
--- NOTE | 2018-09-03 09:19 | PRG ---
DATE OF SERVICE: 09/03/2018 SUBJECTIVE: Fr. Perez is an 83-year-old white male, who was seen by the Renal Service for his acute kidney injury on top of his chronic renal failure. He was admitted due to significant pericardial effusion. He underwent an emergent pericardial window placement. Since that time, renal function has been stabilizing. His creatinine is now back to baseline. He voices no new complaints. He is feeling better. He denies any chest pain or shortness of breath. His appetite is much improved. OBJECTIVE: VITAL SIGNS: Blood pressure is 124/75, heart rate 81, respiratory rate 12, and pulse ox 92%. GENERAL: Awake, alert, comfortable, not in distress. SKIN: Adequate turgor. HEENT: He has pinkish conjunctivae. Anicteric sclerae. NECK: No neck mass. No carotid bruits. No JVD. CHEST: No deformities. LUNGS: Clear breath sounds. HEART: Normal sinus rhythm. No murmurs. No gallops. No rubs. ABDOMEN: Globular, soft, and nontender. No masses. EXTREMITIES: No edema. No deformities. MEDICATIONS: Medications of September 03, 2018, was reviewed. LABORATORY DATA: Laboratories of September 03, 2018; sodium 131, potassium 4, chloride 88, carbon dioxide 37, BUN is 22, creatinine 1.66, glucose 127, calcium 8.5, and magnesium is 1.8. Phosphorus is 2.2. On September 02, 2018; white count 14.6, hemoglobin 9.8. ASSESSMENT AND PLAN: 1. Acute kidney injury/chronic renal failure - superimposed prerenal azotemia, much improved. The patient tolerating current diuretic regimen. Consider changing IV Lasix to p.o. Lasix. If needed, we can adjust this if becomes worse. 2. Metabolic alkalosis - consideration that this could be a reflection of volume contraction. Adjust diuretics as needed. 3. Hyponatremia. Underlying history of syndrome of inappropriate antidiuretic hormone secretion, stable serum sodium. No indication for any tolvaptan today. 4. Pericardial effusion - the patient is status post placement of pericardial window. Doing well overall. Please note, cytology of his pericardial fluid showed no malignant cells. Overall, agree with current management. Job ID: [id number]
--- NOTE | 2018-09-03 10:26 | PDOC.CTH ---
Cardiology Progress Note - Subjective He is doing very well. Pericardial drain taken out 2 days ago and his BP has remained stable since. No new issues. - Objective Vital Signs Temp BP Pulse Ox 09/03/18 08:28 124/75 09/03/18 08:00 97.9 F 95 09/03/18 04:07 94 L 09/03/18 04:00 98.4 F 09/03/18 00:00 98.5 F Admit Weight 243 lb 6.245 oz Weight 226 lb 10.163 oz 09/02/18 09/03/18 09/04/18 06:59 06:59 06:59 Intake Total 1420 800 100 Output Total 5645 4145 630 Balance -2419 -6255 -530 - Physical Examination General/Neuro: alert & oriented x3, NAD Neck: no JVD present Lungs: CTA, unlabored respirations Heart: RRR, other: (Grade 3 dolosystolic at apex.) Abdomen: NT/ND Extremities: + edema B (1+) - Telemetry Telemetry Rhythm: NSR - Labs Result Diagrams: 09/02/18 04:50 09/03/18 04:15 - Assessment/Plan 1. Tamponade, s/p drain. 2. S/P Afib/Aflutter ablation 3. Diastolic heart failure. 4. GUTIERREZ on CKD, improved. PLAN - Switch to PO lasix. - Continue other meds. - May transfer to [facility] at any point from cardiac perspective.
[2018-09-03] MEDS ORDERED: Mag-Al 1200 mg/1200 mg/30 ML UDCUP PO PRN (10:40)
--- NOTE | 2018-09-03 10:56 | PRG ---
DATE OF SERVICE: 09/03/2018 SERVICE: Pulmonary Medicine. INTERVAL HISTORY: The patient is doing outstanding from respiratory standpoint. He is breathing comfortably. He has no complaints of chest discomfort, nausea, vomiting. He is having some severe indigestion and is requesting some Maalox. Will oblige. Otherwise, there has been no interval change to his condition. PHYSICAL EXAMINATION: VITAL SIGNS: Afebrile. Pulse 79, pressure 113/60, respirations 19, saturation 91% on room air. GENERAL: The patient is awake and alert, in no apparent distress. LUNGS: Excellent air entry with no prolonged expiratory phase. Dependent crackles are noted. No wheezing or rhonchi. HEART: Normal rate and regular. ABDOMEN: Soft, nontender, nondistended. Bowel sounds are positive. MUSCULOSKELETAL: No cyanosis or clubbing. There is still 1+ pitting in the bilateral lower extremities. NEUROLOGIC: Grossly nonfocal. LABORATORY DATA: WBC 14.6, hemoglobin 9.8, platelets 291,000. Potassium 4.0, sodium is up-trending to 131. Creatinine has improved to 1.66. Basic metabolic profile is otherwise unremarkable. Phosphorus is 2.2. Body fluid culture is unremarkable. ASSESSMENT: 1. Acute hypoxic respiratory failure, improving. 2. Cardiac tamponade, status post pericardial window, postop day 3. 3. Recent ablation surgery. 4. Acute kidney injury, resolving. 5. Shock liver secondary to hepatic congestion, resolved. 6. Hypokalemia, improving. 7. History of lung cancer. 8. Pancreatic mass. DISCUSSION AND PLAN: I will replace his phosphorus. We will give the Maalox per request. We will also put him on an H2 dalton. Pulmonary/Critical Care will continue to follow along while the patient remains in the ICU. We will probably keep him here until discharge. Job ID: [id number]
[2018-09-03] MEDS ORDERED: Mag-Al 1200 mg/1200 mg/30 ML UDCUP PO SCH (11:00)
[2018-09-03] MEDS ORDERED: Potassium Phosphate 15 MMOL in Sodium Chloride 0.9% 250 ML 250 ML IVPB SCH (11:15)
[2018-09-03] MEDS: HumaLOG 300 UNITS/3 ML VIAL SC PRN ×3 (12:20→21:17)
--- NOTE | 2018-09-03 14:47 | PDOC.PN ---
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 He says he feels better this morning. He denies chest pain or shortness of breath. He has walked some with PT. - Objective Resuscitation Status - Order Detail: 08/30/18 13:55 Resuscitation Status Routine Resuscitation Status: FULL: Full Resuscitation MAR Reviewed: Yes Vital Signs & Weight: Vital Signs (12 hours) Temp Pulse Pulse BP BP BP Pulse Ox 09/03/18 12:58 81 79 134/74 127/69 09/03/18 12:00 98.4 F 09/03/18 08:54 82 78 137/78 131/69 09/03/18 08:28 124/75 09/03/18 08:00 97.9 F 95 09/03/18 04:07 94 L 09/03/18 04:00 98.4 F Pulse Ox Pulse Ox 09/03/18 12:58 97 09/03/18 12:00 09/03/18 08:54 96 93 L 09/03/18 08:28 09/03/18 08:00 09/03/18 04:07 09/03/18 04:00 Weight Admit Weight 243 lb 6.245 oz Weight 226 lb 10.163 oz Most Recent Monitor Data Heart Rate from ECG 78 NIBP 128/72 NIBP BP-Mean 90 Respiration from ECG 18 SpO2 97 I&O: 09/02/18 09/03/18 09/04/18 06:59 06:59 06:59 Intake Total 1420 800 430 Output Total 5674 4145 2235 Balance -4225 -3345 -1805 Result Diagrams: 09/02/18 04:50 09/03/18 04:15 Phys Exam - Physical Examination HEENT: PERRLA Respiratory: no wheezing, no rales, no rhonchi, clear to auscultation bilateral Cardiovascular: RRR, no significant murmur, no rub Gastrointestinal: soft, positive bowel sounds + mild distention, and tympanic to percussion Musculoskeletal: edema present trace pedal edema Dx/Plan (1) Cardiac tamponade Code(s): I31.4 - CARDIAC TAMPONADE Status: Acute Comment: s/p pericardial window with 1.5L removed and Herminio drain placement, continue critical monitoring , supportive mgmt (2) Gxyku-ar-lyafwwi kidney injury Code(s): N17.9 - ACUTE KIDNEY FAILURE, UNSPECIFIED; N18.9 - CHRONIC KIDNEY DISEASE, UNSPECIFIED Status: Acute (3) Atrial fibrillation Code(s): I48.91 - UNSPECIFIED ATRIAL FIBRILLATION Status: Chronic Qualifiers: Atrial fibrillation type: paroxysmal Qualified Code(s): I48.0 - Paroxysmal atrial fibrillation Comment: s/p cardiac ablation with return of SR, current SR (4) Diabetes mellitus type 2 in nonobese Code(s): E11.9 - TYPE 2 DIABETES MELLITUS WITHOUT COMPLICATIONS Status: Chronic (5) Hypertension Code(s): I10 - ESSENTIAL (PRIMARY) HYPERTENSION Status: Chronic (6) Hyponatremia Code(s): E87.1 - HYPO-OSMOLALITY AND HYPONATREMIA Status: Chronic Comment: Likely due to volume overload, improved, serial Na+ - Plan * Cardiac Tamponade- he is s/p pericardial window * Acute on chronic diastolic heart failure- He has diuresed well, and Lasix has been changed to p.o. * DM- blood glucose is stable * HTN- blood pressure is stable * AFIB- heart rate is stable- anticoagulation is on HOLD- will restart when ok with Cardiology- CV- Surgery
[2018-09-03] MEDS: Diabetic Tussin 200 MG/10 ML UDCUP PO PRN (17:20)
[2018-09-03] MEDS: Zolpidem Tartrate 5 MG TAB PO PRN (21:14)
[2018-09-03] MEDS: Insulin Glargine 25 UNITS in Pre-Filled Syringe SC SCH (21:14)
[2018-09-04] MEDS: HumaLOG 300 UNITS/3 ML VIAL SC PRN ×4 (05:31→20:46)
[2018-09-04 05:53] LABS: Anion Gap 8 mmol/L (10-20); BUN (Urea Nitrogen) 24 mg/dL (8.4-25.7); Calc. Creatinine Clearance 55 mL/min (70-130); Calcium 8.7 mg/dL (7.8-10.44); Carbon Dioxide 36 mmol/L (23-31); Chloride 87 mmol/L (98-107); Estimated GFR-MDRD 45; Glucose 220 mg/dL (83-110); Potassium 4.3 mmol/L (3.5-5.1); Sodium 127 mmol/L (136-145)
[2018-09-04] MEDS: Famotidine 20 MG TAB PO SCH (08:37)
[2018-09-04] MEDS: Tamsulosin HCl 0.4 MG CAP PO SCH (08:38)
[2018-09-04] MEDS: Aspirin Chewable 81 MG TAB PO SCH (08:38)
[2018-09-04] MEDS: Saccharomyces boulardii 250 MG CAP PO SCH (08:39)
[2018-09-04] MEDS: Carvedilol 6.25 MG TAB PO SCH ×2 (08:40→20:46)
--- NOTE | 2018-09-04 08:41 | PRG ---
DATE OF SERVICE: 09/04/2018 SERVICE: Pulmonary Medicine. INTERVAL HISTORY: The patient is doing outstanding from mentation standpoint. Denies any current chest pain, fevers, or chills. Otherwise, there has been no interval change to his condition. His strength is improving. He walked with physical therapy 3 times yesterday. PHYSICAL EXAMINATION: VITAL SIGNS: Afebrile, pulse 81, blood pressure 118/62, respirations 17, and saturation 97% on 2 L nasal cannula. HEENT: Normocephalic and atraumatic. Sclerae are white. Conjunctivae are pink. Oral mucosa is moist without lesions. LUNGS: Decent air entry with no prolonged expiratory phase or wheezing. HEART: Normal rate, regular. ABDOMEN: Soft, nontender, and nondistended. Bowel sounds are positive. MUSCULOSKELETAL: No cyanosis or clubbing. No pitting in bilateral lower extremities. NEUROLOGIC: Grossly nonfocal. LABORATORY DATA: Sodium 127, bicarb 36 and roughly stable, chloride 87, and creatinine 1.48 and improving. Basic metabolic profile is otherwise unremarkable. Body fluid culture is unremarkable. Cytology on the pericardial fluid is negative. ASSESSMENT: 1. Acute hypoxic respiratory failure, resolved. 2. Cardiac tamponade, status post pericardial window, postop day 4. 3. Recent atrial ablation. 4. Acute kidney injury on chronic kidney disease, stage 3, resolved to baseline. 5. Shock liver secondary to hepatic congestion, resolved. 6. History of lung cancer. 7. Pancreatic mass. DISCUSSION AND PLAN: We will continue supportive care. If the patient is stable by tomorrow, and his laboratories continue to improve, he could be considered for transition out of the hospital. I will repeat all laboratories in the morning. Pulmonary/Critical Care will continue to follow along while he remains in this location. We will continue to mobilize the patient as tolerated. We have free water restriction for the low sodium. Hopefully, this will start to respond. I will back off on his Lasix as he is approaching euvolemia. Job ID: [id number]
[2018-09-04] MEDS ORDERED: Furosemide 40 MG TAB PO SCH (09:00)
[2018-09-04] MEDS: Atorvastatin Calcium 10 MG TAB PO SCH (09:03)
[2018-09-04] MEDS: Polyethylene Glycol 3350 17 GM Packet PO SCH (09:03)
--- NOTE | 2018-09-04 12:41 | PDOC.PN ---
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 He does not have any complaints. He still feels weak, but denies chest pain or dyspnea. He walked some yesterday, and is preparing to walk this morning. - Objective Resuscitation Status - Order Detail: 08/30/18 13:55 Resuscitation Status Routine Resuscitation Status: FULL: Full Resuscitation MAR Reviewed: Yes Vital Signs & Weight: Vital Signs (12 hours) Temp BP Pulse Ox 09/04/18 08:40 131/70 09/04/18 08:00 96 09/04/18 04:00 98.4 F Weight Admit Weight 243 lb 6.245 oz Weight 227 lb 4.745 oz Most Recent Monitor Data Heart Rate from ECG 80 NIBP 116/69 NIBP BP-Mean 84 Respiration from ECG 18 SpO2 95 I&O: 09/03/18 09/04/18 09/05/18 06:59 06:59 06:59 Intake Total 800 930 400 Output Total 4145 3885 600 Balance -3345 -2955 -200 Result Diagrams: 09/02/18 04:50 09/04/18 05:15 Additional Labs: Accuchecks 09/04/18 09/03/18 09/03/18 11:23 21:11 17:21 POC Glucose 265 H 231 H 225 H 09/03/18 09/03/18 09/02/18 12:18 05:39 20:49 POC Glucose 183 H 131 H 215 H 09/02/18 09/02/18 17:12 12:19 POC Glucose 203 H 212 H Phys Exam - Physical Examination HEENT: PERRLA Respiratory: no wheezing, no rales, no rhonchi, clear to auscultation bilateral Cardiovascular: RRR, no significant murmur, no rub Gastrointestinal: soft, non-tender, positive bowel sounds + mildly distended Musculoskeletal: pulses present, edema present Dx/Plan (1) Cardiac tamponade Code(s): I31.4 - CARDIAC TAMPONADE Status: Acute Comment: s/p pericardial window with 1.5L removed and Herminio drain placement, continue critical monitoring , supportive mgmt (2) Sccqq-te-vcoexip kidney injury Code(s): N17.9 - ACUTE KIDNEY FAILURE, UNSPECIFIED; N18.9 - CHRONIC KIDNEY DISEASE, UNSPECIFIED Status: Acute (3) Atrial fibrillation Code(s): I48.91 - UNSPECIFIED ATRIAL FIBRILLATION Status: Chronic Qualifiers: Atrial fibrillation type: paroxysmal Qualified Code(s): I48.0 - Paroxysmal atrial fibrillation Comment: s/p cardiac ablation with return of SR, current SR (4) Diabetes mellitus type 2 in nonobese Code(s): E11.9 - TYPE 2 DIABETES MELLITUS WITHOUT COMPLICATIONS Status: Chronic (5) Hypertension Code(s): I10 - ESSENTIAL (PRIMARY) HYPERTENSION Status: Chronic (6) Hyponatremia Code(s): E87.1 - HYPO-OSMOLALITY AND HYPONATREMIA Status: Chronic Comment: Likely due to volume overload, improved, serial Na+ - Plan * Cardiac Tamponade- s/p pericardial window- improved * Acute on chronic diastolic heart failure- improved- continue Lasix * DM- blood glucose is a bit elevated- will re-start Januvia in the AM- continue SSI * Hyponatremia- his sodium is a bit lower today- he has a history of SIADH- will defer to Nephrology * CKD- renal function remains stable * Ambulate .
--- NOTE | 2018-09-04 16:20 | PDOC.CTH ---
Cardiology Progress Note - Subjective No new issues. Resting comfortably. - Objective Vital Signs Pulse Pulse BP BP BP Pulse Ox Pulse Ox 09/04/18 12:52 82 79 122/66 118/66 98 09/04/18 10:15 89 84 143/62 H 115/68 97 09/04/18 08:40 131/70 09/04/18 08:00 96 Pulse Ox 09/04/18 12:52 97 09/04/18 10:15 95 09/04/18 08:40 09/04/18 08:00 Admit Weight 243 lb 6.245 oz Weight 227 lb 4.745 oz 09/03/18 09/04/18 09/05/18 06:59 06:59 06:59 Intake Total 800 930 600 Output Total 4141 3885 1250 Balance -6845 -4742 -247 - Physical Examination General/Neuro: alert & oriented x3, NAD Neck: no JVD present Lungs: CTA, unlabored respirations Heart: RRR Abdomen: NT/ND Extremities: + edema B (trace) - Telemetry Telemetry Rhythm: NSR - Labs Result Diagrams: 09/02/18 04:50 09/04/18 05:15 - Assessment/Plan 1. Tamponade, s/p drain. 2. S/P Afib/Aflutter ablation 3. Diastolic heart failure. 4. GUTIERREZ on CKD, improved. PLAN - On PO lasix. - Continue other meds.
--- NOTE | 2018-09-04 18:28 | PRG ---
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 He is status post pericardial window placement with much improvement with his hemodynamics. He was also seen by the Renal Service for his acute kidney injury. Creatinine is much improved. No other complaints today. No complaints of chest pain or shortness of breath. OBJECTIVE: VITAL SIGNS: Blood pressure is 106/64, heart rate 81, respiratory rate 21, and pulse ox 96%. GENERAL: Awake, sitting comfortable, not in distress. SKIN: Adequate turgor. HEENT: Pinkish conjunctivae. Anicteric sclerae. NECK: No neck mass. No carotid bruits. No JVD. CHEST: No deformities. LUNGS: Clear breath sounds. No wheezing. No crackles. HEART: Normal sinus rhythm. No murmur. No gallops. No rubs. ABDOMEN: Globular, soft, nontender. No masses. EXTREMITIES: No edema. No deformities. MEDICATIONS: Medications of September 04, 2018, reviewed. LABORATORY DATA: On September 04, 2018, sodium 127, potassium 4.3, chloride 87, carbon dioxide 36, BUN 24, creatinine 1.48, glucose 220, and calcium 8.7. ASSESSMENT AND PLAN: 1. Acute kidney injury/chronic renal failure. Stabilizing renal function. Creatinine is actually improved when compared during the initial admission where the creatinine was said to have been noted to as high as 3.5. No indication for any dialytic intervention. 2. Congestive heart failure-currently on Lasix. I have adjusted the Lasix downwards from 40 to 20 mg tablet once a day. 3. Mild hyponatremia. Continue to observe. Continue free water restriction. 4. Metabolic alkalosis. This may be a reflection of a mild volume contraction with this patient. Adjust Lasix. Overall agree with current management. Job ID: [id number]
[2018-09-04] MEDS: Insulin Glargine 25 UNITS in Pre-Filled Syringe SC SCH (20:45)
[2018-09-04] MEDS: Zolpidem Tartrate 5 MG TAB PO PRN (20:46)
[2018-09-05 05:40] LABS: #Eosinphils 0.3 thou/uL (0.0-0.7); #Lymphocytes 1.4 thou/uL (1.20-3.40); #Monocytes 1.3 thou/uL (0.11-0.59); #Neutrophils 7.6 thou/uL (1.40-6.50); %Basophils 0.3 % (0.0-1.0); %Eosinophils 3.1 % (0.0-10.0); %Lymphocytes 12.6 % (21.0-51.0); %Monocytes 12.4 % (0.0-10.0); %Neutrophils 71.5 % (42.0-75.0); Hemoglobin 10.5 g/dL (14.0-18.0); Mean Corpuscular HGB CONC 31.8 g/dL (32.0-36.0); Mean Corpuscular Hemoglobin 27.3 pg (27.0-31.0); Mean Corpuscular Volume 85.8 fL (78.0-98.0); Mean Platelet Volume 8.3 fL (7.4-10.4); Platelet Count 339 thou/uL (130-400); RBC Distribution Width 13.4 % (11.5-14.5); Red Blood Cell (RBC) Count 3.84 mill/uL (4.70-6.10); White Blood Cell (WBC) Count 10.6 thou/uL (4.8-10.8)
[2018-09-05] MEDS: HumaLOG 300 UNITS/3 ML VIAL SC PRN ×2 (05:40→12:11)
[2018-09-05 06:35] VITALS: BMI 30.9
[2018-09-05] MEDS ORDERED: Furosemide 20 MG TAB PO SCH (09:00)
[2018-09-05] MEDS ORDERED: Alogliptin 25 MG TAB PO SCH (09:00)
--- NOTE | 2018-09-05 09:52 | PRG ---
DATE OF SERVICE: 09/05/2018 SUBJECTIVE: Fr. Perez is an 83-year-old white male, who was seen by the Renal Service for his acute kidney injury that was hemodynamically-mediated renal dysfunction, which is much improved. Creatinine is stable at 1.48, this was yesterday. We are currently waiting for the next basement. Diuretics have been adjusted. He was also diagnosed with cardiac tamponade and underwent emergent pericardial window placement. No new complaints today. No chest pain or shortness of breath. OBJECTIVE: VITAL SIGNS: Blood pressure is 118/68, heart rate 81, respiratory rate 24, and pulse ox 96%. GENERAL: Awake, alert, sitting comfortable, not in distress. SKIN: Adequate turgor. HEENT: He has pinkish conjunctivae. Anicteric sclerae. NECK: No neck mass. No carotid bruits. No JVD. CHEST: No deformities. LUNGS: Clear breath sounds. HEART: Normal sinus rhythm. No murmur. No gallops. No rubs. ABDOMEN: Globular, soft, and nontender. No masses. EXTREMITIES: No edema. No deformities. MEDICATIONS: Medications of September 05, 2018, reviewed. LABORATORY DATA: Laboratories of September 05, 2018; white count 10.6, hemoglobin 10.5. Basic metabolic panel pending. ASSESSMENT AND PLAN: 1. Acute kidney injury - hemodynamically-mediated renal dysfunction, much improved. Awaiting for repeat basement. Lasix has been adjusted. 2. Mild hyponatremia. Continue free water restriction. 3. Status post cardiac tamponade - much improved with pericardial window placement. This was secondary to pericarditis. Pericardial fluid showed no evidence of malignant cells. Job ID: [id number]
--- NOTE | 2018-09-05 10:04 | PDOC.PN ---
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 He notes a dry cough, but otherwise ok. - Objective Resuscitation Status - Order Detail: 08/30/18 13:55 Resuscitation Status Routine Resuscitation Status: FULL: Full Resuscitation MAR Reviewed: Yes Vital Signs & Weight: Vital Signs (12 hours) Temp 09/05/18 04:00 98.6 F 09/05/18 00:00 98.7 F Weight Admit Weight 243 lb 6.245 oz Weight 227 lb 15.327 oz Most Recent Monitor Data Heart Rate from ECG 81 NIBP 118/68 NIBP BP-Mean 84 Respiration from ECG 4 SpO2 96 I&O: 09/04/18 09/05/18 09/06/18 06:59 06:59 06:59 Intake Total 930 1000 Output Total 3885 2450 Balance -7797 -8759 Result Diagrams: 09/05/18 05:30 09/04/18 05:15 Additional Labs: Accuchecks 09/05/18 09/04/18 09/04/18 05:35 20:37 16:16 POC Glucose 216 H 207 H 244 H 09/04/18 09/04/18 11:23 05:23 POC Glucose 265 H 227 H Phys Exam - Physical Examination HEENT: PERRLA Respiratory: no wheezing, no rales, no rhonchi, clear to auscultation bilateral Cardiovascular: RRR, no significant murmur, no rub Gastrointestinal: soft, non-tender, no distention, positive bowel sounds Musculoskeletal: no edema, pulses present Dx/Plan (1) Cardiac tamponade Code(s): I31.4 - CARDIAC TAMPONADE Status: Acute Comment: s/p pericardial window with 1.5L removed and Herminio drain placement, continue critical monitoring , supportive mgmt (2) Wyfyh-rs-cuegeiq kidney injury Code(s): N17.9 - ACUTE KIDNEY FAILURE, UNSPECIFIED; N18.9 - CHRONIC KIDNEY DISEASE, UNSPECIFIED Status: Acute (3) Atrial fibrillation Code(s): I48.91 - UNSPECIFIED ATRIAL FIBRILLATION Status: Chronic Qualifiers: Atrial fibrillation type: paroxysmal Qualified Code(s): I48.0 - Paroxysmal atrial fibrillation Comment: s/p cardiac ablation with return of SR, current SR (4) Diabetes mellitus type 2 in nonobese Code(s): E11.9 - TYPE 2 DIABETES MELLITUS WITHOUT COMPLICATIONS Status: Chronic (5) Hypertension Code(s): I10 - ESSENTIAL (PRIMARY) HYPERTENSION Status: Chronic (6) Hyponatremia Code(s): E87.1 - HYPO-OSMOLALITY AND HYPONATREMIA Status: Chronic Comment: Likely due to volume overload, improved, serial Na+ - Plan * Cardiac Tamponade- s/p window- stable * Chronic diastolic heart failure- stable * DM- blood glucose is a bit elevated but Januvia was just started today * He has been cleared for discharge home.
[2018-09-05] MEDS: Atorvastatin Calcium 10 MG TAB PO SCH (10:26)
[2018-09-05] MEDS: Carvedilol 6.25 MG TAB PO SCH (10:26)
[2018-09-05] MEDS: Aspirin Chewable 81 MG TAB PO SCH (10:26)
[2018-09-05] MEDS: Famotidine 20 MG TAB PO SCH (10:26)
[2018-09-05] MEDS: Polyethylene Glycol 3350 17 GM Packet PO SCH (10:27)
[2018-09-05] MEDS: Saccharomyces boulardii 250 MG CAP PO SCH (10:27)
[2018-09-05] MEDS: Tamsulosin HCl 0.4 MG CAP PO SCH (10:29)
[2018-09-05 10:43] LABS: Anion Gap 9 mmol/L (10-20); BUN (Urea Nitrogen) 18 mg/dL (8.4-25.7); Calc. Creatinine Clearance 53 mL/min (70-130); Carbon Dioxide 32 mmol/L (23-31); Chloride 88 mmol/L (98-107); Estimated GFR-MDRD 43; Glucose 294 mg/dL (83-110); Potassium 4.2 mmol/L (3.5-5.1); Sodium 125 mmol/L (136-145)
[2018-09-05 14:14] VITALS: TEMP 98.9
[2018-09-05 14:26] VITALS: BP 132/63
--- NOTE | 2018-09-05 15:29 | PRG ---
DATE OF SERVICE: 09/05/2018 SERVICE: Pulmonary Medicine. INTERVAL HISTORY: The patient is doing really well from respiratory standpoint. He had been weaned down to room air. He denies any current chest pain, shortness of breath, fevers, or chills. Otherwise, there has been no interval change to his condition. PHYSICAL EXAMINATION: VITAL SIGNS: Afebrile. Pulse 81, blood pressure 120/61, respirations 14, and saturations 98% on room air. GENERAL: The patient is awake and alert, in no apparent distress. LUNGS: Excellent air entry with no prolonged expiratory phase. No wheezing or crackles are present. HEART: Normal rate, regular. ABDOMEN: Soft, nontender, and nondistended. Bowel sounds are positive. MUSCULOSKELETAL: No cyanosis or clubbing. There is trace pitting in the bilateral lower extremities. NEUROLOGIC: Grossly nonfocal. LABORATORY DATA: WBC 10.6, hemoglobin 10.5, platelets 339,000. Creatinine 1.55 and roughly stable. Basic metabolic profile is otherwise unremarkable. Bicarb 32. Sodium 125. Body fluid culture is unremarkable. ASSESSMENT: 1. Acute hypoxic respiratory failure, resolved. 2. Cardiac tamponade, status post pericardial window, postop day #4. 3. Recent atrial ablation. 4. Acute kidney injury on chronic kidney disease 3, resolved to baseline. 5. History of lung cancer. 6. Pancreatic mass. DISCUSSION AND PLAN: The patient is doing fine from respiratory standpoint. At this point, from a purely respiratory standpoint, he is stable for transition out of the hospital. Pulmonary will continue to follow while he remains in-house. Job ID: [id number]
--- NOTE | 2018-09-05 17:08 | EKG ---
Test Reason : Blood Pressure : / mmHG Vent. Rate : 085 BPM Atrial Rate : 085 BPM P-R Int : 214 ms QRS Dur : 094 ms QT Int : 400 ms P-R-T Axes : 043 070 053 degrees QTc Int : 476 ms Sinus rhythm with 1st degree A-V block Low voltage QRS Possible Acute pericarditis Abnormal ECG When compared with ECG of 24-AUG-2018 00:46, Abberant conduction is no longer Present ST elevation now present in Anterior leads Confirmed by DELIA FRANCE (2) on 09/05/2018 5:08:05 PM Referred By: BUNNY Confirmed By:DELIA FRANCE
--- NOTE | 2018-09-05 17:47 | PRG ---
DATE OF SERVICE: 09/05/2018 SUBJECTIVE: Mr. Perez seems to be doing well today. No further palpitations, dizziness, or loss of consciousness. No chest pain. No fever, chills, or cough. He has been able to ambulate over the weekend. OBJECTIVE DATA: VITAL SIGNS: Blood pressure is 120/61, heart rate 80, respirations 18, temperature 98.9 degrees Fahrenheit. GENERAL: Alert and oriented man, in no apparent distress. NECK: Supple. Jugular veins not distended. CHEST: Coarse without crackles. Heart sounds are regular rate and rhythm. No murmur or gallop. The epigastric scars in bandages without reaction. ABDOMEN: Benign. Bowel sounds positive. EXTREMITIES: Lower extremities without edema, clubbing or cyanosis. DATABASE: Hemoglobin today is 10.5, white cell count 10.6, platelet count is 339. Sodium 125, potassium 4.2, BUN is 18, creatinine 1.55. The telemetry strips revealed continued sinus rhythm. No atrial arrhythmias. ASSESSMENT AND PLAN: Mr. Perez is an 83-year-old man with history of persistent atrial arrhythmias, who underwent PVI/CTI ablation in August 22. He had no evidence of pericardial effusion by echocardiogram 2 days after the procedure , but subsequently was readmitted with progressive hypotension and was found to have significant effusion. This could have been secondary to hemorrhagic transformation of pericarditis. He underwent pericardial window placement removing 1500 mL fluid and subsequently had unremarkable recovery. He continued in sinus rhythm without recurrent atrial arrhythmias. The patient currently appears to be stable. It would be not reasonable to resume oral anticoagulants. Monitor for bleeding. We will continue monitoring him for any atrial arrhythmias. Will follow up in the office 2 to 4 weeks. Job ID: [id number] [facility]
--- NOTE | 2018-09-06 03:18 | DIS ---
DATE OF ADMISSION: 08/30/2018 DATE OF DISCHARGE: 09/05/2018 PRIMARY CARE PHYSICIAN: Dr. Saldaña. DISCHARGE DISPOSITION: [facility] in [place]. DISCHARGE DIAGNOSES: 1. Cardiac tamponade. 2. Acute on chronic diastolic heart failure. 3. Atrial flutter status post ablation. 4. Diabetes mellitus type 2. 5. 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 6. History of lung cancer. 7. History of pancreatic mass. DISCHARGE MEDICATIONS: 1. Lasix 20 mg daily and then 40 mg for an increase in weight. 2. Flomax 0.4 mg daily. 3. Carafate 1 g q.i.d. 4. Florastor 250 mg daily. 5. K-Dur 20 mEq daily as well as p.r.n. with the Lasix. 6. Tresiba 25 units subcu at bedtime. 7. Protonix 40 mg daily. 8. Januvia 100 mg daily. 9. Xarelto 15 mg p.o. daily. 10. Claritin 10 mg daily. 11. Furosemide 40 mg daily. 12. Fenofibrate 145 mg daily. 13. Carvedilol 6.25 mg twice a day. 14. Atorvastatin 10 mg daily. 15. Aspirin 81 mg a day. PROCEDURES DONE DURING ADMISSION: The patient had an echocardiogram in which the ejection fraction was estimated at 50% to 55%. There was concentric LVH as well as partial RV collapse and partial right atrial collapse. There was a moderate to large pericardial effusion. The patient had a pericardial window. He also had an abdominal ultrasound showing hepatomegaly, small volume of ascites status post cholecystectomy and hypoechoic pancreatic mass, which was incompletely imaged. CODE STATUS: Full code. ALLERGIES: NO KNOWN DRUG ALLERGIES. HOSPITAL COURSE: Father, Ana is a pleasant 83-year-old gentleman, who was admitted after he was experiencing abdominal pain and shortness of breath. It was initially thought to possibly be of GI origin, but then it was discovered that he had a large pericardial effusion. He was also hyperkalemic and had acute renal failure. These were treated and resolved and for the cardiac tamponade, he underwent pericardial window by Dr. Hernandez. Postoperatively, he was diuresed due to acute on chronic diastolic heart failure, and he lost close to 20 pounds of fluid. He was considerably at the time of discharge, and there was concern that he may not be able to manage himself adequately at home due to the weakness and for this reason, he was discharged to the [facility] [place] for further rehabilitation and physical therapy. Job ID: [id number]
== END 2018-09-05 15:52 | disposition swing bed (61) | DRG 270 ==
LOC: T4-A 12:34 → IMCU/EMU 20:00 → CCU 08-31 08:13
PROVIDERS: ADMIT Internal Medicine; ATTEND Internal Medicine
PROC: 0W9D0ZZ Drainage of Pericardial Cavity, Open Approach (ICD-10-PCS; principal; 2018-08-30)
PROC: B246ZZZ Ultrasonography of Right and Left Heart (ICD-10-PCS; 2018-08-30)
PROC: 02HV33Z Insertion of Infusion Device into Superior Vena Cava, Percutaneous Approach (ICD-10-PCS; 2018-08-31)
DX: I31.4 Cardiac tamponade (principal); J96.01 Acute respiratory failure with hypoxia; K72.00 Acute and subacute hepatic failure without coma; I13.0 Hypertensive heart and chronic kidney disease with heart failure and stage 1 through stage 4 chronic kidney disease, or unspecified chronic kidney disease; N17.9 Acute kidney failure, unspecified; E87.1 Hypo-osmolality and hyponatremia; E87.3 Alkalosis; I50.32 Chronic diastolic (congestive) heart failure; I31.3 Pericardial effusion (noninflammatory); E87.5 Hyperkalemia; E78.5 Hyperlipidemia, unspecified; Z85.118 Personal history of other malignant neoplasm of bronchus and lung; I95.9 Hypotension, unspecified; I48.0 Paroxysmal atrial fibrillation; N18.3 Chronic kidney disease, stage 3 (moderate); D63.1 Anemia in chronic kidney disease; K86.9 Disease of pancreas, unspecified; E11.22 Type 2 diabetes mellitus with diabetic chronic kidney disease
CPT/HCPCS: 36415; 36416; 71045; 74022; 76705; 80048; 80053; 80076; 83735; 84100; 85007; 85025; 85027; 85060; 87070; 87205; 88112; 88305; 89051; 93005; 93010; 93306; 93798; J0670; J1815; J1825; J1940; J2001; J2370; J2405; J2704; J3010; J3475; J3490; J7050; J7070; P9047; Q0162

== ENCOUNTER 2018-12-13 07:17 | Outpatient (CLI) | payer MEDICARE, BC ==
--- NOTE | 2018-12-13 09:25 | CT ---
CT of the chest and abdomen with contrast INDICATION: History of malignant neoplasm of the right lower lung and pancreatic mass COMPARISON: Prior CT of the thorax dated December 13, [address] abdomen and pelvis without contrast date d August 24, 2018 FINDINGS: Post surgical change of right lower lobectomy is stable. Mild scarring within the right mid dle lobe is stable. Small right pleural effusion persists. Left lung is clear. No enlarged mediastinal, hilar or axillary lymph nodes are evident. There are scattered vascular calcifications o f the coronary and thoracic aortic vessels. There is pancreatic body mass is enlarging now measuring 8.1 x 4.4 cm where it measured approximately 7.5 x 4.3 cm on the prior exam. There are stable left renal cysts. Adrenal glands are normal appearing. The gallbladder surgically absent. There are calcified granuloma within the spleen. There is scattered degenerative and osteoarthritic change. No definite acute osseous abnormality is evident. IMPRESSION: 1. No evidence of recurrent disease within the thorax. 2. Enlarging pancreatic body mass.
[2018-12-13] MEDS ORDERED: Iopamidol 370 76% 100 ML VIAL ONE (10:33)
== END 2018-12-13 07:18 | disposition home or self-care (01) ==
LOC: CT 07:17
PROVIDERS: ATTEND Internal Medicine Hematology & Oncology
DX: C34.31 Malignant neoplasm of lower lobe, right bronchus or lung (principal); K86.89 Other specified diseases of pancreas
CPT/HCPCS: 71260; 74160; 82565; Q9967

== ENCOUNTER 2019-03-07 07:34 | Outpatient (CLI) | payer MEDICARE, BC ==
--- NOTE | 2019-03-07 10:17 | CT ---
CT ABDOMEN WITH IV CONTRAST: Date: 03/07/19 INDICATION: 84-year-old male with history of lung cancer and pancreatic mass. COMPARISON: Prior CT of the abdomen and pelvis without contrast dated 08/24/[address] of the chest/abdomen/pelv is dated 07/02/15. CONTRAST: 60 mL [id number] administered. FINDINGS: Since the comparison examination, there has been some improvement in the bilateral pleural effusions. Small right residual pleural effusion remains. There is mild right basilar atelectasis. The heterogeneously enhancing, predominantly hypodense, solid mass involving the pancreatic body is r elatively stable in size to the most recent comparison dated 08/24/18. The lesion on the prior examin ation measured approximately 6.7 x 4.2 x 4.9 cm. On today's measurement, on a similar section, the le rashmi measures 6.6 x 3.9 x 5.0 cm. There is stable mild upstream dilatation of the main pancreatic ky t within the pancreatic tail. No pathologically enlarged lymph nodes are evident within the upper abdomen. The adrenal glands are n ormal appearing. There is a stable left renal cyst. The spleen is normal appearing. The gallbladder i s surgically absent. No new focal hepatic lesion is evident. No free fluid is identified. There is a moderate amount of retained stool within the colon. Visualized small bowel is of normal ca liber. There is scattered degenerative and osteoarthritic change. IMPRESSION: 1. Relatively stable size and appearance to the heterogeneously enhancing solid mass in the main lord creatic body with mild main pancreatic ductal dilatation. Continued follow-up is recommended. 2. Persistent small right pleural effusion, but overall improvement in the pleural effusions when co mpared to the prior CT examination of the abdomen and pelvis. 3. Stable left renal cyst. 4. Moderate amount of retained stool within the colon. POS: OFF
[2019-03-07] MEDS ORDERED: Iopamidol 370 76% 100 ML VIAL ONE (12:45)
[2019-03-07] MEDS ORDERED: Iopamidol 370 76% 50 ML VIAL FS ONE (12:45)
== END 2019-03-07 07:35 | disposition home or self-care (01) ==
LOC: CT 07:34
PROVIDERS: ATTEND Internal Medicine Hematology & Oncology
DX: C34.31 Malignant neoplasm of lower lobe, right bronchus or lung (principal); K86.89 Other specified diseases of pancreas; N28.1 Cyst of kidney, acquired; J90 Pleural effusion, not elsewhere classified
CPT/HCPCS: 74160; 82565; Q9967

== ENCOUNTER 2019-06-30 02:24 | Emergency (ER) | payer MEDICARE, BC ==
[2019-06-30] MEDS ORDERED: Ketorolac Tromethamine 30 MG/ML VIAL ONE (02:42)
== END 2019-06-30 03:13 | disposition home or self-care (01) ==
LOC: ERS 02:24
DX: M54.5 Low back pain (principal); I48.91 Unspecified atrial fibrillation; E78.5 Hyperlipidemia, unspecified; E11.9 Type 2 diabetes mellitus without complications; I10 Essential (primary) hypertension; Z79.899 Other long term (current) drug therapy
CPT/HCPCS: 36415; 80053; 80061; 83036; 85025; 96372; 99283; J1885

== ENCOUNTER 2019-10-10 07:58 | Outpatient (CLI) | payer MEDICARE, BC ==
--- NOTE | 2019-10-10 09:56 | CT ---
CT CHEST WITH IV CONTRAST CT ABDOMEN WITH ORAL AND IV CONTRAST: Date: 10/10/2019 HISTORY: Lung cancer and pancreatic mass. Malignant neoplasm of lower lobe, right bronchus of lung. COMPARISON: CT abdomen dated 03/07/[address] chest of 12/13/2018. FINDINGS: Postop changes of right lower lobectomy are again seen with a stable small right pleural effusion. No mediastinal, hilar, or axillary mass or lymphadenopathy seen. No pneumothoraces, focal areas of cons olidation, lung masses, or nodules are identified. The patient is post cholecystectomy. The liver, spleen, adrenal glands, and right kidney are normal. Cysts in the left kidney are stable. The heterogeneously enhancing solid appearing mass arising from the pancreatic body currently measure s 6.0 x 4.2 x 5.4 cm (previously 6.0 x 4.0 x 5.3 cm). No free air, free fluid, or lymphadenopathy seen in the abdomen. The small bowel loops are not abnorm ally dilated. A retroaortic left renal vein is again seen. There are vascular calcifications without evidence of aneurysmal dilatation of the thoracoabdominal a matilde. There are degenerative changes in the spine. No osteolytic or osteoblastic lesions are seen. IMPRESSION: Essentially stable solid pancreatic body mass and small right pleural effusion.
[2019-10-10] MEDS ORDERED: Iopamidol 370 76% 100 ML VIAL ONE (10:15)
[2019-10-10] MEDS ORDERED: Iopamidol 370 76% 50 ML VIAL FS ONE (10:15)
== END 2019-10-10 07:59 | disposition home or self-care (01) ==
LOC: CT 07:58
PROVIDERS: ATTEND Internal Medicine Hematology & Oncology
DX: C34.31 Malignant neoplasm of lower lobe, right bronchus or lung (principal); K86.9 Disease of pancreas, unspecified; J90 Pleural effusion, not elsewhere classified
CPT/HCPCS: 71260; 74160; 82565; Q9967

== ENCOUNTER 2020-01-26 07:36 | Outpatient (CLI) | payer MEDICARE, BC ==
--- NOTE | 2020-01-26 09:11 | MRI ---
MRI BRAIN AND INTERNAL AUDITORY CANALS WITH AND WITHOUT CONTRAST: Date: 01/26/2020 HISTORY: 85-year-old male with sensorineural hearing loss TECHNIQUE: Multiplanar, multisequence MRI, both whole brain images and thin slices through the IACs, pre and pos t IV injection of gadolinium-based contrast agent. FINDINGS: There is no obstructive hydrocephalus. There is no midline shift or any other evidence of mass effect . There is no extra-axial fluid collection. There are mild chronic ischemic white matter changes due to microvascular atherosclerosis. There is otherwise no major intra-axial signal abnormality, abn ormal enhancement, mass, recent hemorrhage, or restricted diffusion. There is no abnormal enhancement, mass, or morphologic abnormality, involving the cerebellopontine an gles, 7th-8th nerve complexes, internal auditory canals, cochleae, vestibules, vestibular aqueducts, or semicircular canals. IMPRESSION: 1) mild chronic ischemic white matter changes. 2) otherwise negative
[2020-01-26] MEDS ORDERED: Magnevist 469MG/ML 20 ML VIAL ONE (14:33)
== END 2020-01-26 07:37 | disposition home or self-care (01) ==
LOC: BICMRI 07:36
PROVIDERS: ATTEND Student in an Organized Health Care Education/Training Program
DX: H90.5 Unspecified sensorineural hearing loss (principal); I67.82 Cerebral ischemia
CPT/HCPCS: 70553; 82565; A9579

== ENCOUNTER 2020-03-06 07:46 | Emergency (ER) | payer MEDICARE, BC ==
[2020-03-06] MEDS ORDERED: Iopamidol-370 76% 500 ML 1 ML ONE (09:02)
[2020-03-06 09:04] LABS: #Eosinphils 0.1 thou/uL (0.0-0.7); #Lymphocytes 1.3 thou/uL (1.20-3.40); #Monocytes 0.6 thou/uL (0.11-0.59); #Neutrophils 3.6 thou/uL (1.40-6.50); %Basophils 0.3 % (0.0-1.0); %Eosinophils 2.5 % (0.0-10.0); %Monocytes 11.3 % (0.0-10.0); %Neutrophils 62.9 % (42.0-75.0); Hemoglobin 12.2 g/dL (14.0-18.0); Mean Corpuscular HGB CONC 31.4 g/dL (32.0-36.0); Mean Corpuscular Hemoglobin 25.6 pg (27.0-31.0); Mean Corpuscular Volume 81.4 fL (78.0-98.0); Mean Platelet Volume 9.2 fL (7.4-10.4); Platelet Count 243 thou/uL (130-400); RBC Distribution Width 12.5 % (11.5-14.5); Red Blood Cell (RBC) Count 4.77 mill/uL (4.70-6.10); White Blood Cell (WBC) Count 5.7 thou/uL (4.8-10.8)
[2020-03-06 09:25] LABS: ALT (SGPT) 9 U/L (8-55); AST (SGOT) 13 U/L (5-34); Albumin 3.8 g/dL (3.4-4.8); Alkaline Phosphatase 48 U/L (40-110); Anion Gap 14 mmol/L (10-20); BUN (Urea Nitrogen) 31 mg/dL (8.4-25.7); Bilirubin, Total 0.4 mg/dL (0.2-1.2); Calc. Creatinine Clearance 0 mL/min (70-130); Calcium 9.4 mg/dL (7.8-10.44); Carbon Dioxide 22 mmol/L (23-31); Chloride 100 mmol/L (98-107); Estimated GFR-MDRD 38; Glucose 247 mg/dL (83-110); Potassium 4.9 mmol/L (3.5-5.1); Protein, Total 6.8 g/dL (5.8-8.1); Sodium 131 mmol/L (136-145)
--- NOTE | 2020-03-06 10:33 | CT ---
EXAM: CT NECK SOFT TISSUE POST CONTRAST: HISTORY:Dysphagia. History of lung cancer and heart disease. Sensation of food being stuck in throat, after swallowing. COMPARISON:None CORRELATION: FINDINGS: Brain parenchyma: No pathologic enhancement of the visualized brain parenchyma. Sinuses: Adequate aeration of the visualized paranasal sinuses and mastoid air cells. Orbits: Appropriate location of the prosthetic ocular lenses. Symmetric attenuation the optic nerves and ocular rectus muscles. Retrobulbar fat is preserved. Nasopharynx:Adequate aeration. No mucosal abnormality. Oral cavity:Aerodigestive tract is patent. No mucosal abnormality. Limited evaluation of the oral cav ity due to dental amalgam artifact. Midline fatty raphae of the tongue is preserved. Hypopharynx: Epiglottis has a normal caliber. Preepiglottic fat is preserved.. Larynx: Supraglottic, glottic and subglottic larynx and the overall normal appearance. No obvious mas ses or abnormality along the toes appear Paraspinal muscles: Symmetric attenuation of the paraspinal muscles and symmetric attenuation of the sternocleidomastoid muscles.. Parotid and salivary glands: Symmetric attenuation of the parotid and submandibular glands Thyroid gland: Unremarkable. Spine: Vertebral body heights are maintained. There is no fracture. Prominent anterior osteophyte at C5-C6, C6-C7 and C7-T1. There are varying degrees of central canal stenosis and neural foraminal narrowing on the basis of degenerative change. Technique limits evaluation. Lymph nodes: No evidence of lymphadenopathy with regards to the soft tissues of the neck. There is bi lateral palatine tonsil fullness with nonspecific tonsillar calcifications. Lung apices and upper mediastinum: No acute abnormality. Vascular structures: There is atherosclerosis involving both cervical carotid arteries. Technique oakley its evaluation. IMPRESSION: 1. No evidence of a radiopaque foreign body. 2. No obvious mucosal abnormality of the aerodigestive tract. 3. Given patient history, direct visualization of the aerodigestive tract is recommended.
== END 2020-03-06 10:45 | disposition home or self-care (01) ==
LOC: ERS 07:46
DX: R13.10 Dysphagia, unspecified (principal); I48.91 Unspecified atrial fibrillation; E78.5 Hyperlipidemia, unspecified; E78.00 Pure hypercholesterolemia, unspecified; E11.9 Type 2 diabetes mellitus without complications; I10 Essential (primary) hypertension; Z79.899 Other long term (current) drug therapy
CPT/HCPCS: 36415; 70491; 80053; 85025; Q9967

== ENCOUNTER 2020-03-22 04:11 | Inpatient (IN) | payer MEDICARE, BC, OTHER ==
[2020-03-22 04:40] LABS: #Eosinphils 0.2 thou/uL (0.0-0.7); %Basophils 0.2 % (0.0-1.0); %Eosinophils 1.8 % (0.0-10.0); %Lymphocytes 32.7 % (21.0-51.0); %Monocytes 10.7 % (0.0-10.0); %Neutrophils 54.6 % (42.0-75.0); Hemoglobin 9.9 g/dL (14.0-18.0); Mean Corpuscular HGB CONC 33.3 g/dL (32.0-36.0); Mean Corpuscular Hemoglobin 27.1 pg (27.0-31.0); Mean Corpuscular Volume 81.4 fL (78.0-98.0); Mean Platelet Volume 9.6 fL (7.4-10.4); Platelet Count 294 thou/uL (130-400); RBC Distribution Width 12.5 % (11.5-14.5); Red Blood Cell (RBC) Count 3.64 mill/uL (4.70-6.10); White Blood Cell (WBC) Count 9.2 thou/uL (4.8-10.8)
[2020-03-22 04:59] LABS: ALT (SGPT) 10 U/L (8-55); AST (SGOT) 11 U/L (5-34); Albumin 3.6 g/dL (3.4-4.8); Alkaline Phosphatase 42 U/L (40-110); Anion Gap 15 mmol/L (10-20); BUN (Urea Nitrogen) 47 mg/dL (8.4-25.7); Bilirubin, Total 0.5 mg/dL (0.2-1.2); Calc. Creatinine Clearance 0 mL/min (70-130); Carbon Dioxide 22 mmol/L (23-31); Chloride 99 mmol/L (98-107); Estimated GFR-MDRD 33; Globulin 2.6 g/dL (2.4-3.5); Glucose 345 mg/dL (83-110); Lipase 25 U/L (8-78); Potassium 4.3 mmol/L (3.5-5.1); Protein, Total 6.2 g/dL (5.8-8.1); Sodium 132 mmol/L (136-145)
[2020-03-22] MEDS ORDERED: Pantoprazole 40 MG VIAL ONE (05:22)
[2020-03-22] MEDS ORDERED: Piperacillin/Tazobactam 3.375 GM VIAL ONE (05:23)
[2020-03-22 07:29] LABS: #Monocytes 0.7 thou/uL (0.11-0.59); #Neutrophils 8.2 thou/uL (1.40-6.50); %Basophils 0.2 % (0.0-1.0); %Eosinophils 0.5 % (0.0-10.0); %Lymphocytes 10.2 % (21.0-51.0); %Neutrophils 82.2 % (42.0-75.0); Hemoglobin 8.4 g/dL (14.0-18.0); Mean Corpuscular HGB CONC 32.6 g/dL (32.0-36.0); Mean Corpuscular Hemoglobin 27.3 pg (27.0-31.0); Mean Corpuscular Volume 83.9 fL (78.0-98.0); Mean Platelet Volume 9.4 fL (7.4-10.4); Platelet Count 191 thou/uL (130-400); RBC Distribution Width 12.5 % (11.5-14.5); Red Blood Cell (RBC) Count 3.08 mill/uL (4.70-6.10)
--- NOTE | 2020-03-22 07:53 | RAD ---
RADIOGRAPH CHEST 1 VIEW: DATE: 03/22/2020 HISTORY: 85-year-old male with sepsis FINDINGS: There are no airspace densities, pulmonary edema, pneumothorax, or cardiomegaly. The right lateral co stophrenic angles is blunted. There is mild scarring at the right lung base.. IMPRESSION: 1. No acute cardiopulmonary findings. 2. Right pleural thickening and right basilar pulmonary scarring
--- NOTE | 2020-03-22 08:14 | CT ---
PRELIMINARY REPORT/[facility]/EMERGENCY AFTER HOURS PROCEDURE: EXAM: CT Chest with and without Intravenous Contrast. CLINICAL HISTORY: *This is a CT esophagram study* Eval for possible perforation; 85-year-old male sta alex waking up in a cold sweat and did not feel very well. He of note had an upper endoscopy yesterday and received an esophageal dilation for esophageal narrowing. Surgical history of cholecyst ectomy, States has had third of R lung removed. Past medical hx of lung cancer TECHNIQUE: Axial computed tomography images of the chest with and without intravenous contrast. CONTRAST: With and without; Oral contrast only *No IV contrast used due to low GFR COMPARISON: October 10, 2019 FINDINGS: LUNGS: The lungs are clear. No focal airspace consolidation. No pulmonary mass. Apparent lobectomy o n the right with some chronic pleural thickening. PLEURAL SPACES: No pleural effusion. No pneumothorax. HEART AND MEDIASTINUM: No cardiomegaly. No significant pericardial effusion. No mediastinal air is p resent. CT esophagram without evidence of esophageal perforation or other acute abnormality. LYMPH NODES: No lymphadenopathy. BONES: No focal osseous abnormality or acute fracture. CHEST WALL AND UPPER ABDOMEN: Large pancreatic mass poorly evaluated and only partially visualized bu t noted on the prior exam. IMPRESSION: No acute cardiopulmonary abnormalities. No evidence of esophageal perforation. ELECTRONICALLY SIGNED BY: Will Sesay MD Mar 22, 2020 6:09:45 AM CDT FINAL REPORT: EMERGENCY AFTER-HOURS STUDY CT THORAX NONCONTRAST: Attention Marcela in billing: This is a noncontrast chest CT DATE:03/22/2020. TIME: 5:56 AM. HISTORY: An 85-year-old male with history of lung cancer presents with chest pain and diaphoresis after recent esophageal dilatation for esophageal stricture. Concern for esophageal perforation. TECHNIQUE: No IV contrast administered. Precontrast scan through the chest. Patient then swallowed oral contrast material, and scan was repeated. COMPARISON: 10/10/2019. FINDINGS: On the scan after swallowing oral contrast material, there is demonstration of contrast material in t he esophageal lumen. There is no pneumomediastinum, and no extravasation of oral contrast material in the mediastinum. The oral contrast material partially outlines large amount of mixed soft tissue d ensity and gas contents within the lumen of the stomach. Again noted is the right posterior inferior broad layer of moderately high density abutting the poste rior pleural surface at right lower lobe. This is consistent with pleural thickening. There is volume loss in the right lung, chronic. Mild pulmonary scarring at right lower lung zone. Otherwise, lungs remain clear. Trachea and bilateral mainstem bronchi are patent and clear. Atherosclerosis without aneurysm of thoracic aorta. No cardiomegaly. Coronary artery calcification. S olid pancreatic mass partially visualized, better demonstrated on previous CT of chest and abdomen of 10/10/2019. No adrenal nodule. No splenomegaly. No interval change. Agree with preliminary report by [facility]. IMPRESSION: 1) No evidence of esophageal perforation or rupture. 2.) Large amount of material in the lumen of the stomach. This could either represent ingested food c ontents, bezoar, blood, or combination of these. 3) Large pancreatic mass. 4) Postsurgical changes in right lung: old lobectomy or partial lobectomy. 5) Coronary atherosclerosis due to calcified coronary lesion. Transcribed Date/Time: 03/22/2020 8:33 AM
[2020-03-22 08:33] LABS: Bilirubin Negative (Negative); Blood, Urine Negative (Negative); Clarity Clear (Clear); Glucose, Urine (Dipstick) 500 mg/dL (Negative); Ketone, Urine Negative (Negative); Leukocyte Negative Leu/uL (Negative); Nitrite Negative (Negative); Protein, Urine (Dipstick) Negative (Neg-Trace); Specific Gravity, Urine 1.018 (1.002-1.036); Urobilinogen Normal mg/dL (Less than 2)
[2020-03-22] MEDS ORDERED: Ondansetron ODT 4 MG TAB PO PRN (09:04)
[2020-03-22] MEDS ORDERED: Acetaminophen 325 MG TAB PO PRN (09:04)
[2020-03-22] MEDS ORDERED: Dextrose 50% Abboject 50 ML SYRINGE SLOW IVP PRN (09:18)
[2020-03-22] MEDS ORDERED: HumaLOG 300 UNITS/3 ML VIAL SC PRN (09:18)
[2020-03-22] MEDS ORDERED: Dextrose 5% in Water 1,000 ML IV PRN (09:18)
[2020-03-22 09:59] VITALS: BMI 29.2
[2020-03-22 10:15] LABS: INR-International Normal Ratio 2.4; Prothrombin Time 26.8 sec (12.0-14.7)
--- NOTE | 2020-03-22 11:03 | PDOC.HHP ---
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 Chen who presented to the ED on 03/22/2024 weakness, lightheadedness associated with maroon-colored stools. Patient underwent EGD yesterday for esophageal dilation with Dr. Donnelly. Patient reported that approximately 2 AM this morning he began to feel extremely weak sweaty pale and noticed he had a large bowel movement of maroon-colored stools. Patient denies chest pain, shortness of breath, abdominal pain at that time. Patient also took his blood sugar and noticed that it was for him very elevated at 340. Patient self-administered himself an extra 5 units of his home long- acting insulin. Patient denies any history of prior GI bleeding. Denies esha sea/vomiting/diarrhea. Denies chest pain, hematemesis, coffee-ground emesis. In ED initial vital signs 91/51, 69, 97, 16, 97.5, on 100% on room air. H/H9 0.9/29.6, WBC 9.2 Lactic acid 3.6, BNP 42.9. Sodium 132, potassium 4.3, BUN/CR 47/1.94. Glucose 345 chest x-ray showed no acute findings and stable right pleural thickening with right basilar pulmonary scarring. CT chest showed no evidence of esophageal perforation or rupture, large amount of material in the lumen of the stomach which could represent ingested food, bezoar, bladder combination. Large pancreatic mass, postsurgical changes in the right lung with old lobectomy, and coronary arthrosclerosis due to calcified coronary lesion. In the emergency room patient received Zosyn, Protonix, fluid resuscitation with normal saline. 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 Patient has named his medical power of ip technology transactions attorney as his friend Vincent. Hospitalist ROS - Review of Systems Constitutional: reports: sweats, weakness, malaise. denies: fever, chills, other Eyes: denies: pain, vision change, conjunctivae inflammation, eyelid inflammat ion, redness, other ENT: denies: ear pain, ear discharge, nose pain, nose discharge, nose congestion, mouth pain, mouth swelling, throat pain, throat swelling, other Respiratory: denies: cough, dry, shortness of breath, hemoptysis, SOB with excertion, pleuritic pain, sputum, wheezing, other Cardiovascular: denies: chest pain, palpitations, orthopnea, paroxysmal noc. dyspnea, edema, light headedness, other Gastrointestinal: denies: nausea, vomiting, abdominal pain, diarrhea, constipation, melena, hematochezia, other Genitourinary: denies: dysuria, frequency, incontinence, hematuria, retention, other Musculoskeletal: denies: neck pain, shoulder pain, arm pain, back pain, hand pain, leg pain, foot pain, other Skin: denies: rash, lesions, victorina, bruising, other Neurological: denies: weakness, numbness, incoordination, change in speech, confusion, seizures, other - Medication Medications: Home medications include Xarelto 15 mg Pantoprazole 40 mg Amlodipine 2.5 mg Carvedilol 6.25 mg Januvia 100 mg Fenofibrate 145 mg Tresiba 25 to 35 units nightly No known drug allergies Hospitalist History - Past Medical History Other Medical History: Past medical history Atrial fibrillation on Xarelto Hyperlipidemia Hypertension Type 2 diabetes mellitus on insulin Lung cancer status post right lobectomy Esophageal stricture - Past Surgical History Other Surgical History: Past surgical history includes right lobectomy performed by Dr. 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 Activity level: independent ambulation - Exam General Appearance: NAD, awake alert General - other findings: Pale Eye: PERRL, anicteric sclera ENT: normocephalic atraumatic, no oropharyngeal lesions, moist mucosa Neck: supple, symmetric, no JVD, no thyromegaly, no lymphadenopathy, no carotid bruit Heart: no gallops, irregular, murmur present Respiratory: CTAB, no wheezes, no rales, no ronchi, normal chest expansion, no tachypnea, normal percussion Gastrointestinal: soft, non-tender, non-distended, normal bowel sounds, no palpable masses, no hepatomegaly, no splenomegaly, no bruit Extremities: no cyanosis, no clubbing, no edema Skin: normal turgor, no lesions, no rashes Neurological: cranial nerve grossly intact, normal sensation to touch, no weakness, no focal deficits, no new deficit Musculoskeletal: normal tone, normal strength, no muscle wasting Psychiatric: normal affect, normal behavior, A&O x 3 Hospitalist Results - Labs Result Diagrams: 03/23/20 00:48 03/23/20 06:41 Lab results: WBC 10.0 thou/uL (4.8-10.8) 03/22/20 07:01 Hgb 8.4 g/dL (14.0-18.0) L 03/22/20 07:01 Hct 25.9 % (42.0-52.0) L 03/22/20 07:01 MCV 83.9 fL (78.0-98.0) 03/22/20 07:01 Plt Count 191 thou/uL (130-400) 03/22/20 07:01 Neutrophils % 82.2 % (42.0-75.0) H 03/22/20 07:01 Sodium 132 mmol/L (136-145) L 03/22/20 04:25 Potassium 4.3 mmol/L (3.5-5.1) 03/22/20 04:25 Chloride 99 mmol/L (98-107) 03/22/20 04:25 Carbon Dioxide 22 mmol/L (23-31) L 03/22/20 04:25 BUN 47 mg/dL (8.4-25.7) H 03/22/20 04:25 Creatinine 1.94 mg/dL (0.7-1.3) H 03/22/20 04:25 Glucose 345 mg/dL (83-110) H 03/22/20 04:25 Lactic Acid 2.4 mmol/L (0.5-2.2) H 03/22/20 07:01 Calcium 9.0 mg/dL (7.8-10.44) 03/22/20 04:25 Total Bilirubin 0.5 mg/dL (0.2-1.2) 03/22/20 04:25 AST 11 U/L (5-34) 03/22/20 04:25 ALT 10 U/L (8-55) 03/22/20 04:25 Alkaline Phosphatase 42 U/L (40-110) 03/22/20 04:25 Troponin I 0.027 ng/mL (< 0.028) 03/22/20 04:25 B-Natriuretic Peptide 42.9 pg/mL (0-100) 03/22/20 04:25 Serum Total Protein 6.2 g/dL (5.8-8.1) 03/22/20 04:25 Albumin 3.6 g/dL (3.4-4.8) 03/22/20 04:25 Lipase 25 U/L (8-78) 03/22/20 04:25 Urine Ketones Negative mg/dL (Negative) 03/22/20 07:45 Urine Blood Negative (Negative) 03/22/20 07:45 Urine Nitrite Negative (Negative) 03/22/20 07:45 Ur Leukocyte Esterase Negative Mimi/uL (Negative) 03/22/20 07:45 Hospitalist H&P A/P - Plan Plan: Gastrointestinal bleed Father Ana is an 85-year-old male with a past medical history of type 2 diabetes, A. fib, lung cancer status post lobectomy, esophageal stricture who underwent EGD with esophageal dilation day prior to admission with Dr. Donnelly and now presents to ED for GI bleed. H&H on admission 9.9/29.6, down from 12 prior to procedure. BUN elevated to 47. Patient continues to have maroon-colored stools and is symptomatic so we will start blood transfusion. GI team Dr. Syed aware and following. We will continue to hold Xarelto. Plan 1 unit packed red blood cells H&H every 6 Maintain 2 large-bore IVs at all times Pantoprazole twice daily N.p.o. GI team consulted and following, recommendations appreciated GUTIERREZ in chronic kidney disease CKD with baseline creatinine approximately 1.4. On admission BUN/CR 47/1.94. GFR 33. Patient did receive IV contrast in ED to obtain CT to rule out esophageal rupture. Patient did receive fluid bolus after. We will continue to hydrate and monitor. Plan Trend kidney function IV hydration Avoid nephrotoxic agents were possible Renally dose medications appropriately Elevated lactic acid Patient's lactic acid elevated to 3.6 on admission. White blood cell count 9.2. Afebrile. Likely secondary to dehydration, n.p.o. status given recent procedure. Since patient has history of type 2 diabetes will check beta hydroxybutyrate. Patient did receive IV fluids and Zosyn in the ED. Plan Trend lactic acid IV fluids Beta hydroxybutyrate Atrial fibrillation History of A. fib status post ablation and cardioversion. Patient on Xarelto 15 mg daily, which was held prior to procedure. We will continue to hold in setting of GI bleed. EKG showed patient in normal sinus rhythm. Plan Telemetry Hold Xarelto in setting of GI bleed Consider cardiology consult for coagulation management Type 2 Diabetes Mellitus T2DM on triseba 35 units nightly and januiva 100 mg. Blood sugars elevated to [address] on ISS and q6hr glucose checks since pt is NPO. Plan: -q6hr glucose checks -ISS -Restart basal insulin once diet resumed Hypertension We will hold home amlodipine 2.5 mg, carvedilol 6.25 mg in setting of active GI bleed. Hyperlipidemia Continue home fenofibrate DVT prophylaxiscontraindicated secondary to GI bleed Full code Discussed risks versus benefits of blood transfusion. Patient verbally consents and is agreeable to transfusion. Case discussed with attending physician Dr. Arango.
[2020-03-22] MEDS ORDERED: Fentanyl 100 MCG/2 ML VIAL ONE ×2 (11:39→13:08)
[2020-03-22] MEDS ORDERED: Lidocaine 1% PF 5 ML VIAL ONE (11:43)
[2020-03-22] MEDS ORDERED: EPINEPHrine 1 MG/10 ML Abboject SYRINGE ONE (11:43)
[2020-03-22] MEDS ORDERED: Succinylcholine Chloride 20 MG/ML 10 ml SYRINGE FS ONE (11:43)
[2020-03-22] MEDS ORDERED: PROPOFOL 200 MG/20 ML VIAL ONE (11:43)
[2020-03-22] MEDS ORDERED: Rocuronium Bromide 10 MG/ML (10ML VIAL) ONE (11:43)
[2020-03-22] MEDS ORDERED: Ondansetron PF 4 MG/2 ML Vial ONE (11:43)
[2020-03-22] MEDS ORDERED: Albumin 5% 250 ML ONE (11:59)
[2020-03-22] MEDS ORDERED: Promethazine HCl 25 MG/ML VIAL SLOW IVP PRN (14:22)
[2020-03-22] MEDS ORDERED: Sodium Chloride 0.9% (PF) 10 ML VIAL FS PRN (14:30)
[2020-03-22] MEDS ORDERED: Fentanyl 100 MCG/2 ML VIAL SLOW IVP SCH (14:30)
[2020-03-22] MEDS ORDERED: Ondansetron PF 4 MG/2 ML Vial SLOW IVP SCH (14:30)
[2020-03-22] MEDS: Sodium Chloride 0.9% 1,000 ML IV SCH (14:58)
[2020-03-22] MEDS ORDERED: Fentanyl 100 MCG/2 ML VIAL SLOW IVP PRN ×2 (15:08→15:15)
--- NOTE | 2020-03-22 15:38 | OP ---
DATE OF PROCEDURE: 03/22/2020 PROCEDURE PERFORMED: Esophagogastroduodenoscopy with control of hemorrhage. PREPROCEDURE DIAGNOSES: 1. Melena, drop in hemoglobin and blood pressure, consistent with acute gastrointestinal bleed. 2. Recent esophagogastroduodenoscopy yesterday with dilatation of upper esophagus, there was really no effect. No pain or bleeding at that time. 3. Chronic anticoagulation, was restarted on Xarelto for this morning. POSTPROCEDURE DIAGNOSES: 1. 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 2. Esophagus shows no signs of dilation effect. 3. No evidence of trauma in the stomach from dilator passage. 4. Normal duodenum to the third portion. 5. A 5-mm submucosal lesion, soft, not clinically significant. 6. There is a tear of the visible vessel at the gastroesophageal junction, consistent with a Philly-Sotomayor tear at the 5 o'clock position when inserting the scope. This was injected with 1:10,000 epinephrine 6 mL and clipped x3 with control of bleeding. BLOOD LOSS: About 60 mL. ANESTHESIA: General endotracheal anesthesia. DESCRIPTION OF PROCEDURE: After the patient was informed of the risks, benefits, and possible complications of endoscopy including perforation, bleeding, reaction to medication, and aspiration, informed consent was obtained. The patient's case from yesterday had been reviewed as well, so the documentation from that case was discussed with the endoscopist. We went to the endoscopy suite where he was intubated for airway protection. The endoscope was advanced into the esophagus, stomach, and second and third portions of the duodenum. The proximal esophagus and pharynx appeared normal with no evidence of blood. Distal esophagus appeared normal and entered the stomach. There was blood immediately, fresh red with some pumping arterial blood in the proximal stomach. This was cleared away with irrigation and suction and then the antrum was cleared away, which appeared normal. The stomach was surveyed in forward and retroflexed views. The duodenum was surveyed, which was normal. Attention was then turned to the GE junction. In retroflexion, we could see a Philly-Sotomayor tear. This could be seen in forward view too with a visible vessel. It was injected with 1:10,000 epinephrine. It would not stop bleeding; however, I suspect related to his anticoagulation. Therefore, 3 clips were used to stop all bleeding. Once we got the clips and we irrigated, there was no further pulsatile bleeding or reaccumulation of blood. The stomach was desufflated. The scope was removed. The patient tolerated the procedure well. There were no complications. Job ID: [id number]
[2020-03-22 17:22] LABS: SARS-CoV-2 MS2 Positive; SARS-CoV-2 N Gene Negative; SARS-CoV-2 S Gene Negative; SARS-CoV-2 by NAA Not Detected (NotDetected); SARS-CoV-2 orf1ab Negative
[2020-03-22 17:33] LABS: #Monocytes 0.8 thou/uL (0.11-0.59); #Neutrophils 11.6 thou/uL (1.40-6.50); %Eosinophils 0.2 % (0.0-10.0); %Lymphocytes 7.7 % (21.0-51.0); %Monocytes 5.8 % (0.0-10.0); %Neutrophils 86.3 % (42.0-75.0); Hemoglobin 9.5 g/dL (14.0-18.0); Mean Corpuscular HGB CONC 33.2 g/dL (32.0-36.0); Mean Corpuscular Hemoglobin 27.6 pg (27.0-31.0); Mean Corpuscular Volume 83.3 fL (78.0-98.0); Mean Platelet Volume 9.4 fL (7.4-10.4); Platelet Count 181 thou/uL (130-400); RBC Distribution Width 12.8 % (11.5-14.5); Red Blood Cell (RBC) Count 3.43 mill/uL (4.70-6.10); White Blood Cell (WBC) Count 13.4 thou/uL (4.8-10.8)
[2020-03-22] MEDS ORDERED: Ondansetron PF 4 MG/2 ML Vial IVP PRN (18:00)
--- NOTE | 2020-03-22 19:54 | CON ---
DATE OF CONSULTATION: 03/22/2020 CONSULTING PHYSICIAN: Dr. Kebede, [facility]. HISTORY OF PRESENT ILLNESS: Mr. Perez is an 85-year-old with history of pancreatic cancer who is not having it treated, but who was seen yesterday by Dr. Donnelly for globus sensation in his throat. He had an EGD with dilatation of both 54-New Zealander and 60-New Zealander Lezama dilators. There was no heme staining and second-look showed no trauma. The patient did well after endoscopy and was observed for some time with no pain. He went home, reportedly did fine overnight, but awoke about 4 this morning and felt clammy and like his sugar was too low when in fact it was 400. He was in a cold sweat, did not feel well. He took an extra dose of insulin and then just did not feel any better, so he came into the emergency room. Apparently, he had some dark stool the day before maybe and when I saw him he was getting a transfusion and did not remember all details completely. He notes that he had two large stools in the emergency room confirmed by the ER doctor and one on the floor. These were reported melena to red. The emergency room had a CAT scan of the chest and a chest x-ray that showed no signs of esophageal perforation or injury or upper GI tract perforation or injury. His hemoglobin was noted to have dropped from a baseline around 12 to 9.8 on arrival. He was given Protonix and a dose of Zosyn, admitted to the hospital. Presently, he has had that second bout of stools since arriving on the floor per the nurses. His hemoglobin and hematocrit are looking stable, but is somewhat pale and feels mildly nauseated. He denies retching or vomiting. He does note that he feels a tightness in his throat still. PAST MEDICAL HISTORY: Pancreatic cancer of unclear etiology; atrial fibrillation, on Xarelto, last dose taken early this morning. He has been off for two days prior to his EGD yesterday. Hyperlipidemia, hypertension, lung cancer, previous right lobectomy, pancreatic cancer. He has melenas, not being treated for it. SURGICAL HISTORY: Right lobectomy, previous cardioversion in 2019, pericardial window in 2019, cholecystectomy, knee replacement. He had a colonoscopy 2 years ago which was normal. FAMILY HISTORY: Lung cancer, mother. Heart disease in the father. SOCIAL HISTORY: Never smoked. Does not drink. Lives alone. 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 PRESENT MEDICATIONS: Here, he has received Protonix in the emergency room. He is on some IV fluid 100 an hour and received antibiotics in the emergency room. PHYSICAL EXAMINATION: GENERAL: He is somewhat pale. He is receiving a unit of blood presently. VITAL SIGNS: Temperature is 98, pulse is 92, temperature is 97, blood pressure 112/52. LUNGS: Clear. HEART: Regular rate and rhythm without clicks or murmurs. ABDOMEN: Soft and nontender. There is no rebound or guarding. ABDOMEN: Benign. LABORATORY DATA: White count 9.2. Hemoglobin 9.8, that was at 4 in the morning, it was 8.4 at 7 a.m. Platelets 91. INR 2.4, glucose 311. Sodium 132, potassium 4.3, BUN and creatinine are 47 and 1.95, glucose 354. Liver function tests normal. Albumin 3.6. ASSESSMENT: 1. Acute gastrointestinal hemorrhage. It is unclear if this is related to his recent endoscopy. I reviewed this pictures and the reports with Dr. Donnelly and talked with him about it this morning. It was an EGD with no overt stricture seen. The timing of bleeding after the procedure makes one concerned about complications of recent endoscopy or perioperative period such as Philly-Sotomayor tear from retching after anesthesia, although the patient denies having any vomiting since arriving home. 2. Pancreatic cancer. This is not being treated and there are no plans for him to treat it. 3. Remote history of lung cancer, which is resolved. PLAN: Transfuse, PPIs, urgent endoscopy today. Job ID: [id number]
[2020-03-22 20:25] LABS: INR-International Normal Ratio 1.6; PTT 30.2 sec (22.9-36.1); Prothrombin Time 19.4 sec (12.0-14.7)
[2020-03-22 20:27] LABS: #Lymphocytes 1.9 thou/uL (1.20-3.40); #Monocytes 0.9 thou/uL (0.11-0.59); %Basophils 0.1 % (0.0-1.0); %Eosinophils 0.1 % (0.0-10.0); %Lymphocytes 13.6 % (21.0-51.0); %Monocytes 6.7 % (0.0-10.0); %Neutrophils 79.5 % (42.0-75.0); Hemoglobin 8.5 g/dL (14.0-18.0); Mean Corpuscular HGB CONC 32.7 g/dL (32.0-36.0); Mean Corpuscular Hemoglobin 27.3 pg (27.0-31.0); Mean Corpuscular Volume 83.7 fL (78.0-98.0); Mean Platelet Volume 9.7 fL (7.4-10.4); Platelet Count 210 thou/uL (130-400); RBC Distribution Width 12.9 % (11.5-14.5); White Blood Cell (WBC) Count 13.9 thou/uL (4.8-10.8)
[2020-03-22 20:40] LABS: Anion Gap 11 mmol/L (10-20); BUN (Urea Nitrogen) 43 mg/dL (8.4-25.7); Calc. Creatinine Clearance 51 mL/min (70-130); Calcium 7.9 mg/dL (7.8-10.44); Carbon Dioxide 22 mmol/L (23-31); Chloride 108 mmol/L (98-107); Estimated GFR-MDRD 44; Glucose 261 mg/dL (83-110); Potassium 4.6 mmol/L (3.5-5.1); Sodium 136 mmol/L (136-145)
[2020-03-22] MEDS: Pantoprazole 40 MG VIAL IVP SCH (21:30)
--- NOTE | 2020-03-22 23:51 | PDOC.EVN ---
Event Note - Event Note Event Note: Notified by RN, patient with another bloody bowel movement. Became lightheaded when he was taken to the bedside commode and noted to be hypotensive in the 90s. Repeat BP taken once he was back in bed and improved to 130s. Similar episode earlier today at approx 7pm at which time 2 units of PRBCs ordered. He is still receiving the first unit which was started at 2200 due to issues running the Type & Screen, according to nurse. Currently resting and no longer symptomatic. Dr. Head was called and aware of above. Patient being moved to [facility] for close monitoring. Will re-check H/H after 1 unit.
[2020-03-23 00:31] LABS: Lactic Acid 1.8 mmol/L (0.5-2.2)
[2020-03-23] MEDS: Sodium Chloride 0.9% 1,000 ML IV SCH ×4 (00:32→18:14)
[2020-03-23 00:40] LABS: Anion Gap 8 mmol/L (10-20); BUN (Urea Nitrogen) 40 mg/dL (8.4-25.7); Calc. Creatinine Clearance 54 mL/min (70-130); Calcium 7.6 mg/dL (7.8-10.44); Carbon Dioxide 22 mmol/L (23-31); Chloride 110 mmol/L (98-107); Estimated GFR-MDRD 47; Glucose 227 mg/dL (83-110); Potassium 4.4 mmol/L (3.5-5.1); Sodium 136 mmol/L (136-145)
[2020-03-23 01:20] LABS: Hemoglobin 8.2 g/dL (14.0-18.0)
[2020-03-23] MEDS ORDERED: Fentanyl 100 MCG/2 ML VIAL ONE (02:55)
[2020-03-23] MEDS ORDERED: EPINEPHrine 1 MG/10 ML Abboject SYRINGE ONE ×2 (04:09→12:46)
[2020-03-23] MEDS ORDERED: SUGAMMADEX SODIUM 500 MG/5 ML VIAL ONE (04:09)
[2020-03-23] MEDS ORDERED: Promethazine HCl 25 MG/ML VIAL SLOW IVP PRN (04:42)
[2020-03-23] MEDS ORDERED: Promethazine HCl 25 MG/ML VIAL IM PRN (04:42)
[2020-03-23] MEDS ORDERED: Ondansetron HCl/PF 4 MG/2 ML Vial IVP PRN (04:42)
[2020-03-23] MEDS ORDERED: Promethazine HCl 25 MG/ML VIAL ONE (05:08)
[2020-03-23 07:04] LABS: Anion Gap 10 mmol/L (10-20); BUN (Urea Nitrogen) 37 mg/dL (8.4-25.7); Calc. Creatinine Clearance 52 mL/min (70-130); Calcium 8.3 mg/dL (7.8-10.44); Carbon Dioxide 21 mmol/L (23-31); Chloride 110 mmol/L (98-107); Estimated GFR-MDRD 45; Glucose 188 mg/dL (83-110); Potassium 4.6 mmol/L (3.5-5.1); Sodium 136 mmol/L (136-145)
[2020-03-23 09:11] LABS: #Lymphocytes 0.5 thou/uL (1.20-3.40); #Monocytes 0.2 thou/uL (0.11-0.59); %Eosinophils 0.2 % (0.0-10.0); %Lymphocytes 5.8 % (21.0-51.0); %Monocytes 2.2 % (0.0-10.0); %Neutrophils 91.8 % (42.0-75.0); Hemoglobin 9.7 g/dL (14.0-18.0); Hemoglobin 9.8 g/dL (14.0-18.0); Mean Corpuscular HGB CONC 34.1 g/dL (32.0-36.0); Mean Corpuscular Hemoglobin 28.9 pg (27.0-31.0); Mean Platelet Volume 9.5 fL (7.4-10.4); Platelet Count 130 thou/uL (130-400); RBC Distribution Width 13.7 % (11.5-14.5); Red Blood Cell (RBC) Count 3.38 mill/uL (4.70-6.10); White Blood Cell (WBC) Count 8.7 thou/uL (4.8-10.8)
[2020-03-23] MEDS: Pantoprazole 40 MG VIAL IVP SCH ×2 (10:35→21:29)
--- NOTE | 2020-03-23 11:17 | EKG ---
Test Reason : Blood Pressure : / mmHG Vent. Rate : 094 BPM Atrial Rate : 094 BPM P-R Int : 202 ms QRS Dur : 098 ms QT Int : 380 ms P-R-T Axes : 060 056 074 degrees QTc Int : 475 ms Normal sinus rhythm Normal ECG Confirmed by ISAAC VILLALTA ([id number]), food editor JONATHAN LINTON ([id number]) on 03/23/2020 11:17:08 AM Referred By: Confirmed By:ISAAC VILLALTA
[2020-03-23] MEDS: HumaLOG 300 UNITS/3 ML VIAL SC PRN (11:52)
[2020-03-23] MEDS ORDERED: EPHEDRINE 25 MG/5 ML SYRINGE ONE (12:46)
[2020-03-23] MEDS ORDERED: Glycopyrrolate 0.2 MG/ML 5 ML SYRINGE ONE (12:46)
[2020-03-23] MEDS ORDERED: PHENYLEPHRINE-NS 100 MCG/ML 10 ML SYRINGE ONE (12:46)
[2020-03-23] MEDS ORDERED: PROPOFOL 200 MG/20 ML VIAL ONE (12:46)
[2020-03-23] MEDS ORDERED: Calcium Chloride 1 GM/10 ML Abboject SYRINGE ONE (12:46)
[2020-03-23] MEDS ORDERED: Rocuronium Bromide 10 MG/ML (10ML VIAL) ONE (12:46)
[2020-03-23] MEDS ORDERED: Dexamethasone 20 MG/5 ML VIAL ONE (12:46)
[2020-03-23] MEDS ORDERED: Ondansetron PF 4 MG/2 ML Vial ONE (12:46)
[2020-03-23 17:02] LABS: Hemoglobin 8.9 g/dL (14.0-18.0); Platelet Count 135 thou/uL (130-400)
[2020-03-23] MEDS ORDERED: Cepastat Lozenges 1 LOZ PO PRN (17:57)
--- NOTE | 2020-03-23 20:45 | PRG ---
DATE OF SERVICE: 03/23/2020 HISTORY OF PRESENT ILLNESS: Osito Perez presented with GI bleed. He underwent an endoscopy twice last 24 hours. He clinically appears to quit bleeding. He is afebrile. He has no complaints. PAST MEDICAL HISTORY: Remarkable for, 1. Resected lung cancer in the past. 2. History of hypertension. 3. History of lipid disorder. 4. History of diabetes. 5. History of anticoagulation for atrial fibrillation. 6. History of esophageal stricture, recently dilated. FAMILY HISTORY: Negative for lung disease in early age. Nonsmoker, nondrinker. PHYSICAL EXAMINATION: VITAL SIGNS: He is afebrile, heart rate is in the 100s, blood pressure 162/60, and oximetry is 100%. HEAD AND NECK: Unremarkable. LUNGS: Clear. HEART: Regular rhythm. S1 and S2 are normal. ABDOMEN: Soft and nontender. EXTREMITIES: Without clubbing, cyanosis, or edema. LABORATORY DATA: Hemoglobin this morning was 9.8; this afternoon, it is 8.9. IMPRESSION: Gastrointestinal bleed, status post 2 endoscopies, injection of a vessel and clipping of a bleeding vessel and a Philly-Sotomayor tear. Overall, he appears to be stable at this point in time. I will follow the other physicians caring for him. This is a 70 min consult with greater than 50% of the time spent on unit with coordination of care. Job ID: [id number] MTDD
--- NOTE | 2020-03-23 21:40 | PDOC.HOSPP ---
- Subjective Encounter Date: 03/23/20 Encounter Time: 15:30 Subjective: Patient seen and examined for GI bleeding. Chart reviewed. No new bleeding episodes. Denies any chest pain or shortness of breath. - Objective Vital Signs & Weight: Vital Signs (12 hours) Temp 03/23/20 20:00 97.1 F L 03/23/20 16:00 99 F 03/23/20 12:00 98.6 F Weight Admit Weight 220 lb 10.923 oz Weight 221 lb 14.4 oz Most Recent Monitor Data Heart Rate from ECG 101 NIBP 157/61 NIBP BP-Mean 93 Respiration from ECG 21 SpO2 100 I&O: 03/22/20 03/23/20 03/24/20 06:59 06:59 06:59 Intake Total 480 2089 Output Total 900 Balance 480 1189 Result Diagrams: 03/23/20 21:55 03/23/20 06:41 Additional Labs: Accuchecks 03/23/20 03/23/20 03/23/20 18:18 06:42 01:50 POC Glucose 160 H 179 H 189 H EKG Reviewed by me: Yes (Telemetry monitoring reviewedAtrial fibrillation) Hospitalist ROS - Review of Systems Respiratory: denies: cough, dry, shortness of breath, hemoptysis, SOB with excertion, pleuritic pain, sputum, wheezing, other Cardiovascular: denies: chest pain, palpitations, orthopnea, paroxysmal noc. dyspnea, edema, light headedness, other - Medication Medications: Active Medications Generic Name Dose Route Start Last Admin Trade Name Freq PRN Reason Stop Dose Admin Sodium Chloride 1,000 mls @ 100 mls/hr 03/23/20 05:15 03/23/20 18:14 Normal Saline 0.9% IV 1,000 mls .Q10H MELANIA Administration Insulin Human Lispro 0 units 03/22/20 09:18 03/23/20 11:52 Humalog 300 Units/3 Ml Vial SC 2 unit .MODERATE SLIDING SC PRN Administration Moderate Correctional Scale Ondansetron HCl 4 mg 03/22/20 18:00 03/22/20 21:29 Ondansetron Pf 4 Mg/2 Ml Vial IVP 4 mg Q4H PRN Administration Nausea/Vomiting Pantoprazole Sodium 40 mg 03/22/20 21:00 10/17/20 21:29 Pantoprazole 40 Mg Vial IVP 40 mg Q12HR MELANIA Administration Throat Lozenges 1 bharti 03/23/20 17:57 03/23/20 18:15 Cepastat Lozenges 1 Bharti PO 1 bharti Q1H PRN Administration Cough - Exam General Appearance: NAD Heart: RRR, no gallops Respiratory: no wheezes, no ronchi Gastrointestinal: soft, normal bowel sounds, no guarding, no rigidity Extremities: no cyanosis, no clubbing Hosp A/P (1) Upper GI bleeding Code(s): K92.2 - GASTROINTESTINAL HEMORRHAGE, UNSPECIFIED Status: Acute (2) Acute blood loss anemia Code(s): D62 - ACUTE POSTHEMORRHAGIC ANEMIA Status: Acute (3) Hypertension Code(s): I10 - ESSENTIAL (PRIMARY) HYPERTENSION Status: Chronic (4) Paroxysmal atrial fibrillation Code(s): I48.0 - PAROXYSMAL ATRIAL FIBRILLATION Status: Chronic (5) Diabetes mellitus type 2 in nonobese Code(s): E11.9 - TYPE 2 DIABETES MELLITUS WITHOUT COMPLICATIONS Status: Chronic (6) [id number]-[id number] kidney injury Code(s): N17.9 - ACUTE KIDNEY FAILURE, UNSPECIFIED; N18.9 - CHRONIC KIDNEY DISEASE, UNSPECIFIED Status: Resolved Qualifiers: Chronic kidney disease stage: stage 3 (moderate) (7) other issues per previous notes - Plan DVT proph w/SCDs Continue IVP PPIs. Reduce IV fluid to KVO. Anticoagulation on hold. Continue to monitor H&H q6 to 8 hourly. Continue sliding scale. Continue clear liquid diet. Recheck labs in a.m. Continue critical care monitoring. Check orthostatic vitals in a.m. Resume carvedilol at low dose restart statins. Continue close monitoring
--- NOTE | 2020-03-23 22:14 | PRG ---
DATE OF SERVICE: 03/23/2020 TIME: Around 8:30 p.m. SUBJECTIVE: Osito Perez is an 85-year-old pleasant male, hospitalized with GI bleeding, underwent EGD with clipping of a visible vessel yesterday. The patient rebled late last night and underwent repeat procedure early this morning. He was found to have active bleeding from the proximal stomach visible vessel. He had large amount of blood clots and blood which has been removed. Finally, I was able to look at the area. The clips which were placed by Dr. Mondragon had fallen down clips. The patient underwent clipping of the vessel and has done well. He was doing this morning very well. He is doing well at present time. No abdominal pain. No nausea or vomiting. PHYSICAL EXAMINATION: VITAL SIGNS: His pulse rate remains the same at 100, blood pressure is 160/68. He has normal heart sounds. LUNGS: Clear to auscultation. ABDOMEN: Soft and nontender. LABORATORY DATA: The hemoglobin has dropped down from 9.8, 9.7, to 8.9, 4 o'clock. He has had three or four small dark stools as per the nurses. He has also passed a large amount of gas. RECOMMENDATION: 1. Serial H and H. 2. Continue PPI. 3. We will advance diet if he is stable through the night. Job ID: [id number]
[2020-03-23 22:21] LABS: Hemoglobin 8.1 g/dL (14.0-18.0); Platelet Count 130 thou/uL (130-400)
[2020-03-23] MEDS ORDERED: Labetalol HCl 100 MG/20 ML VIAL SLOW IVP PRN (23:15)
[2020-03-24] MEDS: Sodium Chloride 0.9% 1,000 ML IV SCH ×2 (00:36→23:35)
[2020-03-24 05:04] LABS: #Eosinphils 0.1 thou/uL (0.0-0.7); #Lymphocytes 1.3 thou/uL (1.20-3.40); #Monocytes 0.7 thou/uL (0.11-0.59); %Basophils 0.1 % (0.0-1.0); %Eosinophils 1.3 % (0.0-10.0); %Lymphocytes 18.1 % (21.0-51.0); %Monocytes 10.4 % (0.0-10.0); Hemoglobin 7.6 g/dL (14.0-18.0); Mean Corpuscular HGB CONC 32.7 g/dL (32.0-36.0); Mean Corpuscular Hemoglobin 27.7 pg (27.0-31.0); Mean Corpuscular Volume 84.5 fL (78.0-98.0); Mean Platelet Volume 8.9 fL (7.4-10.4); Platelet Count 123 thou/uL (130-400); RBC Distribution Width 13.7 % (11.5-14.5); Red Blood Cell (RBC) Count 2.76 mill/uL (4.70-6.10); White Blood Cell (WBC) Count 7.1 thou/uL (4.8-10.8)
[2020-03-24 05:32] LABS: Phosphorus 1.8 mg/dL (2.3-4.7)
[2020-03-24 05:34] LABS: ALT (SGPT) 8 U/L (8-55); AST (SGOT) 16 U/L (5-34); Albumin 2.8 g/dL (3.4-4.8); Alkaline Phosphatase 25 U/L (40-110); Anion Gap 8 mmol/L (10-20); BUN (Urea Nitrogen) 23 mg/dL (8.4-25.7); Bilirubin, Total 0.5 mg/dL (0.2-1.2); Calc. Creatinine Clearance 60 mL/min (70-130); Calcium 8.1 mg/dL (7.8-10.44); Carbon Dioxide 25 mmol/L (23-31); Chloride 109 mmol/L (98-107); Estimated GFR-MDRD 53; Globulin 1.8 g/dL (2.4-3.5); Glucose 119 mg/dL (83-110); Magnesium 1.6 mg/dL (1.6-2.6); Potassium 4.1 mmol/L (3.5-5.1); Protein, Total 4.6 g/dL (5.8-8.1); Sodium 138 mmol/L (136-145)
--- NOTE | 2020-03-24 07:51 | PRG ---
DATE OF SERVICE: 03/23/2020 SUBJECTIVE: 85-year-old , hospitalized two nights ago with blood loss. The patient has had an EGD and dilation by Dr. Donnelly the day before. The patient has been taking Xarelto because of atrial fibrillation. He . The patient underwent EGD yesterday and was found to have as per Dr. Mondragon, a Philly-Sotomayor tear of the GE junction and also evidence of active bleeding. He underwent injection of epinephrine and also hemoclip placement. The patient started having bleeding last night. The patient probably bled a . His blood pressure dropped as low as 80/ Was transferred to [facility] and received 2 units of packed RBCs. endoscopy last night and was found to have active bleeding from visible vessel at the GE junction tear at that time. The patient has hemoclip x3 placement . However, I could see only one hemoclip, and it was not actually over the site of bleeding. Appears all three have dislodged. The patient underwent a repeat hemoclip placement this morning about 5:00 or 05:30. The patient has done well since getting back to ICU. He has had no stool. No abdominal pain. No nausea. PHYSICAL EXAMINATION: VITAL SIGNS: Tachycardia with pulse rate , blood pressure . CARDIOVASCULAR SYSTEM: Normal. LUNGS: Clear to auscultation. ABDOMEN: Soft and . LABORATORY DATA: From this morning, WBC 8,700, MCV 85, platelet count . CLINICAL IMPRESSION: 1. Acute gastrointestinal bleeding. Did lose quite a bit of blood last night .. 2. Anemia, blood loss. 3. Mild prerenal azotemia versus acute. 4. Pancreatic cancer. RECOMMENDATION: 1. Clear liquid diet. 2. Serial H and H and transfuse p.r.n. We will probably hold because of some bleeding. Job ID: [id number]
[2020-03-24] MEDS ORDERED: Carvedilol 3.125 MG TAB PO SCH (08:00)
[2020-03-24] MEDS ORDERED: Magnesium Sulfate 4 GM in Sodium Chloride 0.9% 250 ML 250 ML IVPB SCH (08:30)
[2020-03-24] MEDS ORDERED: Potassium Phosphate 15 MMOL in Sodium Chloride 0.9% 250 ML 250 ML IVPB SCH (08:30)
[2020-03-24] MEDS: Pantoprazole 40 MG VIAL IVP SCH ×2 (09:12→20:43)
[2020-03-24] MEDS: Atorvastatin Calcium 10 MG TAB PO SCH (09:12)
[2020-03-24] MEDS ORDERED: Labetalol HCl 100 MG/20 ML VIAL SLOW IVP PRN (09:50)
[2020-03-24] MEDS ORDERED: Fentanyl 100 MCG/2 ML VIAL ONE (10:26)
[2020-03-24] MEDS ORDERED: PROPOFOL 200 MG/20 ML VIAL ONE (12:57)
[2020-03-24] MEDS ORDERED: Rocuronium Bromide 10 MG/ML (10ML VIAL) ONE (12:57)
[2020-03-24] MEDS ORDERED: Ondansetron PF 4 MG/2 ML Vial ONE ×2 (12:57)
[2020-03-24] MEDS ORDERED: Succinylcholine Chloride 20 MG/ML 10 ml SYRINGE FS ONE (12:57)
[2020-03-24] MEDS ORDERED: EPINEPHrine 1 MG/10 ML Abboject SYRINGE ONE (12:57)
[2020-03-24] MEDS ORDERED: Lidocaine 1% PF 5 ML VIAL ONE (12:57)
--- NOTE | 2020-03-24 15:31 | PRG ---
DATE OF SERVICE: 03/24/2020 SUBJECTIVE: Osito Perez remains hemodynamically stable this morning. He was going down for followup endoscopy when I saw him this morning. OBJECTIVE: LUNGS: Clear. HEART: Regular rhythm. ABDOMEN: Soft. LABORATORY DATA: White count 7.1, hemoglobin 7.6 this morning. Sodium 138, potassium 4.1, chloride 109, bicarb 25, BUN 23, and creatinine 1.28. IMPRESSION: 1. Gastrointestinal blood loss. 2. History of lung cancer. 3. I was informed by Dr. Mondragon that he has pancreatic cancer, and is opted not to do anything. 4. History of atrial fibrillation, on anticoagulation. 5. History of lipid disorder. 6. History of hypertension. PLAN: Continue supportive care with transfusions as needed. Job ID: [id number]
[2020-03-24] MEDS: Carvedilol 6.25 MG TAB PO SCH (16:56)
[2020-03-24 18:19] LABS: Hemoglobin 8.8 g/dL (14.0-18.0); Platelet Count 110 thou/uL (130-400)
--- NOTE | 2020-03-24 18:29 | PDOC.HOSPP ---
- Subjective Encounter Date: 03/24/20 Encounter Time: 09:00 Subjective: Patient seen and examined for GI bleeding. Had a small amount of dark tarry stool. Denies any hematemesis or abdominal pain. No chest pain or shortness of breath. - Objective Vital Signs & Weight: Vital Signs (12 hours) Temp Pulse Ox 03/24/20 18:00 97.4 F L 03/24/20 17:06 97.6 F 03/24/20 16:12 97.6 F 03/24/20 15:48 97.9 F 03/24/20 12:34 97.2 F L 03/24/20 10:27 98.7 F 03/24/20 07:20 100 03/24/20 07:00 98.5 F Weight Admit Weight 220 lb 10.923 oz Weight 221 lb 14.4 oz Most Recent Monitor Data Heart Rate from ECG 84 NIBP 142/67 NIBP BP-Mean 92 Respiration from ECG 22 SpO2 99 I&O: 03/23/20 03/24/20 03/25/20 06:59 06:59 06:59 Intake Total 480 3392 2888 Output Total 1800 1800 Balance 480 1592 1088 Result Diagrams: 03/24/20 18:06 03/24/20 04:50 Additional Labs: Abnormal Lab Results - Last 48 hrs 03/22/20 07:01: Crossmatch See Detail 03/22/20 20:07: PT 19.4 H 03/22/20 20:07: Chloride 108 H, Carbon Dioxide 22 L, BUN 43 H, Creatinine 1.50 H 03/22/20 20:07: WBC 13.9 H, RBC 3.10 L, Hgb 8.5 L, Hct 26.0 L, Neutrophils % 79.5 H, Lymphocytes % 13.6 L, Neutrophils # 11.0 H, Monocytes # 0.9 H 03/22/20 20:55: Crossmatch See Detail 03/23/20 00:00: Chloride 110 H, Carbon Dioxide 22 L, Anion Gap 8 L, BUN 40 H, Creatinine 1.42 H, Calcium 7.6 L 03/23/20 00:48: Hgb 8.2 L, Hct 24.1 L 03/23/20 06:41: Chloride 110 H, Carbon Dioxide 21 L, BUN 37 H, Creatinine 1.49 H 03/23/20 08:50: RBC 3.38 L, Hgb 9.8 L, Hct 28.8 L, Neutrophils % 91.8 H, Lymphocytes % 5.8 L, Neutrophils # 8.0 H, Lymphocytes # 0.5 L 03/23/20 08:50: Hgb 9.7 L, Hct 29.2 L 03/23/20 16:53: Hgb 8.9 L, Hct 25.5 L 03/23/20 21:55: Hgb 8.1 L, Hct 23.9 L 03/24/20 04:50: Chloride 109 H, Anion Gap 8 L, Alkaline Phosphatase 25 L, Serum Total Protein 4.6 L, Albumin 2.8 L, Globulin 1.8 L 03/24/20 04:50: RBC 2.76 L, Hgb 7.6 L, Hct 23.3 L, Plt Count 123 L, Lymphocytes % 18.1 L, Monocytes % 10.4 H, Monocytes # 0.7 H 03/24/20 04:50: Phosphorus 1.8 L 03/24/20 18:06: Hgb 8.8 L, Hct 25.7 L, Plt Count 110 L Microbiology - Entire Visit 03/22/20 04:41 Venous blood - Right Arm Blood Culture - Preliminary NO GROWTH AT 48 HOURS 03/22/20 04:52 Venous blood - Left Hand Blood Culture - Preliminary NO GROWTH AT 48 HOURS 03/22/20 07:45 Urine voided Urine Culture - Final EKG Reviewed by me: Yes (Sinus rhythm on telemetry) Hospitalist ROS - Review of Systems Respiratory: denies: cough, dry, shortness of breath, hemoptysis, SOB with excertion, pleuritic pain, sputum, wheezing, other Cardiovascular: denies: chest pain, palpitations, orthopnea, paroxysmal noc. dyspnea, edema, light headedness, other - Medication Medications: Active Medications Generic Name Dose Route Start Last Admin Trade Name Freq PRN Reason Stop Dose Admin Atorvastatin Calcium 10 mg 03/24/20 09:00 03/24/20 09:12 Atorvastatin Calcium 10 Mg Tab PO 10 mg DAILY MELANIA Administration Carvedilol 6.25 mg 03/24/20 17:00 03/24/20 16:56 Carvedilol 6.25 Mg Tab PO 6.25 mg BID- MELANIA Administration Sodium Chloride 1,000 mls @ 30 mls/hr 10/17/20 23:15 03/24/20 00:36 Normal Saline 0.9% IV Not Given .Q24H MELANIA Insulin Human Lispro 0 units 03/22/20 09:18 03/23/20 11:52 Humalog 300 Units/3 Ml Vial SC 2 unit .MODERATE SLIDING SC PRN Administration Moderate Correctional Scale Ondansetron HCl 4 mg 03/22/20 18:00 03/22/20 21:29 Ondansetron Pf 4 Mg/2 Ml Vial IVP 4 mg Q4H PRN Administration Nausea/Vomiting Pantoprazole Sodium 40 mg 03/22/20 21:00 03/24/20 09:12 Pantoprazole 40 Mg Vial IVP 40 mg Q12HR MELANIA Administration Throat Lozenges 1 bharti 03/23/20 17:57 03/23/20 18:15 Cepastat Lozenges 1 Bharti PO 1 bharti Q1H PRN Administration Cough - Exam General Appearance: NAD Heart: RRR, no gallops Respiratory: no wheezes, no ronchi Gastrointestinal: soft, non-tender, normal bowel sounds Extremities: no cyanosis Neurological: no new deficit Hosp A/P (1) Upper GI bleeding Code(s): K92.2 - GASTROINTESTINAL HEMORRHAGE, UNSPECIFIED Status: Acute (2) Acute blood loss anemia Code(s): D62 - ACUTE POSTHEMORRHAGIC ANEMIA Status: Acute (3) Hypertension Code(s): I10 - ESSENTIAL (PRIMARY) HYPERTENSION Status: Chronic (4) Paroxysmal atrial fibrillation Code(s): I48.0 - PAROXYSMAL ATRIAL FIBRILLATION Status: Chronic (5) Diabetes mellitus type 2 in nonobese Code(s): E11.9 - TYPE 2 DIABETES MELLITUS WITHOUT COMPLICATIONS Status: ron (6) Feddr-qb-bidsrol kidney injury Code(s): N17.9 - ACUTE KIDNEY FAILURE, UNSPECIFIED; N18.9 - CHRONIC KIDNEY DISEASE, UNSPECIFIED Status: Resolved Qualifiers: Chronic kidney disease stage: stage 3 (moderate) (7) Hypomagnesemia Code(s): E83.42 - HYPOMAGNESEMIA Status: Acute (8) Hypophosphatemia Code(s): E83.39 - OTHER DISORDERS OF PHOSPHORUS METABOLISM Status: Acute (9) other issues per previous notes - Plan Repeat EGD today. Xarelto on hold due to GI bleeding. Will monitor H&H every 12 hours. Continue IV Protonix. Increase dose of carvedilol. Resume amlodipine tomorrow. N.p.o. today. Continue sliding scale. Continue critical care monitoring. Patient understands above plan of care.
--- NOTE | 2020-03-24 19:11 | OP ---
DATE OF PROCEDURE: 03/23/2020 OPERATIVE PROCEDURES: 1. Esophagogastroduodenoscopy. 2. Injection of 1:10,000 epinephrine, total of 9 cc injected. 3. Hemoclip placement x2. PREOPERATIVE DIAGNOSIS: Upper gastrointestinal bleeding. POSTOPERATIVE DIAGNOSIS: Active gastrointestinal bleeding at the GE junction with an arterial pumper status post control with Hemoclip placement. PROCEDURE NOTE: The patient had an EGD yesterday by Dr. Mondragon. The patient was found to have an active bleeding from the GE junction, from a vessel which was clipped. Good hemostasis was achieved. However, the patient had been passing bright red blood per rectum this evening around 7. I was called at 11:45 last night. I recommended blood transfusion, but he continues to bleed. The patient underwent EGD. The patient was intubated and was given sedation by Anesthesia Department. A bite block was placed. The patient was placed on the left lateral position. A Pentax video gastroscope under direct vision was passed down the oropharynx past the GE junction. Upon entering the GE junction, the patient was found to have a large amount of fresh blood and blood clots occupying the greater curvature, fundus and cardia. The scope was advanced into the gastric body and gastric antrum and duodenal bulb. No pathology seen. There was large amount of fresh blood and blood clots. Could not really see the site of bleeding. I was told that Dr. Mondragon placed three clips, but I could see only one hemoclip. Apparently two other clips fell down. The procedure was very lengthy. The scope and multiple passes were made back and forth to remove most of the clots. After the clots were removed, I could see an arterial pumper over the proximal stomach just below the GE junction. Initially, I did inject 9 cc of epinephrine around the area. However, the bleeding did not slow down. Subsequently, I was able to place two hemoclips. The scope was retroflexed to see any bleeding. No bleeding seen, but the clips can be seen. There were some residual of blood clots left in the stomach. Water was irrigated and washed out. I withdrew the scope back into the esophagus and waited a few minutes and went back to the stomach again. I could not see any more arterial pumper and the bleeding had stopped . The hemoclips were found to be in good position. Water was irrigated and washed out and another retroflexion done to make sure there was no active bleeding seen. At the end of the procedure, no active bleeding seen. RECOMMENDATION: 1. Follow up H and H. 2. Will hold off Xarelto for time being. 3. Continue IV Protonix. 4. If stable, we will consider clear liquid diet tomorrow morning. Job ID: [id number] MTDD
[2020-03-25 02:42] LABS: #Eosinphils 0.3 thou/uL (0.0-0.7); #Lymphocytes 0.7 thou/uL (1.20-3.40); #Monocytes 0.6 thou/uL (0.11-0.59); #Neutrophils 6.6 thou/uL (1.40-6.50); %Basophils 0.3 % (0.0-1.0); %Eosinophils 3.1 % (0.0-10.0); %Lymphocytes 8.1 % (21.0-51.0); %Monocytes 7.6 % (0.0-10.0); %Neutrophils 80.9 % (42.0-75.0); Hemoglobin 9.2 g/dL (14.0-18.0); Mean Corpuscular HGB CONC 35.5 g/dL (32.0-36.0); Mean Corpuscular Hemoglobin 29.9 pg (27.0-31.0); Mean Corpuscular Volume 84.3 fL (78.0-98.0); Mean Platelet Volume 8.4 fL (7.4-10.4); Platelet Count 113 thou/uL (130-400); RBC Distribution Width 13.2 % (11.5-14.5); Red Blood Cell (RBC) Count 3.09 mill/uL (4.70-6.10); White Blood Cell (WBC) Count 8.2 thou/uL (4.8-10.8)
[2020-03-25 03:10] LABS: Phosphorus 1.9 mg/dL (2.3-4.7)
[2020-03-25 03:11] LABS: ALT (SGPT) 10 U/L (8-55); AST (SGOT) 16 U/L (5-34); Albumin 2.9 g/dL (3.4-4.8); Alkaline Phosphatase 30 U/L (40-110); Anion Gap 8 mmol/L (10-20); BUN (Urea Nitrogen) 15 mg/dL (8.4-25.7); Bilirubin, Total 0.9 mg/dL (0.2-1.2); Calc. Creatinine Clearance 67 mL/min (70-130); Calcium 8.2 mg/dL (7.8-10.44); Carbon Dioxide 26 mmol/L (23-31); Chloride 103 mmol/L (98-107); Estimated GFR-MDRD 61; Globulin 2.2 g/dL (2.4-3.5); Glucose 94 mg/dL (83-110); Magnesium 1.8 mg/dL (1.6-2.6); Potassium 3.9 mmol/L (3.5-5.1); Protein, Total 5.1 g/dL (5.8-8.1); Sodium 133 mmol/L (136-145)
--- NOTE | 2020-03-25 06:13 | PRG ---
DATE OF SERVICE: 03/24/2020 SUBJECTIVE: Osito Perez is a very pleasant 85-year-old male hospitalized 2 days ago with upper GI bleeding. The patient has had an esophageal dilation by [facility] Donnel[facility] The patient takes Xarelto for atrial fibrillation. He got back Xarelto yesterday same day after dilation. The patient underwent EGD by Dr. Clint Mondragon pumper over the GE junction and underwent clipping. The patient did well for about 12 hours and started having bleeding late Wednesday night. Underwent EGD in the early intervention school psychologist of Wednesday and was found to have a large amount of blood and active bleeding. The clips placed by Dr. Mondragon were dislodged and . He underwent repeat clipping and injection of epinephrine. He did well yesterday and tonight he had no stool or any problem. . This morning when I went to see him, he was sitting on the commode and passing a large amount of liquid tarry stool. OBJECTIVE: VITAL SIGNS: He is also tachycardic with pulse rate of 110. His blood pressure is 170/69. CARDIOVASCULAR SYSTEM: Within normal limits. ABDOMEN: Soft. No organomegaly. No tenderness. LABORATORY DATA: Shows blood count dropping down to 7.6 from 9.7 yesterday. The last one was about 8.9 last night. His chemistry panel shows BUN is 23, glucose 119. Lytes are normal. PLAN: 1. Transfuse 2 units of packed RBCs. 2. Rescope the patient later this morning. Job ID: [id number]
--- NOTE | 2020-03-25 08:21 | OP ---
DATE OF PROCEDURE: 03/24/2020 PROCEDURES PERFORMED: 1. Esophagogastroduodenoscopy. 2. Injection of 1:10,000 epinephrine 5 mL at the previous hemoclip placement. 3. Two more additional hemoclips placed just below the GE junction. PREOPERATIVE DIAGNOSIS: Recurrent gastrointestinal bleeding. POSTOPERATIVE DIAGNOSES: No active bleeding seen. The stomach was completely empty of any blood. The patient had multiple hemoclips placed and all were identified just below the GE junction and no active bleeding seen. There were ulcerations over the proximal stomach, probably from previous injection of epinephrine and intervention. The stomach was completely empty and did not show any old blood or any fresh blood. Because of recurrent GI bleeding, I elected to place another two more clips and also injected the site with epinephrine 5 mL at 1 mL increments. DESCRIPTION OF PROCEDURE: The patient was intubated and was given sedation by Anesthesia Department. A Pentax video gastroscope, under direct vision, passed down the oropharynx past the GE junction into the stomach. The patient had a long esophagus. The stomach was completely empty. There was no blood or any coffee-ground material seen. The previously placed hemoclip site identified. I did not see any oozing of blood. Forward viewing showed really no lesion. Retroflexion of the scope in the stomach again showed the clip to be in good place except the one area which appeared to be a visible vessel .. There were two more hemoclips placed. Also, over the site, epinephrine injected 1 mL, incremented to 5 mL. The patient did have some ulceration over the proximal stomach, mostly from the previous interventions. The gastric body, gastric antrum, and duodenum, no pathology. The scope was withdrawn back again. The scope was retroflexed to make sure there was no oozing or any bleeding seen. At the end of procedure, there appeared to be good hemostasis and all the clips seemed to be in position. The stomach was decompressed and the scope was removed. RECOMMENDATIONS: 1. Clear liquid diet. 2. Transfuse. 3. Follow up H and H. Job ID: [id number] MTDD
[2020-03-25] MEDS: Pantoprazole 40 MG VIAL IVP SCH ×2 (08:53→20:30)
[2020-03-25] MEDS: Carvedilol 6.25 MG TAB PO SCH ×2 (08:54→17:10)
[2020-03-25] MEDS: Amlodipine 5 MG TAB PO SCH (08:54)
[2020-03-25] MEDS: Atorvastatin Calcium 10 MG TAB PO SCH (09:00)
[2020-03-25] MEDS: HumaLOG 300 UNITS/3 ML VIAL SC PRN (11:51)
--- NOTE | 2020-03-25 13:14 | PRG ---
DATE OF SERVICE: 03/25/2020 SUBJECTIVE: Osito Perez had no bleeding on endoscopy. Yesterday's hemoglobin is 9.2. He is up in the chair. He wants to start walking with Physical Therapy. His hemodynamics have been stable. OBJECTIVE: LUNGS: Clear. HEART: Regular rhythm. ABDOMEN: Soft. EXTREMITIES: Without edema. IMPRESSION: Gastrointestinal bleed at his gastroesophageal junction, felt to be secondary to a [place] tear. PLAN: Continue supportive care. Job ID: [id number]
--- NOTE | 2020-03-25 14:18 | PDOC.HOSPP ---
- Subjective Encounter Date: 03/25/20 Encounter Time: 14:16 Subjective: alert, cheerfull, still passing dark stool - Objective Vital Signs & Weight: Vital Signs (12 hours) Temp Pulse Pulse Ox 03/25/20 11:00 97.9 F 03/25/20 08:54 98 03/25/20 07:39 97 03/25/20 07:09 97 03/25/20 07:00 98.4 F 03/25/20 05:00 98.2 F Weight Admit Weight 220 lb 10.923 oz Weight 221 lb 14.4 oz Most Recent Monitor Data Heart Rate from ECG 83 NIBP 141/62 NIBP BP-Mean 88 Respiration from ECG 4 SpO2 90 I&O: 03/24/20 03/25/20 03/26/20 06:59 06:59 06:59 Intake Total 3392 3975 680 Output Total 1800 3900 1600 Balance 1592 75 -920 Result Diagrams: 03/25/20 02:25 03/25/20 02:25 Additional Labs: Accuchecks 03/25/20 03/25/20 03/24/20 11:44 06:14 21:31 POC Glucose 179 H 90 136 H 03/24/20 03/24/20 03/23/20 17:26 13:03 11:48 POC Glucose 122 H 110 H 177 H Hospitalist ROS - Medication Medications: Active Medications Generic Name Dose Route Start Last Admin Trade Name Freq PRN Reason Stop Dose Admin Amlodipine Besylate 2.5 mg 03/25/20 09:00 03/25/20 08:54 Amlodipine 5 Mg Tab PO 2.5 mg DAILY MELANIA Administration Atorvastatin Calcium 10 mg 03/24/20 09:00 03/25/20 09:00 Atorvastatin Calcium 10 Mg Tab PO 10 mg DAILY MELANIA Administration Carvedilol 6.25 mg 03/24/20 17:00 03/25/20 08:54 Carvedilol 6.25 Mg Tab PO 6.25 mg BID-WM MELANIA Administration Sodium Chloride 1,000 mls @ 30 mls/hr 03/23/20 23:15 03/24/20 23:35 Normal Saline 0.9% IV Not Given .Q24H MELANIA Insulin Human Lispro 0 units 03/22/20 09:18 03/25/20 11:51 Humalog 300 Units/3 Ml Vial SC 2 unit .MODERATE SLIDING SC PRN Administration Moderate Correctional Scale Ondansetron HCl 4 mg 03/22/20 18:00 03/22/20 21:29 Ondansetron Pf 4 Mg/2 Ml Vial IVP 4 mg Q4H PRN Administration Nausea/Vomiting Pantoprazole Sodium 40 mg 03/22/20 21:00 03/25/20 08:53 Pantoprazole 40 Mg Vial IVP 40 mg Q12HR MELANIA Administration Throat Lozenges 1 bharti 03/23/20 17:57 03/23/20 18:15 Cepastat Lozenges 1 Bharti PO 1 bharti Q1H PRN Administration Cough - Exam General Appearance: awake alert Neck: no JVD Heart: RRR Respiratory: CTAB Gastrointestinal: soft, normal bowel sounds Extremities - other findings: 1+anasarca Hosp A/P (1) Upper GI bleeding Code(s): K92.2 - GASTROINTESTINAL HEMORRHAGE, UNSPECIFIED Status: Acute (2) Acute blood loss anemia Code(s): D62 - ACUTE POSTHEMORRHAGIC ANEMIA Status: Acute (3) CKD (chronic kidney disease), stage III Code(s): N18.3 - CHRONIC KIDNEY DISEASE, STAGE 3 (MODERATE) * DO NOT USE * Status: Chronic Qualifiers: Chronic kidney disease stage 3 subtype: stage 3b (GFR 30-44) Qualified Code(s): N18.32 - Chronic kidney disease, stage 3b (4) Diabetes mellitus type 2 in nonobese Code(s): E11.9 - TYPE 2 DIABETES MELLITUS WITHOUT COMPLICATIONS Status: Chronic - Plan post multiple EGD with hemostasis post 8 units PRBC cont current meds serial H&H discuss with GI transfuse for Hg <7.0
--- NOTE | 2020-03-25 16:00 | PRG ---
DATE OF SERVICE: 03/25/2020 SUBJECTIVE: Mr. Perez is tolerating his liquid diet well. He is sitting up in the chair at the bedside. Does not have any pain. He is spitting some of his saliva up and suctioning that out. He has kept full liquids down without any painful swallowing. He had one maroon stool today. One dark stool yesterday. PHYSICAL EXAMINATION: VITAL SIGNS: Temperature 98.1, pulse 83, blood pressure 141/71. GENERAL: He is in no acute distress. Alert and oriented x3. LUNGS: Clear to auscultation bilaterally. HEART: Regular rate and rhythm with a 3/6 systolic murmur. ABDOMEN: Soft, nontender, and nondistended. Bowel sounds are present. EXTREMITIES: No lower extremity edema. LABORATORY DATA: Creatinine 1.14. Hemoglobin is 9.2 today. Last transfusion was yesterday at 12:41. His hemoglobin is stable since then. He has received a total of 8. IMPRESSION: Gastrointestinal bleed from tear at the GE junction, status post esophageal dilation. This has been treated with hemoclip placement by followup endoscopy x2. His hemoglobin is stable now, status post 8 units transfusion. He is tolerating full liquids well. RECOMMENDATIONS: 1. We will recheck his hemoglobin tomorrow morning and continue with full liquids for now. 2. Continue pantoprazole IV. Job ID: [id number]
[2020-03-26] MEDS: Sodium Chloride 0.9% 1,000 ML IV SCH ×2 (06:41→23:19)
[2020-03-26] MEDS: Atorvastatin Calcium 10 MG TAB PO SCH (09:35)
[2020-03-26] MEDS: Amlodipine 5 MG TAB PO SCH (09:35)
[2020-03-26] MEDS: Carvedilol 6.25 MG TAB PO SCH ×2 (09:36→16:39)
[2020-03-26] MEDS: Pantoprazole 40 MG VIAL IVP SCH ×2 (09:49→21:02)
[2020-03-26] MEDS: HumaLOG 300 UNITS/3 ML VIAL SC PRN ×2 (10:58→16:40)
--- NOTE | 2020-03-26 11:19 | PDOC.HOSPP ---
- Subjective Encounter Date: 03/26/20 Encounter Time: 11:17 Subjective: alert , cheefull. no pain, no BM yet today - Objective Vital Signs & Weight: Vital Signs (12 hours) Temp Pulse BP Pulse Ox 03/26/20 09:36 157/77 H 03/26/20 09:35 75 157/77 H 03/26/20 08:00 98.4 F 95 03/26/20 07:50 99 03/26/20 05:00 98.4 F 03/26/20 00:00 98.6 F Weight Admit Weight 220 lb 10.923 oz Weight 221 lb 14.4 oz Most Recent Monitor Data Heart Rate from ECG 82 NIBP 151/82 NIBP BP-Mean 105 Respiration from ECG 13 SpO2 100 I&O: 03/25/20 03/26/20 03/27/20 06:59 06:59 06:59 Intake Total 3975 1655 Output Total 3900 2550 600 Balance 75 -3895 -600 Result Diagrams: 03/25/20 02:25 03/25/20 02:25 Additional Labs: Accuchecks 03/26/20 03/26/20 03/25/20 10:56 03:41 20:34 POC Glucose 163 H 110 H 171 H 03/25/20 03/25/20 17:07 11:44 POC Glucose 125 H 179 H Hospitalist ROS - Medication Medications: Active Medications Generic Name Dose Route Start Last Admin Trade Name Freq PRN Reason Stop Dose Admin Amlodipine Besylate 2.5 mg 03/25/20 09:00 03/26/20 09:35 Amlodipine 5 Mg Tab PO 2.5 mg DAILY MELANIA Administration Atorvastatin Calcium 10 mg 03/24/20 09:00 03/26/20 09:35 Atorvastatin Calcium 10 Mg Tab PO 10 mg DAILY MELANIA Administration Carvedilol 6.25 mg 03/24/20 17:00 03/26/20 09:36 Carvedilol 6.25 Mg Tab PO 6.25 mg BID-WM MELANIA Administration Sodium Chloride 1,000 mls @ 30 mls/hr 03/23/20 23:15 03/26/20 06:41 Normal Saline 0.9% IV Not Given .Q24H MELANIA Insulin Human Lispro 0 units 03/22/20 09:18 03/26/20 10:58 Humalog 300 Units/3 Ml Vial SC 2 unit .MODERATE SLIDING SC PRN Administration Moderate Correctional Scale Ondansetron HCl 4 mg 03/22/20 18:00 03/22/20 21:29 Ondansetron Pf 4 Mg/2 Ml Vial IVP 4 mg Q4H PRN Administration Nausea/Vomiting Pantoprazole Sodium 40 mg 03/22/20 21:00 03/26/20 09:49 Pantoprazole 40 Mg Vial IVP 40 mg Q12HR MELANIA Administration Throat Lozenges 1 bharti 03/23/20 17:57 03/23/20 18:15 Cepastat Lozenges 1 Bharti PO 1 bharti Q1H PRN Administration Cough - Exam General Appearance: awake alert Neck: no JVD Heart: RRR, III/IV Respiratory: CTAB Gastrointestinal: soft, normal bowel sounds Extremities: no edema Hosp A/P (1) Upper GI bleeding Code(s): K92.2 - GASTROINTESTINAL HEMORRHAGE, UNSPECIFIED Status: Acute (2) Acute blood loss anemia Code(s): D62 - ACUTE POSTHEMORRHAGIC ANEMIA Status: Acute (3) DM type 2 causing CKD stage 3 Code(s): E11.22 - TYPE 2 DIABETES MELLITUS W DIABETIC CHRONIC KIDNEY DISEASE; N18.30 - CHRONIC KIDNEY DISEASE, STAGE 3 UNSPECIFIED Status: Acute Qualifiers: Diabetes mellitus fci insulin use: with fci use (4) CAD (coronary artery disease) Code(s): I25.10 - ATHSCL HEART DISEASE OF [place] CORONARY ARTERY W/O ANG PCTRS Status: Acute Qualifiers: Coronary Disease-Associated Artery/Lesion type: [place] artery [place] vs. transplanted heart: [place] heart Associated angina: without angina Qualified Code(s): I25.10 - Atherosclerotic heart disease of [place] coronary artery without angina pectoris (5) Mitral insufficiency Status: Chronic Qualifiers: Cardiac valve disease etiology: etiology unspecified Qualified Code(s): I34.0 - Nonrheumatic mitral (valve) insufficiency - Plan post multiple EGD with hemostasis post 8 units PRBC cont current meds serial H&H discuss with GI transfuse for Hg <7.0
[2020-03-26 11:28] LABS: #Eosinphils 0.2 thou/uL (0.0-0.7); #Lymphocytes 0.7 thou/uL (1.20-3.40); #Monocytes 0.7 thou/uL (0.11-0.59); #Neutrophils 4.4 thou/uL (1.40-6.50); %Basophils 0.8 % (0.0-1.0); %Eosinophils 2.9 % (0.0-10.0); %Lymphocytes 12.1 % (21.0-51.0); %Neutrophils 72.2 % (42.0-75.0); Hemoglobin 10.2 g/dL (14.0-18.0); Mean Corpuscular HGB CONC 33.7 g/dL (32.0-36.0); Mean Corpuscular Hemoglobin 29.3 pg (27.0-31.0); Mean Corpuscular Volume 86.7 fL (78.0-98.0); Mean Platelet Volume 8.9 fL (7.4-10.4); Platelet Count 137 thou/uL (130-400); RBC Distribution Width 13.4 % (11.5-14.5); Red Blood Cell (RBC) Count 3.48 mill/uL (4.70-6.10); White Blood Cell (WBC) Count 6.1 thou/uL (4.8-10.8)
--- NOTE | 2020-03-26 14:39 | PRG ---
DATE OF SERVICE: 03/26/2020 SUBJECTIVE: Mr. Perez is feeling pretty well today. He has been walking around the floor, a little short of breath with exertion. He is not having any chest pain, abdominal pain, or nausea. His last bowel movement was yesterday and was dark black in color, but he has not had any bowel movements so far today. He has remained hemodynamically stable. Hemoglobin came up from 9.2 to 10.2 without transfusion yesterday. OBJECTIVE: VITAL SIGNS: Temperature 98.5, pulse 75, blood pressure 152/72, and oxygen saturation 99% on room air. GENERAL: He is pale, but sitting up in chair comfortably, in no distress. Alert and oriented. HEART: Regular rate and rhythm. Loud systolic murmur. LUNGS: Clear to auscultation bilaterally. ABDOMEN: Bowel sounds present. Soft and nontender to palpation. EXTREMITIES: No peripheral edema. LABORATORY STUDIES: Hemoglobin up to 10.2, WBC 6.1, and platelets 137. INR 1.6. ASSESSMENT AND PLAN: Upper gastrointestinal bleeding from tear at the gastroesophageal junction, status post esophageal dilation. This has been treated with multiple HemoClip placement under multiple endoscopies, last esophagogastroduodenoscopy 2 days ago. Hemoglobin remained stable now, but he has received 8 units transfusion earlier this admission. He continues to tolerate full liquid diet well. Continue to trend H and H tomorrow morning. I would continue with full liquid diet for today. Tomorrow, if continuing to do well, consider advancing diet to GI soft diet. Continue the pantoprazole IV. Job ID: [id number]
--- NOTE | 2020-03-26 21:06 | PRG ---
DATE OF SERVICE: 03/26/2020 SUBJECTIVE: Osito Perez remains hemodynamically stable. OBJECTIVE: VITAL SIGNS: Blood pressure 142/73, heart rate 72, respiratory rates in the low 20s. LUNGS: Clear. HEART: Regular rhythm. ABDOMEN: Soft. LABORATORY DATA: Hemoglobin is 10.2. Overall, he is stable. This is whether he is strong enough to go to the house. He is stable from a medical standpoint. Job ID: [id number]
[2020-03-27] MEDS: Carvedilol 6.25 MG TAB PO SCH ×2 (08:06→17:10)
[2020-03-27] MEDS: Atorvastatin Calcium 10 MG TAB PO SCH (08:06)
[2020-03-27] MEDS: Pantoprazole 40 MG VIAL IVP SCH (08:07)
[2020-03-27] MEDS: Amlodipine 5 MG TAB PO SCH (08:07)
[2020-03-27 09:12] LABS: Hemoglobin 10.6 g/dL (14.0-18.0)
[2020-03-27] MEDS: HumaLOG 300 UNITS/3 ML VIAL SC PRN ×2 (09:43→17:10)
--- NOTE | 2020-03-27 09:56 | PRG ---
DATE OF SERVICE: 03/27/2020 SUBJECTIVE: The patient had an uneventful night last night except for some back pain. There is no overt bleeding. He did pass some gas, but no bowel movement. There is no nausea or vomiting. He is tolerating full liquids. He is able to ambulate twice around the ICU hallway yesterday. PHYSICAL EXAMINATION: VITAL SIGNS: Temperature is 98, blood pressure 142/73, pulse of 75. GENERAL: He is alert, conversant without distress. HEENT: Shows anicteric sclerae. Oropharynx is clear and moist. CV: Shows normal S1, S2. Regular rate and rhythm. CHEST: Shows breath sounds. ABDOMEN: Soft and nontender. No palpable mass. No organomegaly. He has active bowel sounds. No tympany or distention. EXTREMITIES: Show no edema. LABORATORY DATA: Hemoglobin is 10.6 this morning. ASSESSMENT: Status post upper gastrointestinal bleed following outpatient esophageal dilatation. No signs of bleeding over the last 2 to 3 days with last endoscopy did not show any active bleeding. Blood count has remained stable since multiple transfusion. RECOMMENDATIONS: 1. Advance diet. 2. The patient can be discharged home from GI standpoint later today on pantoprazole 40 mg p.o. b.i.d. 3. Recommend holding Xarelto for one week after discharge. 4. The patient can be discharged home from GI standpoint before becomes too physically deconditioned from hospitalization with outpatient followup in GI Clinic within two weeks. Job ID: [id number]
[2020-03-27 12:18] VITALS: TEMP 97.8
--- NOTE | 2020-03-27 16:17 | PRG ---
DATE OF SERVICE: SUBJECTIVE: Osito Junior hemoglobin is stable at 10.6 today. He has no complaints. He is ambulating. He requires minimal assistance. OBJECTIVE: VITAL SIGNS: Blood pressure 126/66, heart rate 78, respiratory rates in the teens. LUNGS: Clear. HEART: Regular rhythm. ABDOMEN: Soft. IMPRESSION: Gastrointestinal bleed, clinically stable. I feel he is strong enough probably to go home. Job ID: [id number]
[2020-03-27 17:15] VITALS: BP 142/73
--- NOTE | 2020-03-27 17:35 | DIS ---
DATE OF ADMISSION: 03/23/2020 DATE OF DISCHARGE: 03/27/2020 PRIMARY CARE PROVIDER: Dr. García Richard. DISCHARGE DISPOSITION: Discharged home. FINAL DIAGNOSES: Upper gastrointestinal bleeding; acute blood loss anemia; atrial fibrillation, chronic anticoagulation; diabetes mellitus, type 2; hypertension; dyslipidemia; acute renal failure, resolved. DISCHARGE MEDICATIONS: 1. Xarelto 15 mg once a day, to be held for 7 days, to start on 04/03/2020. 2. Protonix 40 mg p.o. daily. 3. Amlodipine 2.5 mg a day. 4. Tricor 145 mg a day. 5. Coreg 6.25 mg twice a day. 6. Atorvastatin 10 mg a day. 7. Insulin degludec 22 units subcu in the evening. 8. Januvia 100 mg a day. ALLERGIES: NO KNOWN DRUG ALLERGIES. CODE STATUS: Full. DIET: Diabetic. PENDING AT TIME OF DISCHARGE: Nothing. CONSULTATIONS DURING HOSPITAL STAY: Dr. Fletcher Mondragon on 03/22/2020. OPERATIVE PROCEDURES: On 03/22/2020, esophagogastroduodenoscopy with control of hemorrhage. On 03/25/2020, esophagogastroduodenoscopy with control of bleeding by Dr. Ventura Ring. HOSPITAL COURSE: The patient was admitted to the hospital with profound weakness. His initial blood pressure was 91/51, hemoglobin was 9, hematocrit was 29.6, and a mild lactic acidosis. BUN was 47, creatinine 1.94. His Xarelto was held. He was transfused. Hemoglobin and hematocrit measured every 6 hours. He was started on IV Protonix twice a day. GI was consulted. As mentioned before, he had two operative procedures for control bleeding. His initial hemoglobin was 9.9. It was kept above 7 during his hospital stay. His bleeding recurred as mentioned before. He is currently stable. He has received multiple transfusions with fresh frozen plasma and packed cells currently. He has had no further bleeding since his second procedure. His low hemoglobin was on 03/24/2020, it was 7.6, it climbed steadily to 8.8, 9.2, 10.2, to 10.6 today. As I said, his Xarelto is being held. He is being transitioned from IV Protonix to Protonix 40 mg p.o. b.i.d. for one month. His cardiorespiratory exam is unremarkable. He is ambulating through the hospital without any difficulty. He is being discharged with followup with PCP in 3 to 7 days. Follow up with Dr. Donnelly in 2 weeks. Recurrent bleeding symptoms, etc have been discussed with him and his friends who were with him who take good care of him. His initial lactic acid was 3.6, which came down to 2.4, which came down to 1.8 by 03/23. Blood sugars were monitored, treated with insulin, etc. His last four recorded blood sugars are 136, 125. He is doing quite well. Job ID: [id number]
== END 2020-03-27 17:50 | disposition home or self-care (01) | DRG 369 ==
LOC: ERS 04:11 → 2NO 06:31 → IMCU/EMU 03-23 00:37 → CCU 03-23 05:49 → OBSVTOIN 03-23 12:05
PROVIDERS: ADMIT Internal Medicine; ATTEND Internal Medicine
PROC: 0W3P8ZZ Control Bleeding in Gastrointestinal Tract, Via Natural or Artificial Opening Endoscopic (ICD-10-PCS; principal; 2020-03-22)
PROC: 3E0G8GC Introduction of Other Therapeutic Substance into Upper GI, Via Natural or Artificial Opening Endoscopic (ICD-10-PCS; 2020-03-22)
PROC: 30233N1 Transfusion of Nonautologous Red Blood Cells into Peripheral Vein, Percutaneous Approach (ICD-10-PCS; 2020-03-22)
PROC: 0W3P8ZZ Control Bleeding in Gastrointestinal Tract, Via Natural or Artificial Opening Endoscopic (ICD-10-PCS; 2020-03-23)
PROC: 3E0G8GC Introduction of Other Therapeutic Substance into Upper GI, Via Natural or Artificial Opening Endoscopic (ICD-10-PCS; 2020-03-23)
PROC: 30233K1 Transfusion of Nonautologous Frozen Plasma into Peripheral Vein, Percutaneous Approach (ICD-10-PCS; 2020-03-23)
PROC: 0W3P8ZZ Control Bleeding in Gastrointestinal Tract, Via Natural or Artificial Opening Endoscopic (ICD-10-PCS; 2020-03-24)
PROC: 3E0G8GC Introduction of Other Therapeutic Substance into Upper GI, Via Natural or Artificial Opening Endoscopic (ICD-10-PCS; 2020-03-24)
DX: K22.6 Gastro-esophageal laceration-hemorrhage syndrome (principal); N17.9 Acute kidney failure, unspecified; D62 Acute posthemorrhagic anemia; C25.9 Malignant neoplasm of pancreas, unspecified; E87.2 Acidosis; E78.00 Pure hypercholesterolemia, unspecified; Z96.652 Presence of left artificial knee joint; E11.22 Type 2 diabetes mellitus with diabetic chronic kidney disease; I12.9 Hypertensive chronic kidney disease with stage 1 through stage 4 chronic kidney disease, or unspecified chronic kidney disease; N18.30 Chronic kidney disease, stage 3 unspecified; I48.0 Paroxysmal atrial fibrillation; E83.42 Hypomagnesemia; E83.39 Other disorders of phosphorus metabolism; Z90.49 Acquired absence of other specified parts of digestive tract; Z85.118 Personal history of other malignant neoplasm of bronchus and lung; Z79.899 Other long term (current) drug therapy; Z79.4 Long term (current) use of insulin; I34.0 Nonrheumatic mitral (valve) insufficiency; I25.10 Atherosclerotic heart disease of native coronary artery without angina pectoris; Z20.828 Contact with and (suspected) exposure to other viral communicable diseases
CPT/HCPCS: 36415; 36416; 36430; 71045; 71250; 80053; 81003; 82010; 83605; 83690; 83735; 83880; 84100; 84484; 85014; 85018; 85025; 85610; 85730; 86850; 86900; 86901; 87040; 87086; 87635; 93005; 96375; 96376; C9113; G0378; J0171; J1100; J2405; J2543; J2550; J2704; J3010; J3475; J7050; P9016; P9045; P9059; U0003

== ENCOUNTER 2020-09-02 17:52 | Emergency (ER) | payer MEDICARE, BC | END 2020-09-02 19:18 | disposition home or self-care (01) | LOC: ERS 17:52 | DX: M70.22 Olecranon bursitis, left elbow (principal); I48.91 Unspecified atrial fibrillation; E78.5 Hyperlipidemia, unspecified; E11.9 Type 2 diabetes mellitus without complications; I10 Essential (primary) hypertension; Z79.899 Other long term (current) drug therapy | CPT/HCPCS: 99283 ==

== ENCOUNTER 2020-10-07 06:50 | Outpatient (CLI) | payer MEDICARE, BC ==
[2020-10-07] MEDS ORDERED: Iopamidol 370 76% 50 ML VIAL FS ONE (10:33)
[2020-10-07] MEDS ORDERED: Iopamidol 370 76% 100 ML VIAL ONE (10:33)
== END 2020-10-07 06:51 | disposition home or self-care (01) ==
LOC: CT 06:50
PROVIDERS: ATTEND Internal Medicine Hematology & Oncology
DX: C34.31 Malignant neoplasm of lower lobe, right bronchus or lung (principal); D49.0 Neoplasm of unspecified behavior of digestive system; Z90.49 Acquired absence of other specified parts of digestive tract; Z90.2 Acquired absence of lung [part of]
CPT/HCPCS: 71260; 74160; 74177; 82565; Q9967

== ENCOUNTER 2020-10-14 19:05 | Emergency (ER) | payer MEDICARE, BC ==
[2020-10-14 19:53] LABS: #Eosinphils 0.1 thou/uL (0.0-0.7); #Lymphocytes 1.4 thou/uL (1.20-3.40); #Monocytes 0.7 thou/uL (0.11-0.59); %Basophils 0.1 % (0.0-1.0); %Eosinophils 2.3 % (0.0-10.0); %Monocytes 10.8 % (0.0-10.0); %Neutrophils 64.9 % (42.0-75.0); Hemoglobin 12.1 g/dL (14.0-18.0); Mean Corpuscular Hemoglobin 26.5 pg (27.0-31.0); Mean Corpuscular Volume 82.8 fL (78.0-98.0); Mean Platelet Volume 8.6 fL (7.4-10.4); Platelet Count 230 thou/uL (130-400); Red Blood Cell (RBC) Count 4.56 mill/uL (4.70-6.10); White Blood Cell (WBC) Count 6.1 thou/uL (4.8-10.8)
[2020-10-14 20:12] LABS: ALT (SGPT) 9 U/L (8-55); AST (SGOT) 16 U/L (5-34); Albumin 4.1 g/dL (3.4-4.8); Alkaline Phosphatase 46 U/L (40-110); Anion Gap 11 mmol/L (10-20); BUN (Urea Nitrogen) 27 mg/dL (8.4-25.7); Bilirubin, Total 0.7 mg/dL (0.2-1.2); Calc. Creatinine Clearance 0 mL/min (70-130); Calcium 9.8 mg/dL (7.8-10.44); Carbon Dioxide 25 mmol/L (23-31); Chloride 95 mmol/L (98-107); Globulin 2.9 g/dL (2.4-3.5); Glucose 130 mg/dL (83-110); Lipase 20 U/L (8-78); Potassium 4.1 mmol/L (3.5-5.1); Sodium 127 mmol/L (136-145)
[2020-10-14] MEDS ORDERED: Lidocaine Viscous Sol 2% 15 ml UD Cup ONE (20:17)
[2020-10-14] MEDS ORDERED: Ondansetron PF 4 MG/2 ML Vial ONE (20:17)
[2020-10-14] MEDS ORDERED: Mag-Al 1200 mg/1200 mg/30 ML UDCUP ONE (20:17)
== END 2020-10-14 22:24 | disposition home or self-care (01) ==
LOC: ERS 19:05
DX: R42 Dizziness and giddiness (principal); I48.91 Unspecified atrial fibrillation; E78.5 Hyperlipidemia, unspecified; E78.00 Pure hypercholesterolemia, unspecified; I10 Essential (primary) hypertension; Z85.118 Personal history of other malignant neoplasm of bronchus and lung; Z79.4 Long term (current) use of insulin; Z79.01 Long term (current) use of anticoagulants; Z79.899 Other long term (current) drug therapy
CPT/HCPCS: 70450; 71045; 80053; 83690; 83735; 83880; 84484; 85025; 93005; 96374; J2405

== ENCOUNTER 2021-02-17 07:29 | Outpatient (CLI) | payer MEDICARE, BC ==
[2021-02-17] MEDS ORDERED: Iopamidol 370 76% 50 ML VIAL FS ONE (12:12)
[2021-02-17] MEDS ORDERED: Iopamidol 370 76% 100 ML VIAL ONE (12:12)
== END 2021-02-17 07:30 | disposition home or self-care (01) ==
LOC: CT 07:29
PROVIDERS: ATTEND Internal Medicine Hematology & Oncology
DX: C34.31 Malignant neoplasm of lower lobe, right bronchus or lung (principal); R91.8 Other nonspecific abnormal finding of lung field; K86.89 Other specified diseases of pancreas; N28.1 Cyst of kidney, acquired; I70.0 Atherosclerosis of aorta; Z98.890 Other specified postprocedural states; Z90.49 Acquired absence of other specified parts of digestive tract
CPT/HCPCS: 71260; 74160; 82565; Q9967

== ENCOUNTER 2021-06-02 10:29 | Emergency (ER) | payer MEDICARE, BC ==
[2021-06-02] MEDS ORDERED: Lorazepam 2 MG/ML VIAL ONE (10:52)
[2021-06-02] MEDS ORDERED: Ketorolac Tromethamine 30 MG/ML VIAL ONE (10:52)
== END 2021-06-02 12:07 | disposition home or self-care (01) ==
LOC: ERS 10:29
DX: S39.012A Strain of muscle, fascia and tendon of lower back, initial encounter (principal); I48.91 Unspecified atrial fibrillation; E11.9 Type 2 diabetes mellitus without complications; E78.5 Hyperlipidemia, unspecified; E78.00 Pure hypercholesterolemia, unspecified; I10 Essential (primary) hypertension; Z79.01 Long term (current) use of anticoagulants; Z79.899 Other long term (current) drug therapy; X50.1XXA Overexertion from prolonged static or awkward postures, initial encounter
CPT/HCPCS: 72131; 96374; 96375; J1885; J2060

== ENCOUNTER 2022-01-18 07:57 | Emergency (ER) | payer MEDICARE, BC | END 2022-01-18 08:41 | disposition home or self-care (01) | LOC: ERS 07:57 | DX: B36.9 Superficial mycosis, unspecified (principal); R19.7 Diarrhea, unspecified; E78.5 Hyperlipidemia, unspecified; I10 Essential (primary) hypertension; Z79.899 Other long term (current) drug therapy | CPT/HCPCS: 99283 ==

== ENCOUNTER 2022-01-29 07:43 | Emergency (ER) | payer BC, MEDICARE ==
[2022-01-29 08:35] LABS: Bilirubin Negative (Negative); Blood, Urine Negative (Negative); Clarity Clear (Clear); Glucose, Urine (Dipstick) Normal (Negative); Ketone, Urine Negative (Negative); Leukocyte Negative Leu/uL (Negative); Nitrite Negative (Negative); Protein, Urine (Dipstick) Negative (Neg-Trace); Specific Gravity, Urine 1.015 (1.002-1.036); Urobilinogen Normal mg/dL (Less than 2); pH, Urine 6.5 (5.0-9.0)
== END 2022-01-29 09:30 | disposition home or self-care (01) ==
LOC: ERS 07:43
DX: R30.0 Dysuria (principal); R35.0 Frequency of micturition; I49.9 Cardiac arrhythmia, unspecified; E78.00 Pure hypercholesterolemia, unspecified; E11.9 Type 2 diabetes mellitus without complications; I10 Essential (primary) hypertension; I48.91 Unspecified atrial fibrillation; Z79.899 Other long term (current) drug therapy
CPT/HCPCS: 81003; 87086; 99283

== ENCOUNTER 2022-02-06 14:08 | Emergency (ER) | payer MEDICARE ==
[2022-02-06] MEDS ORDERED: Iopamidol-370 76% 500 ML 1 ML ONE (15:24)
[2022-02-06 15:36] LABS: #Lymphocytes 1.2 thou/uL (1.20-3.40); #Monocytes 0.7 thou/uL (0.11-0.59); #Neutrophils 3.2 thou/uL (1.40-6.50); %Basophils 0.7 % (0.0-1.0); %Eosinophils 0.8 % (0.0-10.0); %Monocytes 12.8 % (0.0-10.0); %Neutrophils 62.7 % (42.0-75.0); Hemoglobin 10.9 g/dL (14.0-18.0); Mean Corpuscular HGB CONC 32.8 g/dL (32.0-36.0); Mean Corpuscular Hemoglobin 26.2 pg (27.0-31.0); Mean Corpuscular Volume 80.1 fL (78.0-98.0); Platelet Count 214 thou/uL (130-400); RBC Distribution Width 13.2 % (11.5-14.5); Red Blood Cell (RBC) Count 4.16 mill/uL (4.70-6.10); White Blood Cell (WBC) Count 5.1 thou/uL (4.8-10.8)
[2022-02-06 15:58] LABS: ALT (SGPT) 8 U/L (8-55); AST (SGOT) 14 U/L (5-34); Albumin 3.9 g/dL (3.4-4.8); Alkaline Phosphatase 37 U/L (40-110); Anion Gap 11 mmol/L (10-20); BUN (Urea Nitrogen) 32 mg/dL (8.4-25.7); Bilirubin, Total 0.8 mg/dL (0.2-1.2); Calc. Creatinine Clearance 0 mL/min (70-130); Calcium 9.6 mg/dL (7.8-10.44); Carbon Dioxide 29 mmol/L (23-31); Chloride 97 mmol/L (98-107); Estimated GFR 48; Globulin 2.9 g/dL (2.4-3.5); Glucose 197 mg/dL (83-110); Lipase 17 U/L (8-78); Protein, Total 6.8 g/dL (5.8-8.1); Sodium 132 mmol/L (136-145)
[2022-02-06 16:12] LABS: Bilirubin Negative (Negative); Blood, Urine Negative (Negative); Clarity Clear (Clear); Glucose, Urine (Dipstick) 50 mg/dL (Negative); Ketone, Urine Negative (Negative); Leukocyte Negative Leu/uL (Negative); Nitrite Negative (Negative); Protein, Urine (Dipstick) Negative (Neg-Trace); Specific Gravity, Urine 1.011 (1.002-1.036); Urobilinogen Normal mg/dL (Less than 2)
== END 2022-02-06 17:25 | disposition home or self-care (01) ==
LOC: ERS 14:08
DX: K59.00 Constipation, unspecified (principal); I48.91 Unspecified atrial fibrillation; E78.00 Pure hypercholesterolemia, unspecified; E11.9 Type 2 diabetes mellitus without complications; I10 Essential (primary) hypertension; Z79.01 Long term (current) use of anticoagulants; Z79.899 Other long term (current) drug therapy
CPT/HCPCS: 36415; 74177; 80053; 81003; 83690; 85025; 96360; Q9967

== ENCOUNTER 2022-11-16 15:49 | Emergency (ER) | payer MEDICARE, BC ==
[~2022-11-16 15:49] MED LIST: Iopamidol-370 76% 500 ML MDV (1 ML CHARGE) ONE
[2022-11-16 16:09] LABS: Bacteria/HPF None Seen HPF (None Seen); Bilirubin Negative (Negative); Blood, Urine Negative (Negative); CAUTI Indications for Culture Pelvic or flank pain; Clarity Clear (Clear); Glucose, Urine (Dipstick) Normal (Negative); Ketone, Urine Negative (Negative); Leukocyte Negative Leu/uL (Negative); Nitrite Negative (Negative); Protein, Urine (Dipstick) 20 mg/dL (Neg-Trace); RBC/HPF 0-3 HPF (0-3); Specific Gravity, Urine 1.018 (1.002-1.036); Squamous Epithelial None Seen HPF (0-3); Urobilinogen Normal mg/dL (Less than 2); WBC/HPF 0-3 HPF (0-3)
[2022-11-16 16:13] LABS: Urine Culture Reflex No No
[2022-11-16 17:06] LABS: #Eosinphils 0.1 thou/uL (0.0-0.7); #Monocytes 0.6 thou/uL (0.11-0.59); #Neutrophils 3.9 thou/uL (1.40-6.50); %Basophils 0.3 % (0.0-1.0); %Lymphocytes 20.4 % (21.0-51.0); %Monocytes 10.9 % (0.0-10.0); %Neutrophils 67.2 % (42.0-75.0); Hemoglobin 11.9 g/dL (14.0-18.0); Mean Corpuscular Hemoglobin 26.7 pg (27.0-31.0); Mean Corpuscular Volume 81.1 fl (78.0-98.0); Mean Platelet Volume 10.7 fL (7.4-10.4); Platelet Count 248 10x3/uL (130-400); RBC Distribution Width 14.6 % (11.5-14.5); Red Blood Cell (RBC) Count 4.45 mill/uL (4.70-6.10); White Blood Cell (WBC) Count 5.8 10x3/uL (4.8-10.8)
[2022-11-16 17:31] LABS: ALT (SGPT) 7 U/L (8-55); AST (SGOT) 16 U/L (5-34); Albumin 4.1 g/dL (3.4-4.8); Alkaline Phosphatase 32 U/L (40-110); Anion Gap 12 mmol/L (10-20); BUN (Urea Nitrogen) 29 mg/dL (8.4-25.7); Bilirubin, Total 0.9 mg/dL (0.2-1.2); Calc. Creatinine Clearance 0 mL/min (70-130); Calcium 10.2 mg/dL (7.8-10.44); Carbon Dioxide 24 mmol/L (23-31); Chloride 99 mmol/L (98-107); Estimated GFR 40; Globulin 2.8 g/dL (2.4-3.5); Glucose 124 mg/dL (83-110); Potassium 4.8 mmol/L (3.5-5.1); Protein, Total 6.9 g/dL (5.8-8.1); Sodium 130 mmol/L (136-145)
== END 2022-11-16 19:41 | disposition home or self-care (01) ==
LOC: ERS 15:49
DX: K59.00 Constipation, unspecified (principal); K86.9 Disease of pancreas, unspecified; E78.00 Pure hypercholesterolemia, unspecified; E11.9 Type 2 diabetes mellitus without complications; I10 Essential (primary) hypertension; Z79.899 Other long term (current) drug therapy
CPT/HCPCS: 36415; 74177; 80053; 81001; 85025; Q9967

== ENCOUNTER 2023-11-17 08:23 | Outpatient (CLI) | payer MEDICARE ==
[2023-11-17] MEDS ORDERED: Iopamidol 370 76% 100 ML VIAL ONE (12:07)
== END 2023-11-17 08:24 | disposition home or self-care (01) ==
LOC: BICCT 08:23
PROVIDERS: ATTEND Internal Medicine Hematology & Oncology
DX: K86.89 Other specified diseases of pancreas (principal); C34.90 Malignant neoplasm of unspecified part of unspecified bronchus or lung; J98.4 Other disorders of lung; I70.8 Atherosclerosis of other arteries
CPT/HCPCS: 74160; 82565; Q9967